=== PATIENT | female | born 1970 | race American Indian/Alaskan Native ===

== ENCOUNTER 2020-01-09 11:32 | Outpatient (REF) | payer MEDICAID, SELFPAY | END 2020-01-09 11:33 | disposition home or self-care (01) | LOC: HO.LAB 11:32 | PROVIDERS: PCP Registered Nurse; Visit Provider Internal Medicine | DX: Z20.828 Contact with and (suspected) exposure to other viral communicable diseases (principal) | CPT/HCPCS: C9803; U0003 ==

== ENCOUNTER 2020-01-10 07:48 | Outpatient (REF) | payer MEDICAID, SELFPAY ==
--- NOTE | 2020-01-10 07:57 | XR_ITS ---
EXAMINATION: XR SHOULDER, RIGHT CLINICAL INFORMATION: Pain. COMPARISON: None TECHNIQUE: AP external rotation, Grashey, scapular Y, and axillary views of the right shoulder. FINDINGS: The glenohumeral joint space is normal. There is mild periapical spurring in the right AC joint. No visible acute fracture, dislocation or subluxation seen. The soft tissues are normal. XR/XR shoulder RT min 2V IMPRESSION: Mild degenerative changes in the right AC joint. Rest of the right shoulder is unremarkable.
== END 2020-01-10 07:49 | disposition home or self-care (01) ==
LOC: HO.XRAY 07:48
PROVIDERS: PCP Registered Nurse; Visit Provider Registered Nurse
DX: M25.511 Pain in right shoulder (principal); G89.29 Other chronic pain
CPT/HCPCS: 73030

== ENCOUNTER 2020-02-06 09:00 | Outpatient (RCR) | payer MEDICAID, SELFPAY ==
[2020-01-09 08:12] VITALS: BP 118/56; PULSE 77
== END 2020-03-11 13:36 | disposition other institution (70) ==
LOC: HO.PT 09:00
PROVIDERS: PCP Registered Nurse; Visit Provider Registered Nurse
DX: M25.511 Pain in right shoulder (principal)
CPT/HCPCS: 97110; 97112; 97140; 97162; 97530

== ENCOUNTER → 2020-02-12 08:57 | Outpatient (BNVA) | payer MEDICAID, SELFPAY | PROVIDERS: PCP Registered Nurse; Visit Provider Nurse Practitioner | DX: Z13.89 Encounter for screening for other disorder (principal) | CPT/HCPCS: 99212 ==

== ENCOUNTER 2020-03-07 | Outpatient (REF) | payer MEDICAID, SELFPAY ==
[2020-03-11 14:51] LABS: FIT1 NEGATIVE (NEGATIVE); FIT2 NEGATIVE (NEGATIVE)
[2020-03-11 14:52] LABS: FIT Int Ctl YES
== END 2020-03-07 00:01 | disposition home or self-care (01) ==
LOC: HO.LNP
PROVIDERS: Visit Provider Nurse Practitioner
DX: Z12.11 Encounter for screening for malignant neoplasm of colon (principal); K21.9 Gastro-esophageal reflux disease without esophagitis
CPT/HCPCS: 82274

== ENCOUNTER 2020-03-16 10:13 | Outpatient (REF) | payer MEDICAID, SELFPAY ==
--- NOTE | 2020-03-16 10:17 | MM_ITS ---
EXAMINATION: MM SCREENING DIGITAL BREAST TOMOSYNTHESIS, BILATERAL CLINICAL INFORMATION: Screening. Asymptomatic. The lifetime risk of breast cancer based on the Tyrer-Cuzick Model is 9.2%. COMPARISON: Mammography: March 11, 2019 and studies dating back to November 20, 2010 TECHNIQUE: Digital breast tomosynthesis is performed in both the craniocaudal and mediolateral oblique views along with computer-aided detection (CAD). Synthesized 2D images are generated from the tomosynthesis. FINDINGS: The breasts are heterogeneously dense, which may obscure small masses (ACR BI-RADS breast composition Category c). There are no significant masses, abnormal calcifications, or other abnormalities. MM/MM tomosynthesis screening BI IMPRESSION: There are no significant changes from prior study. ASSESSMENT: BI-RADS 1: Negative RECOMMENDATION: Routine annual mammography screening. This patient's information was entered into a reminder system with a target due date for their next mammogram.
== END 2020-03-16 10:14 | disposition home or self-care (01) ==
LOC: HO.MAMMO 10:13
PROVIDERS: PCP Registered Nurse; Visit Provider Registered Nurse
DX: Z12.31 Encounter for screening mammogram for malignant neoplasm of breast (principal)
CPT/HCPCS: 77063; 77067

== ENCOUNTER → 2020-04-08 08:39 | Outpatient (BNVA) | payer MEDICAID, SELFPAY | PROVIDERS: PCP Registered Nurse; Visit Provider Nurse Practitioner ==

== ENCOUNTER 2020-05-15 11:41 | Outpatient (REF) | payer MEDICAID, SELFPAY ==
[2020-05-15 14:34] LABS: SARS COV2 PCR INHOUSE NEGATIVE (Negative)
== END 2020-05-15 11:42 | disposition home or self-care (01) ==
LOC: HO.LAB 11:41
PROVIDERS: Visit Provider Internal Medicine
DX: Z20.822 Contact with and (suspected) exposure to COVID-19 (principal)
CPT/HCPCS: C9803; U0003

== ENCOUNTER 2020-08-06 09:30 | Outpatient (REF) | payer MEDICAID, SELFPAY ==
[2020-08-06 11:49] LABS: MANUAL DIFF FLAG NO
[2020-08-06 12:03] LABS: Basophils Absolute Auto 0.1 X10*3/uL (0.0-0.2); Basophils Percent Auto 0.8 % (0-2); Eosinophils Absolute Auto 0.3 X10*3/uL (0.0-0.4); Eosinophils Percent Auto 2.9 % (0-4); Hemoglobin 14.1 g/dl (12.0-16.0); Imm Gran Abs Auto 0.05 X10*3/uL (0.00-0.03); Imm Gran Pct Auto 0.6 % (0.0-0.4); Lymphocytes Absolute Auto 3.4 X10*3/uL (1.2-4.9); Lymphocytes Percent Auto 38.8 % (20-40); Mean Corpuscular HGB Conc 32.8 g/dl (31.0-35.0); Mean Corpuscular Hemoglobin 30.7 pg (27.0-33.0); Mean Corpuscular Volume 93.5 fL (80-98); Mean Platelet Volume 8.9 fL (9.4-12.3); Monocytes Absolute Auto 0.7 X10*3/uL (0.1-1.2); Monocytes Percent Auto 7.8 % (2-11); Neutrophils Absolute Auto 4.3 X10*3/uL (2.0-8.3); Neutrophils Percent Auto 49.1 % (45-73); Platelet Count 310 X10*3/uL (160-400); Red Cell Distribution Width 13.2 % (11.0-16.0); White Blood Count 8.7 X10*3/uL (4.8-10.8)
[2020-08-06 12:33] LABS: Alanine Aminotransferase 15 U/L (0-31); Albumin Level 4.4 g/dL (3.5-5.0); Alkaline Phosphatase 53 U/L (39-117); Anion Gap 9 (12-20); Aspartate Amino Transferase 16 U/L (5-31); Blood Urea Nitrogen 18 mg/dL (9-16); Calcium 9.6 mg/dL (8.4-10.2); Carbon Dioxide 28 mmol/L (22-29); Chloride 108 mmol/L (96-108); Estimated Glomerular Filt Rate > 60; Glucose Random 85 mg/dL (60-115); Potassium 4.1 mmol/L (3.3-5.1); Sodium 141 mmol/L (135-145); Total Protein 6.7 g/dL (6.5-8.0)
== END 2020-08-06 09:31 | disposition home or self-care (01) ==
LOC: HO.LAB 09:30
PROVIDERS: PCP Registered Nurse; Referring Provider Registered Nurse; Visit Provider Nurse Practitioner
DX: K21.9 Gastro-esophageal reflux disease without esophagitis (principal); K59.00 Constipation, unspecified; R14.0 Abdominal distension (gaseous); F17.210 Nicotine dependence, cigarettes, uncomplicated; Z79.899 Other long term (current) drug therapy; Z85.038 Personal history of other malignant neoplasm of large intestine; Z12.11 Encounter for screening for malignant neoplasm of colon
CPT/HCPCS: 36415; 80053; 85025; 99212

== ENCOUNTER 2020-09-11 11:52 | Day surgery (SDC) | payer MEDICAID, SELFPAY ==
[2020-09-04 11:47] VITALS: BMI 25.4
--- NOTE | 2020-09-10 11:46 | HO.ANESPROP2 ---
Documented by User: Jennifer Seaman 09/10/20 11:47 HPI - Anesthesia Eval Consult details Narrative: 50yo F for Colonoscopy PMFSH Active Problems Active Problems: All Active Problems (Updated 09/04/20 @ 11:29 by Daniella Rocha) Abdominal bloating (Acute) GERD (gastroesophageal reflux disease) (Acute) Constipation (Acute) Colon cancer screening (Acute) Colon cancer (Acute) Past Medical History Medical History Anemia Chronic right shoulder pain Colon cancer Depression GERD (gastroesophageal reflux disease) Smoker Family History Family History Father FH: prostate cancer Paternal Aunt Breast cancer Surgical History Surgical History (Updated 09/04/20 @ 11:29 by Daniella Rocha) History of colon resection History of dilation and curettage History of excision of lesion History of exploratory laparotomy Hx of section Hx of cholecystectomy Hx of colonoscopy Hx of foot surgery Hx of hysterectomy Social History Social History (Updated 08/06/20 @ 09:51 by Lala Velasquez) Household Members: Spouse Are you a primary spiritual care coordinator to a significant other at home: No Do you presently have visiting nurse or other home services: No Alcohol intake: current Alcohol intake frequency: does not drink Patient Tobacco Use Status: Current everyday Tobacco user Tobacco use type: Cigarette Cigarette Packs Per Day: 0.5 Cigarettes Per Day: 10.0 Years Smoked: ~30 Smoked in Last 30 Days: Yes Patient Interested in Nicotine Replacement: Yes Patient Given Instructions on How to Stop Smoking: Yes Date Education Initiated: 09/04/20 Use of substances other than those prescribed or required for medical reasons: Yes Substance Use Type: Marijuana Substance Use Frequency: Occasionally Have you been hit, kicked, punched, or otherwise hurt by someone within the past year? If so, by whom?: No Are you DNR?: No Advance Directives: No Advance Directives Information Provided: No Advance Directives on File: No Recently lost weight without trying: No Eating poorly because of decreased appetite: No Nutrition Risks: No Nutritional Risk Meds Allergies Allergy/AdvReac Type Severity Reaction Status Date / Time aspirin [ASA] Allergy Mild BRUISES Verified 09/04/20 11:31 Home Medications Medication Instructions Recorded Confirmed Last Taken Type atorvastatin 20 mg tablet 1 tab PO DAILY 09/04/20 09/04/20 Unknown History cholecalciferol (vitamin D3) 50 1 tab PO DAILY 09/04/20 09/04/20 Unknown History mcg (2,000 unit) tablet (Vitamin D3) lidocaine 5 % topical patch patch TOPICAL 09/04/20 Unknown History nabumetone 500 mg tablet 1 tab PO BID 09/04/20 09/04/20 Unknown History oxcarbazepine 600 mg tablet 1 tab PO BID 09/04/20 09/04/20 Unknown History quetiapine 100 mg tablet 1 tab PO BEDTIME 09/04/20 09/04/20 Unknown History quetiapine 25 mg tablet 1 tab PO QAM 09/04/20 09/04/20 Unknown History sertraline 25 mg tablet 1 tab PO QAM 09/04/20 09/04/20 Unknown History Exam Exam Date and Time: September 10, 2020 1146 Height,Weight and Vital Signs: Height 5 ft 4 in Weight 67.132 kg Pertinent Lab Results Pertinent Lab Results: Laboratory Tests 08/06/20 08/06/20 11:00 11:00 WBC 8.7 Hgb 14.1 Hct 43.0 Plt Count 310 Sodium 141 Potassium 4.1 Chloride 108 Carbon Dioxide 28 BUN 18 H Creatinine 0.66 Assessment and Plan Assessment Anesthesia Assessment: Chart Reviewed Documented by User: Danielle Garvin 09/11/20 13:04 [facility] Past Medical History Medical History Anemia Chronic right shoulder pain Colon cancer Depression GERD (gastroesophageal reflux disease) Smoker Family History Family History Father FH: prostate cancer Paternal Aunt Breast cancer Surgical History Surgical History (Updated 09/04/20 @ 11:29 by Daniella Rocha) History of colon resection History of dilation and curettage History of excision of lesion History of exploratory laparotomy Hx of section Hx of cholecystectomy Hx of colonoscopy Hx of foot surgery Hx of hysterectomy Social History Social History (Updated 08/06/20 @ 09:51 by Lala Velasquez) Household Members: Spouse Are you a primary spiritual care coordinator to a significant other at home: No Do you presently have visiting nurse or other home services: No Alcohol intake: current Alcohol intake frequency: does not drink Patient Tobacco Use Status: Current everyday Tobacco user Tobacco use type: Cigarette Cigarette Packs Per Day: 0.5 Cigarettes Per Day: 10.0 Years Smoked: ~30 Smoked in Last 30 Days: Yes Patient Interested in Nicotine Replacement: Yes Patient Given Instructions on How to Stop Smoking: Yes Date Education Initiated: 09/04/20 Use of substances other than those prescribed or required for medical reasons: Yes Substance Use Type: Marijuana Substance Use Frequency: Occasionally Have you been hit, kicked, punched, or otherwise hurt by someone within the past year? If so, by whom?: No Are you DNR?: No Advance Directives: No Advance Directives Information Provided: No Advance Directives on File: No Recently lost weight without trying: No Eating poorly because of decreased appetite: No Nutrition Risks: No Nutritional Risk Meds Allergies Allergy/AdvReac Type Severity Reaction Status Date / Time aspirin [ASA] Allergy Mild BRUISES Verified 09/04/20 11:31 Home Medications Medication Instructions Recorded Confirmed Last Taken Type atorvastatin 20 mg tablet 1 tab PO DAILY 09/04/20 09/04/20 Unknown History cholecalciferol (vitamin D3) 50 1 tab PO DAILY 09/04/20 09/04/20 Unknown History mcg (2,000 unit) tablet (Vitamin D3) lidocaine 5 % topical patch patch TOPICAL 09/04/20 Unknown History nabumetone 500 mg tablet 1 tab PO BID 09/04/20 09/04/20 Unknown History oxcarbazepine 600 mg tablet 1 tab PO BID 09/04/20 09/04/20 Unknown History quetiapine 100 mg tablet 1 tab PO BEDTIME 09/04/20 09/04/20 Unknown History quetiapine 25 mg tablet 1 tab PO QAM 09/04/20 09/04/20 Unknown History sertraline 25 mg tablet 1 tab PO QAM 09/04/20 09/04/20 Unknown History Exam Airway Mallampati Class: II TM Dist: >3cm Neck ROM: Full Heart: rrr Lungs: cta Assessment and Plan Assessment Anesthesia Assessment: Anesthesia Plan Discussed and Chart Reviewed Final Anesthetic Review NPO: Yes ASA Class: II Final Preanesthetic Review: No Changes in Pt Med Stat, Meds/Allgs Chart Reviewed and Consent Obtained/Reviewed Patient Risk: Intermediate Procedure Risk: Intermediate Anesthetic Plan Anesthetic Plan: MAC: Disposition: Standard PACU
--- NOTE | 2020-09-11 12:01 | P.HPSUR_ITS ---
Pre-Procedural Eval Section A Date of Service: 09/11/20 Section B Chief Complaint: colon screen Relevant Family History (Specify if Yes): No Relevant Social History: Tobacco Use Present Medications: see Short Stay Collaborative assessment Medical History: Significant History (Anemia Chronic right shoulder pain Colon cancer Depression GERD (gastroesophageal reflux disease) Smoker) History of Previous Operations: Relevant previous surgery/procedure and date(s) (History of colon resection History of dilation and curettage History of excision of lesion History of exploratory laparotomy Hx of section Hx of cholecystectomy Hx of colonoscopy Hx of foot surgery Hx of hysterectomy) Allergies: Allergies Allergy/AdvReac Type Severity Reaction Status Date / Time aspirin [ASA] Allergy Mild BRUISES Verified 09/04/20 11:31 Review of Systems Sugical H&P ROS: Negative: Constitution, Cardiovascular, Respiratory, Neurological, Psychiatric, Hem-Onc, Allergic/Immunologic, Gastrointestinal, Genitourinary, Musculoskeletal, Integumentary, Endocrine and Eyes/Ear s/Nose/Throat Exam Surgical H&P Exam: Normal: HEENT, Normal: Heart, Normal: Lungs, Normal: Extremities, Normal: Abdomen, Normal: Skin and Normal: Neurological Plan Diagnosis/Plan: Unchanged I have reviewed the history and physical and performed a pertinent physical examination on my patient. No changes have occurred unless specified.
[2020-09-11 12:21] VITALS: BP 126/76; PULSE 64; RESP 16; TEMP 36.5; O2SAT 97
[2020-09-11] MEDS: Lactated Ringers 1,000 ML 100 ML IVCONT (12:27)
--- NOTE | 2020-09-11 13:33 | P.BOP_ITS ---
Brief Operative Note Date of Service: 09/11/20 Pre-op diagnosis: colon screening, personal hx of colon cancer aged 33 Post-op diagnosis: same Procedure: see op note Surgeon: Vasquez Pena MD Anesthesia: MAC Was an Per Diem Interpreter used for this Procedure?: No Estimated blood loss (mL): 0 Condition: stable Disposition: PACU
--- NOTE | 2020-09-11 13:34 | W.PM.OPN ---
Operative Note Operative Note Date of Service: 09/11/20 Narrative: Operative Information Procedure Description: Colonoscopy COLONOSCOPY Instrument: Olympus variable stiffness pediatric scope 190L Colonoscopy Monitoring: Vital signs and clinical assessment, continuous EKG monitoring, Pulse oximetry, Carbon Dioxide monitoring and blood pressure monitoring were done throughout the procedure. Colon withdrawal time was 11 minutes. Procedure: The patient was placed in the left lateral decubitis position and pre-procedure medications were administered. After a digital rectal examination of the ano-rectum, the video colonoscope was inserted into the rectum and advanced through the colon to the cecum/TI. The colonoscope was slowly withdrawn in a retrograde panoramic fashion and the colon mucosa was carefully examined including a retroflexed view of the rectum. Findings and interventions are described below. Procedure Difficulty: easy Findings: Terminal Ileum-normal Cecum:normal Ascending Colon: normal Transverse Colon -normal Descending Colon:normal Sigmoid Colon: normal Rectum: Retroflexion with small internal hemorrhoids, grade I Anorectum - normal Colon preparation: [place] Bowel Preparation Scale Right colon; 2 Transverse colon: 3 Left colon; 3 (0 = Unprepared colon segment with mucosa not seen due to solid stool that cannot be cleared. 1 = Portion of mucosa of the colon segment seen, but other areas of the colon segment not well seen due to staining, residual stool and/or opaque liquid. 2 = Minor amount of residual staining, small fragments of stool and/or opaque liquid, but mucosa of colon segment seen well. 3 = Entire mucosa of colon segment seen well with no residual staining, small fragments of stool or opaque liquid) Impression and Post Procedure Diagnosis: internal hemorrhoids Plan: High fiber diet leaflet Avoid straining at stool, epsom salts and sitz bath, anusol supps or cream Repeat Colonoscopy in 5 years due to personal Hx of colon cancer or earlier if clinically indicated Above findings were reviewed with the patient and relevant handouts were provided if indicated.
[2020-09-11 13:37] VITALS: BP 117/67; PULSE 64; RESP 18; TEMP 37.3; O2SAT 98
[2020-09-11 13:52] VITALS: BP 135/72; PULSE 67; RESP 17; TEMP 36.7; O2SAT 99
== END 2020-09-11 14:46 | disposition home or self-care (01) ==
PROVIDERS: PCP Registered Nurse; Visit Provider Internal Medicine Gastroenterology
PROC: 0DJD8ZZ Inspection of Lower Intestinal Tract, Via Natural or Artificial Opening Endoscopic (ICD-10-PCS; CPT 45378; principal; 2020-09-11 13:00)
DX: Z12.11 Encounter for screening for malignant neoplasm of colon (principal); Z85.038 Personal history of other malignant neoplasm of large intestine; K64.0 First degree hemorrhoids; K21.9 Gastro-esophageal reflux disease without esophagitis; D64.9 Anemia, unspecified; F32.9 Major depressive disorder, single episode, unspecified; Z90.49 Acquired absence of other specified parts of digestive tract; F17.210 Nicotine dependence, cigarettes, uncomplicated; F12.90 Cannabis use, unspecified, uncomplicated; Z79.899 Other long term (current) drug therapy; Z88.8 Allergy status to other drugs, medicaments and biological substances
CPT/HCPCS: 45378

== ENCOUNTER → 2020-10-01 08:23 | Outpatient (BNVA) | payer MEDICAID, SELFPAY | PROVIDERS: PCP Registered Nurse; Referring Provider Registered Nurse; Visit Provider Nurse Practitioner | DX: Z12.11 Encounter for screening for malignant neoplasm of colon (principal); K21.9 Gastro-esophageal reflux disease without esophagitis; K59.00 Constipation, unspecified; C18.9 Malignant neoplasm of colon, unspecified; R14.0 Abdominal distension (gaseous) | CPT/HCPCS: 99212 ==

== ENCOUNTER 2020-12-06 16:38 | Emergency (ER) | payer MEDICAID, SELFPAY ==
--- NOTE | ~2020-12-06 | CT_ITS ---
EXAMINATION: CT ABDOMEN AND PELVIS WITH CONTRAST CLINICAL INFORMATION: Left lower quadrant pain. Diarrhea. COMPARISON: Most recent CT abdomen/pelvis dated 03/20/2014. TECHNIQUE: Multidetector volumetric images were obtained from the superior aspect of the liver through the pubic symphysis following administration 85 mL of Omnipaque 350 intravenous contrast. Sagittal and coronal reformatted images were obtained on the technologist's workstation. Oral contrast: No. This CT examination was performed using dose optimization techniques as appropriate, variously including the following: *Automated exposure control *Adjustment of mA and/or kV according to patient size (this includes techniques or standardized protocols for targeted exams where dose is matched to indication/reason for exam; i.e. extremities or head) *Use of iterative reconstruction technique DLP: 502 mGy-cm FINDINGS: LUNG BASES: The visualized lung bases are unremarkable. LIVER, GALLBLADDER, AND BILIARY TREE: The liver is normal in size, shape, and attenuation. Redemonstration of a left hepatic lobe probable simple cyst, unchanged. No new focal hepatic lesion or biliary ductal dilatation is present. Status post cholecystectomy. PANCREAS: Unremarkable. SPLEEN: Unremarkable. ADRENAL GLANDS: Unremarkable. KIDNEYS AND URETERS: The kidneys are normal in size, shape, and attenuation. No hydronephrosis, hydroureter, or calculi seen. No perinephric stranding. BLADDER: Unremarkable. GASTROINTESTINAL TRACT: Unremarkable rectosigmoid anastomosis. The distal transverse and descending colon are nondistended, limiting evaluation. No significant bowel wall thickening or associated inflammatory change. No small or large bowel obstruction. Unremarkable appendix. PERITONEAL CAVITY: No intra-abdominal free air or free fluid. No intra-abdominal mass or organized fluid collection/abscess formation. ABDOMINAL WALL: No significant hernia is appreciated. LYMPH NODES: Normal. VASCULAR: Unremarkable. PELVIC VISCERA: Status post hysterectomy. OSSEOUS STRUCTURES: Unremarkable. CT/CT abdomen pelvis w con IMPRESSION: 1. No significant bowel wall thickening or associated inflammatory change. Nondistention of the distal transverse and descending colon, somewhat limiting evaluation. Unremarkable rectosigmoid anastomosis. No small or large bowel obstruction. Unremarkable appendix. 2. No intra-abdominal mass, lymphadenopathy, or ascites.
--- NOTE | 2020-12-06 17:00 | ED.ABDPAIN ---
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 Mode of arrival: EMS Limitations: no limitations History of Present Illness MD elicited complaint: abdominal pain (n/v/d) Pertinent past history: other (?describes twisting of bowels in past requiring surgery - multiple abdominal surgeries) Onset (ago): hour(s) (started at 4pm today ) Pain Consistency: colicky Location: periumbilical and LLQ Severity: severe Quality: stabbing Radiation: none Migration to: no migration Exacerbating factors: movement Relieving factors: nothing Context: history of similar episodes (remote) Associated symptoms: nausea, vomiting, diarrhea and chills Related Data Home Medications Medication Instructions Recorded Confirmed atorvastatin 20 mg tablet 1 tab PO DAILY 09/04/20 09/04/20 cholecalciferol (vitamin D3) 50 1 tab PO DAILY 09/04/20 09/04/20 mcg (2,000 unit) tablet (Vitamin D3) lidocaine 5 % topical patch patch TOPICAL 09/04/20 nabumetone 500 mg tablet 1 tab PO BID 09/04/20 09/04/20 oxcarbazepine 600 mg tablet 1 tab PO BID 09/04/20 09/04/20 quetiapine 100 mg tablet 1 tab PO BEDTIME 09/04/20 09/04/20 quetiapine 25 mg tablet 1 tab PO QAM 09/04/20 09/04/20 sertraline 25 mg tablet 1 tab PO QAM 09/04/20 09/04/20 Previous Rx's Medication Instructions Recorded docusate sodium 100 mg capsule 100 mg PO DAILY #30 cap 04/08/20 (Colace) sennosides 8.6 mg capsule (senna) 17.2 mg PO BEDTIME #60 cap 04/08/20 simethicone 180 mg capsule (Gas 180 mg PO .Q.i.d. #120 cap 04/08/20 Relief (simethicone)) omeprazole 20 mg capsule,delayed 20 mg PO DAILY #30 cap 08/06/20 release ondansetron 4 mg disintegrating 4 mg PO Q8H PRN #20 tab 12/06/20 tablet Allergies Allergy/AdvReac Type Severity Reaction Status Date / Time aspirin [ASA] Allergy Mild BRUISES Verified 12/06/20 17:05 Review of Systems Review of Systems Constitutional : No Weight loss, No Fever, pos Chills ENT/Mouth : No sore throat, No Rhinorrhea Eyes: No Swelling, No Redness Cardiovascular : No Chest Pain, No SOB, NoEdema Respiratory : No Cough, No Sputum, No Wheezing Gastrointestinal : Positive Nausea, Positive Vomiting, positive Diarrhea, positive abdominal Pain, No Hematochezia, No Melena Genitourinary : No Dysuria, No Urinary Frequency, No Hematuria, No Urgency Musculoskeletal : No joint pain, No Myalgias, No Joint Swelling Skin : No Skin Lesions, No rash Neuro : No Weakness, No Numbness, No Dizziness, No Headache Psych : No Anxiety/Panic, No Depression Heme/Lymph: No Bruising, No Lymphadenopathy Endocrine : No Polyuria, No Polydipsia All other systems reviewed and are negative. Physical Exam Vital Signs: Vital Signs: Last Vital Signs Temp 97.9 F 12/06/20 18:17 Pulse 66 12/06/20 20:20 Resp 18 12/06/20 20:20 BP 128/67 12/06/20 20:20 Pulse Ox 100 12/06/20 20:20 Body Mass Index 27.4 Appearance: Alert. Oriented X3. in pain mild acute distress. Eyes: Pupils equal, round and reactive to light. ENT: Pharynx moderately dry MM Neck: Normal inspection. Neck supple. CVS: Normal heart rate and rhythm. Pulses normal. Respiratory: No respiratory distress. Breath sounds normal. Abdomen: Soft and moderate ttp in LLQ , had reportedly diffuse diarrhea on arrival Skin: Skin warm and dry. pale skin color. Normal skin turgor. Extremities: No lower extremity edema. No calf ttp Neuro: Oriented X 3. No motor deficit. No sensory deficit. Course Course Course Narrative: negative CT scan of abdomen at this time WBC likely due to vomiting and diarrhea tolerating PO, feels much better, no diarrhea to test at this time MDM - Abdominal Pain MDM Narrative Medical decision making narrative: 50 yo female with hx of GERD, prior multiple abdominal surgeries comes in with abrupt onset LLQ pain and n/v/d - at this time labs, IVF, IV morphine for pain. She denies sick contacts, food exposures, abx use. CT scan for colitis/ SBO - dispo per results and findings. Lab Data Result diagrams: 12/06/20 17:50 12/06/20 17:50 Labs: Lab Results 12/06/20 12/06/20 12/06/20 Range/Units 17:34 17:50 17:50 WBC 15.3 H (4.8-10.8) X10*3/uL RBC 4.47 (4.20-5.50) X10*6/uL Hgb 14.2 (12.0-16.0) g/dl Hct 41.8 (37-47) % MCV 93.5 (80-98) fL MCH 31.8 (27.0-33.0) pg MCHC 34.0 (31.0-35.0) g/dl RDW 13.1 (11.0-16.0) % Plt Count 265 (160-400) X10*3/uL MPV 9.2 L (9.4-12.3) fL Immature Gran % (Auto) 1.0 H (0.0-0.4) % Neut % (Auto) 76.0 H (45-73) % Lymph % (Auto) 17.2 L (20-40) % [place] % (Auto) 4.4 (2-11) % Eos % (Auto) 1.0 (0-4) % Baso % (Auto) 0.4 (0-2) % Lymph # (Auto) 2.6 (1.2-4.9) X10*3/uL [place] # (Auto) 0.7 (0.1-1.2) X10*3/uL Eos # (Auto) 0.2 (0.0-0.4) X10*3/uL Baso # (Auto) 0.1 (0.0-0.2) X10*3/uL Abs Immat Gran (auto) 0.16 H (0.00-0.03) X10*3/uL Absolute Neuts (auto) 11.7 H (2.0-8.3) X10*3/uL Absolute Nucleated RBC 0.000 (0.0-0.012) X10*3/uL Nucleated RBC % (auto) 0.0 (0.0-0.2) /100WBC Sodium 140 (135-145) mmol/L Potassium 3.9 (3.3-5.1) mmol/L Chloride 106 (96-108) mmol/L Carbon Dioxide 26 (22-29) mmol/L Anion Gap 12 (12-20) BUN 17 H (9-16) mg/dL Creatinine 0.71 (0.5-1.4) mg/dL Estim Creat Clear Calc 90.4 Estimated GFR > 60 Random Glucose 104 (60-115) mg/dL Calcium 10.1 (8.4-10.2) mg/dL Magnesium 2.1 (1.6-2.6) mg/dL Total Bilirubin 1.2 H (0.0-1.0) mg/dL Direct Bilirubin 0.4 (0.0-0.5) mg/dL AST 17 (5-31) U/L ALT 17 (0-31) U/L Alkaline Phosphatase 56 (39-117) U/L Total Protein 6.9 (6.5-8.0) g/dL Albumin 4.5 (3.5-5.0) g/dL Lipase 7 L (8-78) U/L COVID-19 ([facility]) Negative (Negative) COVID-19 Clin Com See Note Discharge Plan Discharge Clinical Impression: Diarrhea Qualifiers: Diarrhea type: unspecified type Qualified Code(s): R19.7 - Diarrhea, unspecified Abdominal pain Qualifiers: Abdominal location: left lower quadrant Qualified Code(s): R10.32 - Left lower quadrant pain Patient Disposition: Home, Self-Care Instructions: Acute Diarrhea (ED), Abdominal Pain (ED) Additional Instructions: return to ED for any worsening symptoms or concerns avoid dairy for the next few days, yogurt is okay Prescriptions: New ondansetron 4 mg tablet,disintegrating 4 mg PO Q8H PRN (Reason: nausea and vomiting) Qty: 20 RF: 0 No Action quetiapine 25 mg tablet 1 tab PO QAM RF: 0 atorvastatin 20 mg tablet 1 tab PO DAILY RF: 0 quetiapine 100 mg tablet 1 tab PO BEDTIME RF: 0 lidocaine 5 % adhesive patch,medicated topical RF: 0 sertraline 25 mg tablet 1 tab PO QAM RF: 0 oxcarbazepine 600 mg tablet 1 tab PO BID RF: 0 nabumetone 500 mg tablet 1 tab PO BID RF: 0 cholecalciferol (vitamin D3) [Vitamin D3] 50 mcg (2,000 unit) tablet 1 tab PO DAILY RF: 0 docusate sodium [Colace] 100 mg capsule 100 mg PO DAILY Qty: 30 RF: 6 senna 8.6 mg capsule 17.2 mg PO BEDTIME Qty: 60 RF: 4 simethicone [Gas Relief (simethicone)] 180 mg capsule 180 mg PO .Q.i.d. Qty: 120 RF: 4 omeprazole 20 mg capsule,delayed release(DR/EC) 20 mg PO DAILY Qty: 30 RF: 6 Stand Alone Forms: Work/School Release Print Language: Romanian [facility] Past Medical History Attestation statement: The following information was validated with the patient. Medical History Anemia Chronic right shoulder pain Colon cancer Depression GERD (gastroesophageal reflux disease) Smoker Surgical History History of colon resection History of dilation and curettage History of excision of lesion History of exploratory laparotomy Hx of section Hx of cholecystectomy Hx of colonoscopy Hx of foot surgery Hx of hysterectomy Family History Family History Father FH: prostate cancer Paternal Aunt Breast cancer Social History Social History Household Members: Spouse Are you a primary acute care occupational therapist to a significant other at home: No Do you presently have visiting nurse or other home services: No Alcohol intake: never Patient Tobacco Use Status: Current everyday Tobacco user Tobacco use type: Cigarette Cigarette Packs Per Day: 0.5 Cigarettes Per Day: 10.0 Years Smoked: ~30 Use of substances other than those prescribed or required for medical reasons: No Substance Use Type: Marijuana Advance Directives: No Advance Directives Information Provided: No Patient : No
[2020-12-06 17:06] VITALS: BP 111/78; BP 131/62; PULSE 51; PULSE 58; RESP 18; TEMP 36.6; O2SAT 100; O2SAT 98; BMI 27.4
[2020-12-06 17:57] LABS: MANUAL DIFF FLAG NO
[2020-12-06] MEDS: ondansetron HCL 4 MG/2 ML VIAL IVPUSH (17:59)
[2020-12-06] MEDS: Morphine Sulfate 4 MG/ML CARTRIDGE IVPUSH (17:59)
[2020-12-06] MEDS: 0.9 % Sodium Chloride 1,000 ML 999 ML IVCONT (17:59)
[2020-12-06 18:11] LABS: COVID-19 Test Negative (Negative)
[2020-12-06 18:17] VITALS: BP 115/55; PULSE 58; RESP 18; TEMP 36.6; O2SAT 97
[2020-12-06 18:17] LABS: Alanine Aminotransferase 17 U/L (0-31); Albumin Level 4.5 g/dL (3.5-5.0); Alkaline Phosphatase 56 U/L (39-117); Anion Gap 12 (12-20); Aspartate Amino Transferase 17 U/L (5-31); Bilirubin Direct 0.4 mg/dL (0.0-0.5); Bilirubin Total 1.2 mg/dL (0.0-1.0); Blood Urea Nitrogen 17 mg/dL (9-16); Calcium 10.1 mg/dL (8.4-10.2); Carbon Dioxide 26 mmol/L (22-29); Chloride 106 mmol/L (96-108); Creatinine Clr Calc Pharmacy 90.4; Estimated Glomerular Filt Rate > 60; Glucose Random 104 mg/dL (60-115); Lipase 7 U/L (8-78); Magnesium 2.1 mg/dL (1.6-2.6); Potassium 3.9 mmol/L (3.3-5.1); Sodium 140 mmol/L (135-145); Total Protein 6.9 g/dL (6.5-8.0)
[2020-12-06 18:30] LABS: Basophils Absolute Auto 0.1 X10*3/uL (0.0-0.2); Basophils Percent Auto 0.4 % (0-2); Eosinophils Absolute Auto 0.2 X10*3/uL (0.0-0.4); Hematocrit 41.8 % (37-47); Hemoglobin 14.2 g/dl (12.0-16.0); Imm Gran Abs Auto 0.16 X10*3/uL (0.00-0.03); Lymphocytes Absolute Auto 2.6 X10*3/uL (1.2-4.9); Lymphocytes Percent Auto 17.2 % (20-40); Mean Corpuscular Hemoglobin 31.8 pg (27.0-33.0); Mean Corpuscular Volume 93.5 fL (80-98); Mean Platelet Volume 9.2 fL (9.4-12.3); Monocytes Absolute Auto 0.7 X10*3/uL (0.1-1.2); Monocytes Percent Auto 4.4 % (2-11); Neutrophils Absolute Auto 11.7 X10*3/uL (2.0-8.3); Platelet Count 265 X10*3/uL (160-400); Red Blood Count 4.47 X10*6/uL (4.20-5.50); Red Cell Distribution Width 13.1 % (11.0-16.0); White Blood Count 15.3 X10*3/uL (4.8-10.8)
[2020-12-06] MEDS: iohexoL 350 MG/ML 100 ML INFUS..BTL IV (18:32)
[2020-12-06 20:20] VITALS: BP 128/67; PULSE 66; RESP 18; O2SAT 100
[2020-12-06 20:27] LABS: Appearance Urine CLEAR; Color Urine YELLOW; Glucose Urine UA NEG (NEG); Leukocyte Esterase Urine NEG (NEG); Nitrite Urine NEG (NEG); Specific Gravity - Urine <= 1.005 (1.005-1.025); UACC Culture Trigger NO; Urine Blood TRACE (NEG); Urine Ketones 15 MG/DL (NEG); Urine Protein NEG (NEG-TRACE)
--- NOTE | 2020-12-06 20:33 | PC.NURSE ---
IV fluids continue to infuse, reconnected s/p dc for toileting needs. Pt with approx 500mls remaining in the bag. MD de león to bedside to make patient aware that her CT was negative and that she is okay to drink if she feels well enough. Pt given gingerale per request and urine sent down for testing. Call tian in reach, RN will continue to monitor.
[2020-12-06 20:54] LABS: Bacteria Urine TRACE /LPF; RBC Urine 0-2 /HPF (0); Squamous Epithelial Cell Urine 2+ /LPF; WBC Urine 0 /HPF (0-4)
== END 2020-12-06 21:41 | disposition home or self-care (01) ==
PROVIDERS: Emergency Provider Emergency Medicine
DX: R11.2 Nausea with vomiting, unspecified (principal); R10.32 Left lower quadrant pain; R19.7 Diarrhea, unspecified; Z20.822 Contact with and (suspected) exposure to COVID-19; Z79.899 Other long term (current) drug therapy
CPT/HCPCS: 36415; 74177; 80048; 80076; 81001; 83690; 83735; 85025; 87635; 96361; 96374; 96375; 99284; J2270; J2405; Q9967

== ENCOUNTER 2020-12-07 09:31 | Emergency (ER) | payer MEDICAID, SELFPAY ==
[2020-12-07 09:32] VITALS: BP 129/81; PULSE 94; RESP 18; TEMP 36.8; O2SAT 98; BMI 24.0
--- NOTE | 2020-12-07 10:04 | ED_ITS ---
HPI - General Adult General Chief complaint: General Medical Stated complaint: rectal bleeding Time Seen by Provider: 12/07/20 10:01 Source: patient Limitations: no limitations History of Present Illness HPI narrative: This is a 50 years old of female presented to the emergency department with a chief complaint of Rectal bleeding, the patient was seen 9 days emergency room last night she had CT scan of the abdomen and pelvis which was normal she was discharged home . Hematoma and she had large amount of bleeding per patient. No vomiting no hematochezia Onset (ago): hour(s) (3) Radiation: non-radiation Severity: moderate Quality: burning Relieving factors: none Exacerbating factors: none Related Data Home Medications Medication Instructions Recorded Confirmed atorvastatin 20 mg tablet 1 tab PO BEDTIME 09/04/20 12/06/20 cholecalciferol (vitamin D3) 50 1 tab PO DAILY 09/04/20 12/06/20 mcg (2,000 unit) tablet (Vitamin D3) lidocaine 5 % topical patch 1 patch TOPICAL DAILY 09/04/20 12/06/20 nabumetone 500 mg tablet 1 tab PO BID 09/04/20 12/06/20 oxcarbazepine 600 mg tablet 1 tab PO BID 09/04/20 12/06/20 quetiapine 100 mg tablet 1 tab PO BEDTIME 09/04/20 12/06/20 quetiapine 25 mg tablet 1 tab PO QAM 09/04/20 12/06/20 sertraline 25 mg tablet 1 tab PO QAM 09/04/20 12/06/20 Previous Rx's Medication Instructions Recorded docusate sodium 100 mg capsule 100 mg PO DAILY #30 cap 04/08/20 (Colace) sennosides 8.6 mg capsule (senna) 17.2 mg PO BEDTIME #60 cap 04/08/20 simethicone 180 mg capsule (Gas 180 mg PO .Q.i.d. #120 cap 04/08/20 Relief (simethicone)) omeprazole 20 mg capsule,delayed 20 mg PO DAILY #30 cap 08/06/20 release ondansetron 4 mg disintegrating 4 mg PO Q8H PRN #20 tab 12/06/20 tablet Allergies Allergy/AdvReac Type Severity Reaction Status Date / Time aspirin [ASA] Allergy Mild BRUISES Verified 12/06/20 17:05 Review of Systems Review of Systems: Yes all other systems are reviewed and are negative Cardiovascular: Cardiovascular: Denies chest pain Gastrointestinal: Gastrointestinal: Reports hematochezia and Denies coffee ground emesis Neurologic: Reports system reviewed and no additional complaints, except as documented Hematologic/Lymphatic: Hematologic/Lymphatic: Reports no additional hematologic/lymphatic complaints [facility] Past Medical History Medical History Anemia Chronic right shoulder pain Colon cancer Depression GERD (gastroesophageal reflux disease) Smoker Surgical History History of colon resection History of dilation and curettage History of excision of lesion History of exploratory laparotomy Hx of section Hx of cholecystectomy Hx of colonoscopy Hx of foot surgery Hx of hysterectomy Family History Family History Father FH: prostate cancer Paternal Aunt Breast cancer Social History Social History Household Members: Spouse Are you a primary children's zoo caretaker to a significant other at home: No Do you presently have visiting nurse or other home services: No Alcohol intake: never Patient Tobacco Use Status: Current everyday Tobacco user Tobacco use type: Cigarette Cigarette Packs Per Day: 0.5 Cigarettes Per Day: 10.0 Years Smoked: ~30 Substance Use Type: Marijuana Advance Directives: No Advance Directives Information Provided: No Patient : No Physical Exam Vital Signs: Vital Signs: Last Vital Signs Temp 98.3 F 12/07/20 09:32 Pulse 94 12/07/20 09:32 Resp 18 12/07/20 09:32 BP 129/81 12/07/20 09:32 Pulse Ox 98 12/07/20 09:32 Body Mass Index 24.0 Const: General: cooperative and anxious HENMT: Head: Yes normal to inspection Ears: hearing grossly normal bilaterally Face and sinus: Yes normal facial exam Mouth: Normal oral and palatal mucosa present Throat: Yes posterior oropharynx normal Chest: Chest palpation & inspection: normal inspection of the chest Resp: Effort & Inspection: normal respiratory effort Auscultation: clear to auscultation bilaterally Cardio: Jugular venous distension: no JVD Rate: regular rate Rhythm: regular rhythm GI: Inspection: Yes normal to inspection Palpation (GI): Soft to palpation, nontender, no guarding and not rigid Rectal Exam - Female: visual inspection normal, normal sphincter tone, No Abnormal stool present and heme positive stool Skin: General skin exam: no rashes or lesions noted Course Reevaluation(s) Reevaluation #1: Patient remained hemodynamically stable. She had a CT scan of the abdomen yesterday which was normal. hemoglobin remained stable from 13.7- 13.1(after Iv fluids). Patient had a colonoscopy on 09/11/2020 which was perfectly normal ,normal colon only internal hemorrhoid. I think this patient can be discharged home with a follow-up with the environmental auditor as outpatient. She already has an established environmental auditor Dr Pena. I placed a phone call to the on-call GI service. Reevaluation #2: I discussed the case with GI regional sales associate Dr Montes it is reasonable to disharge pt home with GI follow up as outpatient Medical Decision Making Lab Data Result diagrams: 12/07/20 12:22 12/07/20 10:16 Labs: Lab Results 12/07/20 12/07/20 12/07/20 Range/Units 10:16 10:16 11:05 WBC 10.1 (4.8-10.8) X10*3/uL RBC 4.43 (4.20-5.50) X10*6/uL Hgb 13.7 (12.0-16.0) g/dl Hct 41.0 (37-47) % MCV 92.6 (80-98) fL MCH 30.9 (27.0-33.0) pg MCHC 33.4 (31.0-35.0) g/dl RDW 13.1 (11.0-16.0) % Plt Count 245 (160-400) X10*3/uL MPV 9.1 L (9.4-12.3) fL Immature Gran % (Auto) 0.3 (0.0-0.4) % Neut % (Auto) 72.0 (45-73) % Lymph % (Auto) 20.1 (20-40) % Ventura % (Auto) 5.9 (2-11) % Eos % (Auto) 1.3 (0-4) % Baso % (Auto) 0.4 (0-2) % Lymph # (Auto) 2.0 (1.2-4.9) X10*3/uL Ventura # (Auto) 0.6 (0.1-1.2) X10*3/uL Eos # (Auto) 0.1 (0.0-0.4) X10*3/uL Baso # (Auto) 0.0 (0.0-0.2) X10*3/uL Abs Immat Gran (auto) 0.03 (0.00-0.03) X10*3/uL Absolute Neuts (auto) 7.3 (2.0-8.3) X10*3/uL Absolute Nucleated RBC 0.000 (0.0-0.012) X10*3/uL Nucleated RBC % (auto) 0.0 (0.0-0.2) /100WBC PT 13.0 (9.9-13.0) SEC INR 1.1 (0.9-1.1) APTT 36.7 (24.1-38.0) SEC Sodium 137 (135-145) mmol/L Potassium 3.9 (3.3-5.1) mmol/L Chloride 105 (96-108) mmol/L Carbon Dioxide 23 (22-29) mmol/L Anion Gap 13 (12-20) BUN 11 (9-16) mg/dL Creatinine 0.64 (0.5-1.4) mg/dL Estim Creat Clear Calc 88.7 Estimated GFR > 60 Random Glucose 94 (60-115) mg/dL Calcium 9.5 (8.4-10.2) mg/dL Total Bilirubin 1.7 H (0.0-1.0) mg/dL AST 56 H (5-31) U/L ALT 93 H (0-31) U/L Alkaline Phosphatase 71 D (39-117) U/L Total Protein 6.7 (6.5-8.0) g/dL Albumin 4.3 (3.5-5.0) g/dL 12/07/ Range/Units 12:22 WBC 10.1 (4.8-10.8) X10*3/uL RBC 4.17 L (4.20-5.50) X10*6/uL Hgb 13.1 (12.0-16.0) g/dl Hct 39.0 (37-47) % MCV 93.5 (80-98) fL MCH 31.4 (27.0-33.0) pg MCHC 33.6 (31.0-35.0) g/dl RDW 13.0 (11.0-16.0) % Plt Count 242 (160-400) X10*3/uL MPV 9.0 L (9.4-12.3) fL Immature Gran % (Auto) 0.3 (0.0-0.4) % Neut % (Auto) 67.4 (45-73) % Lymph % (Auto) 24.8 (20-40) % Ventura % (Auto) 6.0 (2-11) % Eos % (Auto) 1.0 (0-4) % Baso % (Auto) 0.5 (0-2) % Lymph # (Auto) 2.5 (1.2-4.9) X10*3/uL Ventura # (Auto) 0.6 (0.1-1.2) X10*3/uL Eos # (Auto) 0.1 (0.0-0.4) X10*3/uL Baso # (Auto) 0.1 (0.0-0.2) X10*3/uL Abs Immat Gran (auto) 0.03 (0.00-0.03) X10*3/uL Absolute Neuts (auto) 6.8 (2.0-8.3) X10*3/uL Absolute Nucleated RBC 0.000 (0.0-0.012) X10*3/uL Nucleated RBC % (auto) 0.0 (0.0-0.2) /100WBC PT (9.9-13.0) SEC INR (0.9-1.1) APTT (24.1-38.0) SEC Sodium (135-145) mmol/L Potassium (3.3-5.1) mmol/L Chloride (96-108) mmol/L Carbon Dioxide (22-29) mmol/L Anion Gap (12-20) BUN (9-16) mg/dL Creatinine (0.5-1.4) mg/dL Estim Creat Clear Calc Estimated GFR Random Glucose (60-115) mg/dL Calcium (8.4-10.2) mg/dL Total Bilirubin (0.0-1.0) mg/dL AST (5-31) U/L ALT (0-31) U/L Alkaline Phosphatase (39-117) U/L Total Protein (6.5-8.0) g/dL Albumin (3.5-5.0) g/dL Discharge Plan Discharge Clinical Impression: Bright red rectal bleeding Patient Disposition: Home, Self-Care Instructions: Rectal Bleeding (ED) Additional Instructions: Please call Dr. Pena for follow-up on Wednesday morning, return to the emergency room if you worse, if you feel lightheaded, if you of a more episodes or active bleeding Prescriptions: No Action quetiapine 25 mg tablet 1 tab PO QAM RF: 0 atorvastatin 20 mg tablet 1 tab PO BEDTIME RF: 0 quetiapine 100 mg tablet 1 tab PO BEDTIME RF: 0 lidocaine 5 % adhesive patch,medicated 1 patch topical DAILY RF: 0 sertraline 25 mg tablet 1 tab PO QAM RF: 0 oxcarbazepine 600 mg tablet 1 tab PO BID RF: 0 nabumetone 500 mg tablet 1 tab PO BID RF: 0 cholecalciferol (vitamin D3) [Vitamin D3] 50 mcg (2,000 unit) tablet 1 tab PO DAILY RF: 0 ondansetron 4 mg tablet,disintegrating 4 mg PO Q8H PRN (Reason: nausea and vomiting) Qty: 20 RF: 0 docusate sodium [Colace] 100 mg capsule 100 mg PO DAILY Qty: 30 RF: 6 senna 8.6 mg capsule 17.2 mg PO BEDTIME Qty: 60 RF: 4 simethicone [Gas Relief (simethicone)] 180 mg capsule 180 mg PO .Q.i.d. Qty: 120 RF: 4 omeprazole 20 mg capsule,delayed release(DR/EC) 20 mg PO DAILY Qty: 30 RF: 6 Referrals: Vasquez Pena MD [Physician] - 2 days
[2020-12-07] MEDS: 0.9 % Sodium Chloride 1,000 ML 999 ML IVCONT (10:18)
[2020-12-07 10:22] LABS: MANUAL DIFF FLAG NO
[2020-12-07 10:28] LABS: Basophils Percent Auto 0.4 % (0-2); Eosinophils Absolute Auto 0.1 X10*3/uL (0.0-0.4); Eosinophils Percent Auto 1.3 % (0-4); Hemoglobin 13.7 g/dl (12.0-16.0); Imm Gran Abs Auto 0.03 X10*3/uL (0.00-0.03); Imm Gran Pct Auto 0.3 % (0.0-0.4); Lymphocytes Percent Auto 20.1 % (20-40); Mean Corpuscular HGB Conc 33.4 g/dl (31.0-35.0); Mean Corpuscular Hemoglobin 30.9 pg (27.0-33.0); Mean Corpuscular Volume 92.6 fL (80-98); Mean Platelet Volume 9.1 fL (9.4-12.3); Monocytes Absolute Auto 0.6 X10*3/uL (0.1-1.2); Monocytes Percent Auto 5.9 % (2-11); Neutrophils Absolute Auto 7.3 X10*3/uL (2.0-8.3); Platelet Count 245 X10*3/uL (160-400); Red Blood Count 4.43 X10*6/uL (4.20-5.50); Red Cell Distribution Width 13.1 % (11.0-16.0); White Blood Count 10.1 X10*3/uL (4.8-10.8)
--- NOTE | 2020-12-07 11:01 | PC.NURSE ---
pt to bathroom w steady gait, small amt of blood in toilet, informed
[2020-12-07 11:02] LABS: Alanine Aminotransferase 93 U/L (0-31); Albumin Level 4.3 g/dL (3.5-5.0); Alkaline Phosphatase 71 U/L (39-117); Anion Gap 13 (12-20); Aspartate Amino Transferase 56 U/L (5-31); Bilirubin Total 1.7 mg/dL (0.0-1.0); Blood Urea Nitrogen 11 mg/dL (9-16); Calcium 9.5 mg/dL (8.4-10.2); Carbon Dioxide 23 mmol/L (22-29); Chloride 105 mmol/L (96-108); Creatinine Clr Calc Pharmacy 88.7; Estimated Glomerular Filt Rate > 60; Glucose Random 94 mg/dL (60-115); Potassium 3.9 mmol/L (3.3-5.1); Sodium 137 mmol/L (135-145); Total Protein 6.7 g/dL (6.5-8.0)
[2020-12-07 11:33] LABS: INTERNATIONAL NORM RATIO 1.1 (0.9-1.1)
[2020-12-07 11:36] LABS: Partial Thromboplastin Time 36.7 SEC (24.1-38.0)
[2020-12-07 12:31] LABS: MANUAL DIFF FLAG NO
[2020-12-07 12:36] LABS: Basophils Absolute Auto 0.1 X10*3/uL (0.0-0.2); Basophils Percent Auto 0.5 % (0-2); Eosinophils Absolute Auto 0.1 X10*3/uL (0.0-0.4); Hemoglobin 13.1 g/dl (12.0-16.0); Imm Gran Abs Auto 0.03 X10*3/uL (0.00-0.03); Imm Gran Pct Auto 0.3 % (0.0-0.4); Lymphocytes Absolute Auto 2.5 X10*3/uL (1.2-4.9); Lymphocytes Percent Auto 24.8 % (20-40); Mean Corpuscular HGB Conc 33.6 g/dl (31.0-35.0); Mean Corpuscular Hemoglobin 31.4 pg (27.0-33.0); Mean Corpuscular Volume 93.5 fL (80-98); Monocytes Absolute Auto 0.6 X10*3/uL (0.1-1.2); Neutrophils Absolute Auto 6.8 X10*3/uL (2.0-8.3); Neutrophils Percent Auto 67.4 % (45-73); Platelet Count 242 X10*3/uL (160-400); Red Blood Count 4.17 X10*6/uL (4.20-5.50); White Blood Count 10.1 X10*3/uL (4.8-10.8)
[2020-12-07 13:51] VITALS: BP 124/81; PULSE 86; RESP 18; O2SAT 98
== END 2020-12-07 13:52 | disposition home or self-care (01) ==
PROVIDERS: Emergency Provider Emergency Medicine; PCP Nurse Practitioner Primary Care
DX: K62.5 Hemorrhage of anus and rectum (principal); F17.200 Nicotine dependence, unspecified, uncomplicated; F17.210 Nicotine dependence, cigarettes, uncomplicated; Z71.6 Tobacco abuse counseling; F12.90 Cannabis use, unspecified, uncomplicated; Z79.899 Other long term (current) drug therapy
CPT/HCPCS: 36415; 80053; 85025; 85610; 85730; 96360; 99282; 99284

== ENCOUNTER → 2020-12-13 10:50 | Outpatient (BNVA) | payer MEDICAID, SELFPAY | PROVIDERS: Visit Provider Physician Assistant | DX: M75.41 Impingement syndrome of right shoulder (principal) | CPT/HCPCS: 20610; 99202; J1040 ==

== ENCOUNTER → 2020-12-26 08:20 | Outpatient (BNVA) | payer MEDICAID, SELFPAY | PROVIDERS: Visit Provider Nurse Practitioner ==

== ENCOUNTER → 2021-01-07 08:20 | Outpatient (BNVA) | payer MEDICAID, SELFPAY | PROVIDERS: PCP Nurse Practitioner Primary Care; Visit Provider Nurse Practitioner ==

== ENCOUNTER 2021-01-15 09:57 | Outpatient (REF) | payer MEDICAID, SELFPAY ==
--- NOTE | 2021-01-15 10:00 | EMG_ITS ---
This is a 50-year-old woman with a history of right upper extremity pain, numbness, and tingling. PHYSICAL EXAMINATION: On examination, she is alert and oriented with normal intellectual functions. Cranial nerves II through XII are normal. Muscle tone and strength are normal in all 4 extremities. No Tinel or Phalen sign. IMPRESSION: Rule out cervical radiculopathy, rule out carpal tunnel syndrome. Nerve conduction EMG study: Normal electrodiagnostic study of the right upper extremity. No evidence of carpal tunnel syndrome or nerve entrapment. Normal EMG of the right C5-T1 innervated muscles. MD MOISÉS Hobson/LEANA / [id number]
== END 2021-01-15 09:58 | disposition home or self-care (01) ==
LOC: HO.NEURO 09:57
PROVIDERS: Visit Provider Nurse Practitioner Primary Care
DX: R20.0 Anesthesia of skin (principal); R25.3 Fasciculation
CPT/HCPCS: 95885; 95910

== ENCOUNTER → 2021-01-21 08:53 | Outpatient (BNVA) | payer MEDICAID, SELFPAY | PROVIDERS: PCP Nurse Practitioner Primary Care; Referring Provider Nurse Practitioner Primary Care; Visit Provider Nurse Practitioner | DX: K21.9 Gastro-esophageal reflux disease without esophagitis (principal); K59.00 Constipation, unspecified; K64.9 Unspecified hemorrhoids; R14.0 Abdominal distension (gaseous) | CPT/HCPCS: 99212 ==

== ENCOUNTER 2021-03-10 08:08 | Emergency (ER) | payer MEDICAID, SELFPAY ==
--- NOTE | ~2021-03-10 | XR_ITS ---
EXAMINATION: XR SHOULDER, RIGHT CLINICAL INFORMATION: Right shoulder COMPARISON: 01/10/2020 TECHNIQUE: AP external rotation, Grashey, scapular Y, and axillary views of the right shoulder. FINDINGS: No fracture, dislocation or destructive lesion. Slight widening of the right AC joint with marginal osteophyte formation is stable. Ill-defined areas of sclerosis at the base of the bony glenoid are stable. No acute or new findings. XR/XR shoulder RT min 2V IMPRESSION: Degenerative change noted. No acute findings. No change 01/10/2020
--- NOTE | ~2021-03-10 | XR_ITS ---
EXAMINATION: XR CERVICAL SPINE CLINICAL INFORMATION: Radicular pain COMPARISON: None TECHNIQUE: 3 views of the cervical spine were obtained. FINDINGS: There is maintained lumbar lordosis. There is loss of cc 5-66, C6-C7 disc heights with moderate ventral spondylosis. Rest the disc heights, vertebral heights and alignment is normal. No visible acute fracture, dislocation or subluxation seen. There is minimal deviation of the neck to the left likely spasm. XR/XR cervical spine 3V IMPRESSION: Mild deviation of the neck to the left likely spasm or positional. The joint is changes C5-C6 and C6-C7 disc levels with moderate ventral spondylosis. No visible acute fracture or dislocation seen.
[2021-03-10 08:21] VITALS: BP 136/75; BP 140/79; PULSE 72; PULSE 76; RESP 17; TEMP 35.6; O2SAT 100; O2SAT 98; BMI 24.5
--- NOTE | 2021-03-10 09:10 | ED.EXTPRO ---
HPI - Extremity Problem General Chief complaint: Extremity Problem Stated complaint: right shoulder/arm pain Time Seen by Provider: 03/10/21 09:10 Source: patient Mode of arrival: ambulatory Limitations: language barrier History of Present Illness HPI Narrative: patient complaining of neck pain and right shoulder pain. She had an injection in the shoulder a few months ago. Since she had the injection the arm has increased pain. For 3 days now getting worse. MD Complaint: extremity pain Onset (ago): month(s) Pain Consistency: constant Location: right Quality: burning Relieving factors: nothing Exacerbating factors: nothing Associated symptoms: denies other symptoms Related Data Home Medications Medication Instructions Recorded Confirmed atorvastatin 20 mg tablet 1 tab PO BEDTIME 09/04/20 12/06/20 cholecalciferol (vitamin D3) 50 1 tab PO DAILY 09/04/20 12/06/20 mcg (2,000 unit) tablet (Vitamin D3) lidocaine 5 % topical patch 1 patch TOPICAL DAILY 09/04/20 12/06/20 nabumetone 500 mg tablet 1 tab PO BID 09/04/20 12/06/20 oxcarbazepine 600 mg tablet 1 tab PO BID 09/04/20 12/06/20 quetiapine 100 mg tablet 1 tab PO BEDTIME 09/04/20 12/06/20 quetiapine 25 mg tablet 1 tab PO QAM 09/04/20 12/06/20 sertraline 25 mg tablet 1 tab PO QAM 09/04/20 12/06/20 Previous Rx's Medication Instructions Recorded simethicone 180 mg capsule (Gas 180 mg PO .Q.i.d. #120 cap 04/08/20 Relief (simethicone)) omeprazole 20 mg capsule,delayed 20 mg PO DAILY #30 cap 08/06/20 release ondansetron 4 mg disintegrating 4 mg PO Q8H PRN #20 tab 12/06/20 tablet amoxicillin 875 mg-potassium 1 tab PO BID 30 Days #60 tab 12/26/20 clavulanate 125 mg tablet (Augmentin) hydrocortisone 2.5 % topical cream 1 appl [place] BID #30 g 12/26/20 with perineal applicator (Proctosol HC) linaclotide 72 mcg capsule 72 mcg PO QAM 30 Days #30 cap 01/21/21 (Linzess) cyclobenzaprine 10 mg tablet 10 mg PO TID #10 tab 01/24/22 naproxen 500 mg tablet (Naprosyn) 500 mg PO BID #20 tab 03/10/21 Allergies Allergy/AdvReac Type Severity Reaction Status Date / Time aspirin [ASA] Allergy Mild BRUISES Verified 01/21/21 09:03 Review of Systems Constitutional: Constitutional: Reports no additional constitutional complaints Eyes: Eyes: Reports no additional eye complaints ENT: Denies dizziness Cardiovascular: Cardiovascular: Reports no additional cardiovascular complaints Respiratory: Respiratory: Reports as per HPI Gastrointestinal: Gastrointestinal: Reports no additional gastrointestinal complaints Genitourinary: Genitourinary: Reports no additional female genitourinary complaints Musculoskeletal: Musculoskeletal: Reports no additional musculoskeletal complaints Integumentary/Breasts: Skin/Breast: Denies rash Neurologic: Reports system reviewed and no additional complaints, except as documented, Denies dizziness and Denies Sensory deficit (Neuro) Psychiatric: Psychiatric: Denies anxiety [facility] Past Medical History Medical History Anemia Chronic right shoulder pain Colon cancer Depression GERD (gastroesophageal reflux disease) Smoker Surgical History History of colon resection History of dilation and curettage History of excision of lesion History of exploratory laparotomy Hx of section Hx of cholecystectomy Hx of colonoscopy Hx of foot surgery Hx of hysterectomy Family History Family History Father FH: prostate cancer Paternal Aunt Breast cancer Social History Social History Household Members: Spouse Are you a primary director of home care hospice to a significant other at home: No Do you presently have visiting nurse or other home services: No Alcohol intake: never Patient Tobacco Use Status: Current everyday Tobacco user Tobacco use type: Cigarette Cigarette Packs Per Day: 0.5 Cigarettes Per Day: 10.0 Years Smoked: ~30 Substance Use Type: Marijuana Advance Directives: No Advance Directives Information Provided: No Patient : No Physical Exam Vital Signs: Vital Signs: Last Vital Signs Temp 96.0 F L 03/10/21 08:21 Pulse 72 03/10/21 08:21 Resp 17 03/10/21 08:21 BP 140/79 H 03/10/21 08:21 Pulse Ox 98 03/10/21 08:21 BMI result Body Mass Index 24.5 Const: Other: anxious and tearful with pain out of proportion to physical findings General: healthy appearing Nutritional Appearance: average body habitus Orientation/consciousness: oriented to person and patient oriented x3 Limitations: no limitations HENMT: Head: Yes normal to inspection Ears: external ears normal General nose exam: Normal external nose present Mouth: Normal oral and palatal mucosa present and oropharynx normal Throat: Yes posterior oropharynx normal Eyes: General: appearance normal, both eyes and all related structures Neck: Other: right trapezius tenderness with spasm Chest: Chest palpation & inspection: normal inspection of the chest Resp: Auscultation: clear to auscultation bilaterally Cardio: Jugular venous distension: no JVD Rate: regular rate Rhythm: regular rhythm Heart sounds: S1 normal heart sound present and S2 normal heart sound present GI: Inspection: Yes normal to inspection Palpation (GI): Soft to palpation, nontender and No hepatosplenomegaly present Auscultation: normal bowel sounds : General: Yes no CVA tenderness Back/Spine/Pelvis: Back: no CVA tenderness Skin: General skin exam: no rashes or lesions noted Neuro: General: oriented to person and patient oriented x3 Cranial nerves: Yes CN's II-XII intact bilaterally Motor exam (neuro): 5/5 motor strength present throughout Sensory Exam: No Sensory deficit (Neuro) Extrem: General: Yes normal to inspection Psych: Other: anxious and tearful Course Reevaluation(s) Reevaluation #1: patient with full range of motion of wrist, elbow and shoulder without acute pain, Patient with right trapezium spasm, I feel based on my history and physical this is a cervical radiculopathy and will treat with NSAIDS and flexeril with follow up Time: 11:44 MDM - Extremity (Nontraumatic) Imaging Data right shoulder: Radiologist's impression: FINDINGS: No fracture, dislocation or destructive lesion. Slight widening of the right AC joint with marginal osteophyte formation is stable. Ill-defined areas of sclerosis at the base of the bony glenoid are stable. No acute or new findings.? XR/XR shoulder RT min 2V IMPRESSION: Degenerative change noted. No acute findings. No change 01/10/2020 cervical spine: Radiologist's impression: FINDINGS: There is maintained lumbar lordosis. There is loss of cc 5-66, C6-C7 disc heights with moderate ventral spondylosis. Rest the disc heights, vertebral heights and alignment is normal. No visible acute fracture, dislocation or subluxation seen. There is minimal deviation of the neck to the left likely spasm. XR/XR cervical spine 3V IMPRESSION: Mild deviation of the neck to the left likely spasm or positional. ? The joint is changes C5-C6 and C6-C7 disc levels with moderate ventral spondylosis. No visible acute fracture or dislocation seen. ? Discharge Plan Discharge Clinical Impression: Cervical radiculopathy Patient Disposition: Home, Self-Care Instructions: Cervical Radiculopathy (ED), Chronic Neck Pain (DC) Prescriptions: New cyclobenzaprine 10 mg tablet 10 mg PO TID Qty: 10 RF: 0 naproxen [Naprosyn] 500 mg tablet 500 mg PO BID Qty: 20 RF: 0 No Action quetiapine 25 mg tablet 1 tab PO QAM RF: 0 atorvastatin 20 mg tablet 1 tab PO BEDTIME RF: 0 quetiapine 100 mg tablet 1 tab PO BEDTIME RF: 0 lidocaine 5 % adhesive patch,medicated 1 patch topical DAILY RF: 0 sertraline 25 mg tablet 1 tab PO QAM RF: 0 oxcarbazepine 600 mg tablet 1 tab PO BID RF: 0 nabumetone 500 mg tablet 1 tab PO BID RF: 0 cholecalciferol (vitamin D3) [Vitamin D3] 50 mcg (2,000 unit) tablet 1 tab PO DAILY RF: 0 ondansetron 4 mg tablet,disintegrating 4 mg PO Q8H PRN (Reason: nausea and vomiting) Qty: 20 RF: 0 simethicone [Gas Relief (simethicone)] 180 mg capsule 180 mg PO .Q.i.d. Qty: 120 RF: 4 omeprazole 20 mg capsule,delayed release(DR/EC) 20 mg PO DAILY Qty: 30 RF: 6 amoxicillin-pot clavulanate [Augmentin] 875-125 mg tablet 1 tab PO BID 30 Days Qty: 60 RF: 3 hydrocortisone [Proctosol HC] 2.5 % cream with perineal applicator 1 appl [place] BID Qty: 30 RF: 3 Linzess 72 mcg capsule 72 mcg PO QAM 30 Days Qty: 30 RF: 6 Referrals: Mirian Altamirano, CUSTOMER SUPPORT SPECIALIST [Primary Care Provider] - 1 week
[2021-03-10] MEDS: Cyclobenzaprine HCl 10 MG TABLET PO (09:41)
[2021-03-10] MEDS: Ketorolac Tromethamine 60 MG/2 ML VIAL IM (09:42)
== END 2021-03-10 12:47 | disposition home or self-care (01) ==
PROVIDERS: Emergency Provider Emergency Medicine; PCP Nurse Practitioner Primary Care
DX: M54.12 Radiculopathy, cervical region (principal); M54.2 Cervicalgia; F17.200 Nicotine dependence, unspecified, uncomplicated
CPT/HCPCS: 72040; 73030; 96372; 99283; 99284; J1885

== ENCOUNTER → 2021-04-04 08:39 | Outpatient (BNVA) | payer MEDICAID, SELFPAY | PROVIDERS: PCP Nurse Practitioner Primary Care; Referring Provider Nurse Practitioner Primary Care; Visit Provider Nurse Practitioner | DX: M75.41 Impingement syndrome of right shoulder (principal); K59.00 Constipation, unspecified; K21.9 Gastro-esophageal reflux disease without esophagitis; R14.0 Abdominal distension (gaseous) | CPT/HCPCS: 99212 ==

== ENCOUNTER 2021-04-10 08:24 | Outpatient (REF) | payer MEDICAID, SELFPAY ==
--- NOTE | ~2021-04-10 | MM_ITS ---
EXAMINATION: MM SCREENING DIGITAL BREAST TOMOSYNTHESIS, BILATERAL CLINICAL INFORMATION: Screening. Asymptomatic. The lifetime risk of breast cancer based on the Tyrer-Cuzick Model is 8.8%. COMPARISON: Mammography: March 16, 2020 and studies dating back to July 07, 2013 TECHNIQUE: Digital breast tomosynthesis is performed in both the craniocaudal and mediolateral oblique views along with computer-aided detection (CAD). Synthesized 2D images are generated from the tomosynthesis. FINDINGS: The breasts are heterogeneously dense, which may obscure small masses (ACR BI-RADS breast composition Category c). There are no significant masses, abnormal calcifications, or other abnormalities. MM/MM tomosynthesis screening BI IMPRESSION: There are no significant changes from prior study. ASSESSMENT: BI-RADS 1: Negative RECOMMENDATION: Routine annual mammography screening. This patient's information was entered into a reminder system with a target due date for their next mammogram.
== END 2021-04-10 08:25 | disposition home or self-care (01) ==
LOC: HO.MAMMO 08:24
PROVIDERS: PCP Nurse Practitioner Primary Care; Visit Provider Nurse Practitioner Primary Care
DX: Z12.31 Encounter for screening mammogram for malignant neoplasm of breast (principal)
CPT/HCPCS: 77063; 77067

== ENCOUNTER → 2021-05-16 12:13 | Outpatient (BNVA) | payer MEDICAID, SELFPAY | PROVIDERS: PCP Nurse Practitioner Primary Care; Visit Provider Physician Assistant | DX: M75.41 Impingement syndrome of right shoulder (principal) | CPT/HCPCS: 20610; 99212; J1040 ==

== ENCOUNTER → 2021-06-09 09:22 | Outpatient (BNVA) | payer MEDICAID, SELFPAY | PROVIDERS: Visit Provider Obstetrics & Gynecology | DX: Z01.419 Encounter for gynecological examination (general) (routine) without abnormal findings (principal) ==

== ENCOUNTER → 2021-07-04 08:45 | Outpatient (BNVA) | payer MEDICAID, SELFPAY | PROVIDERS: Referring Provider Nurse Practitioner Primary Care; Visit Provider Nurse Practitioner | DX: K59.00 Constipation, unspecified (principal); K21.9 Gastro-esophageal reflux disease without esophagitis; C18.9 Malignant neoplasm of colon, unspecified | CPT/HCPCS: 99212 ==

== ENCOUNTER 2021-07-07 10:47 | Outpatient (REF) | payer MEDICAID, SELFPAY ==
--- NOTE | ~2021-07-07 | US_ITS ---
EXAMINATION: US PELVIS CLINICAL INFORMATION: Adnexal fullness. Undocumented last menstrual period. COMPARISON: CT abdomen/pelvis dated from 12/06/2020. TECHNIQUE: Ultrasound of the pelvis is performed using both transabdominal and transvaginal transducers along with Doppler. Transvaginal imaging is performed due to inadequate visualization transabdominally. FINDINGS: Hysterectomy. The left ovary measures 3.2 x 2.0 x 2.1 cm for a volume of 7 mL demonstrating preserved flow at the moment of this examination. There is a 1.3 x 1.3 x 1.5 cm simple anechoic cyst in the left ovary which is almost certainly benign and for which no imaging follow-up is recommended. The right ovary measures 2.4 x 1.6 x 1.9 cm for a volume of 4 mL demonstrating preserved flow at the moment of this examination. There are 2 intraovarian observations in the right ovary as follow: A 1.1 x 0.8 x 0.9 cm lesion with thickened collapsed george and peripheral ring of fire, likely representing a collapsed corpus luteal cyst for which no imaging follow-up is recommended. A smaller 0.8 x 0.6 x 0.6 cm indeterminate cystic appearing lesion with low level internal echoes. There is a 1.7 x 1.1 x 1.8 cm anechoic avascular cyst with imperceptible george in the area of the right adnexa. No free fluid. US/US pelvic and transvaginal IMPRESSION: 1. Hysterectomy. 2. Nonspecific 0.8 cm cystic appearing right ovarian lesion with internal low-level echoes, could represent an endometrioma or hemorrhagic cyst. A follow-up ultrasound in 6-12 weeks is recommended. 3. A 1.8 cm anechoic simple appearing cyst in the right adnexa could represent a paraovarian cyst. These do not demonstrate worrisome features.
== END 2021-07-07 10:48 | disposition home or self-care (01) ==
LOC: HO.US 10:47
PROVIDERS: Visit Provider Obstetrics & Gynecology
DX: N94.9 Unspecified condition associated with female genital organs and menstrual cycle (principal)
CPT/HCPCS: 76830; 76856

== ENCOUNTER 2021-07-21 10:33 | Outpatient (REF) | payer MEDICAID, SELFPAY ==
[2021-07-22 08:46] LABS: CA 125 New Method 7 U/mL (<35); CA-125 7 U/mL (<35)
== END 2021-07-21 10:34 | disposition home or self-care (01) ==
LOC: HO.LAB 10:33
PROVIDERS: PCP Nurse Practitioner Primary Care; Visit Provider Obstetrics & Gynecology
DX: N83.299 Other ovarian cyst, unspecified side (principal)
CPT/HCPCS: 36415; 86304; 99212

== ENCOUNTER 2021-08-07 09:00 | Outpatient (RCR) | payer MEDICAID, SELFPAY ==
--- NOTE | 2021-06-27 12:02 | MHC.PT.EP ---
[facility] [place] Office [place] Office [place] Office [address] [phone] F: [phone] F: [phone] F: [phone] F: [phone] Physical Therapy Plan of Care Date of Evaluation: Date of Surgery: Diagnosis: Rt SH IMPINGEMENT Assessment: 51 YO FEMALE REF TO PT FOR Rt SH IMPINGEMENT W INTERM SXS INTO Rt ELB AND WRIST. Pt IS Rt HAND DOMINANT-> OBJECTIVE FINDINGS: DECR POSTURAL AWARENESS, WEAKNESS IN Rt POST RC/ SCAP MM, LIMITED ROM Rt SH, (-) INSTABILITY AT CURRENT, MARGINAL SPUR Rt AC Jt, AND PAIN IN Rt ANT GH/ POST RC. FUNCTIONAL DEFICITS INCLUDE DECR ADLs REQ IR POSTWERIORLY- HOOKING BRA, LIFTING/ CARRYING, REACHING. Pt WOULD BENEFIT FROM PT TO ADDRESS THE ABOVE FINDINGS, PAIN MGMT, AND DEV A HEP/ SELF-SX MGMT PROGRAM. Frequency and Duration: The patient will be seen 2 x WK x 5 WKS Short Term Goals: *Pt INDEP W SELF CORRECT POSTURE AND ADL BODY MECH IN 2 WKS *Pt'S Rt SH PAIN DECR TO 2-3/10 IN 2 WKS *Pt DEMON WFL / FULL AROM Rt SH IN 2 WKS Chcf Goals: *Pt INDEP W PROGR HEP AND SELF-SX MGMT TECHN IN 5 WKS *Pt resume reg adlSAS EVIDENT W IMPROVED SPADI SCORE BY 8-10 POINTS (102/130 AT EVAL IN 5 WKS *(-) Rt SH NEER'SIMPINGEMENT SIGN IN 5 WKS *WFL STRENGTH IN Rt SH GIRDLE IN 5 WKS Treatment Plan: Modalities to reduce pain, spasms and effusion. Manual therapy to restore motion and function. Therapeutic exercise to improve strength and flexibility. Neuromuscular re-education for posture and balance. Therapeutic activities to return to functional activities of daily living. Electronically signed by: Mariah Lanier,PT Please sign and return to therapist. Thank you for your referral.
--- NOTE | 2021-09-03 08:39 | MHC.PT.DC ---
[facility] [place] [facility] [place] [facility] [place] [facility] [address] Mary Oswald [address] [phone] F: [phone] F: [phone] F: [phone] F: [phone] Physical Therapy Discharge Report Diagnosis: Rt SH IMPINGEMENT Date of Surgery: Date of Evaluation: 06/27/21 Date of Discharge: 09/03/21 Treatments to Date: 8 Cancellations to Date: 3 No Shows to Date: 3 Discharge Status: Improved Function Visit Non-compliance Discharge Summary: Pt WAS PROGRESSING WELL IN PT, SHE HAS A THOROUGH HEP TO ADDRESS SH MECHANICS- Pt DID NOT ATTEND LAST FEW APPTS, DESPITE TEXT REMINDERS- SHE DID NOT MEET HER PT GOALS AT THIS TIME. Electronically signed by: Mariah Lanier,PT Please sign and return to therapist. Thank you for your referral.
== END 2021-09-03 08:38 | disposition home or self-care (01) ==
LOC: HO.PT 09:00
PROVIDERS: PCP Nurse Practitioner Primary Care; Visit Provider Physician Assistant
DX: M75.41 Impingement syndrome of right shoulder (principal)
CPT/HCPCS: 97110; 97140; 97162

== ENCOUNTER 2021-09-24 10:10 | Emergency (ER) | payer MEDICAID, SELFPAY ==
--- NOTE | ~2021-09-24 | CT_ITS ---
EXAMINATION: CT ABDOMEN AND PELVIS WITH CONTRAST CLINICAL INFORMATION: Right upper quadrant tenderness, nausea and vomiting. COMPARISON: CT abdomen pelvis 12/06/2020 TECHNIQUE: Multidetector volumetric images were obtained from the superior aspect of the liver through the pubic symphysis following administration 85 mL of Omnipaque 350 intravenous contrast. Sagittal and coronal reformatted images were obtained on the technologist's workstation. Oral contrast: No This CT examination was performed using dose optimization techniques as appropriate, variously including the following: *Automated exposure control *Adjustment of mA and/or kV according to patient size (this includes techniques or standardized protocols for targeted exams where dose is matched to indication/reason for exam; i.e. extremities or head) *Use of iterative reconstruction technique DLP: 485 mGy-cm FINDINGS: LUNG BASES: Heart size is normal. The lung bases are clear. There is a small hiatal hernia. LIVER, GALLBLADDER, AND BILIARY TREE: The liver is normal in size, shape, and attenuation. A small 9 mm hypodense lesion is seen left hepatic lobe, probable cyst There is mild prominence of intrahepatic ducts.. The gallbladder has been surgically removed. PANCREAS: Unremarkable. SPLEEN: Unremarkable. ADRENAL GLANDS: Unremarkable. KIDNEYS AND URETERS: The kidneys are normal in size, shape, and attenuation. No hydronephrosis, hydroureter, or calculi seen. No perinephric stranding. There is a 1 cm cyst upper pole left kidney. BLADDER: Unremarkable. GASTROINTESTINAL TRACT: There is scattered moderate stool and gas seen throughout the colon without significant distention. The small bowel loops are normal caliber. Appendix is nonvisualized ABDOMINAL WALL: No significant hernia is appreciated. LYMPH NODES: Normal. VASCULAR: Atherosclerotic changes of abdominal aorta without aneurysmal dilatation. PELVIC VISCERA: There is a trial lobe cystic structure in the right adnexa likely a ovarian cyst this cyst measuring approximately 4 cm in maximum dimension. The left adnexa is unremarkable. No free fluid. The uterus is retroverted. Removed OSSEOUS STRUCTURES: Mild degenerative disc changes with vacuum disc phenomena L3 4-4 and L4-L5 disc levels is noted. CT/CT abdomen pelvis w con IMPRESSION: Pneumobilia most likely status post cholecystectomy. Likely small cyst left hepatic lobe. Moderate constipation without obstruction. Appendix is not visualized with certainty. Bilateral renal cysts Small hiatal hernia. Fleischner guidelines were followed.
[2021-09-24 10:20] VITALS: BP 138/71; PULSE 56; RESP 18; TEMP 36.8; O2SAT 99; BMI 26.4
--- NOTE | 2021-09-24 10:27 | ED_ITS ---
HPI - Abdominal Pain General Chief Complaint: Abdominal Pain Stated Complaint: epigastric pain Time Seen by Provider: 09/24/21 10:20 Source: patient and EMS Mode of arrival: EMS History of Present Illness HPI narrative: 51-year-old female with past medical history of GERD, colon CA, constipation, SBO, anemia, depression, s/p cholecystectomy and colon resection, BIBA c/o acute epigastric pain starting around 08:30 with associated nausea and vomiting. Admits to similar symptoms in the past. Denies fever, chills, diarrhea/constipation, dysuria/hematuria, chest pain, shortness of breath MD elicited complaint: abdominal pain Onset (ago): hour(s) Related Data Home Medications Medication Instructions Recorded Confirmed atorvastatin 20 mg tablet 1 tab PO BEDTIME 09/04/20 12/06/20 cholecalciferol (vitamin D3) 50 1 tab PO DAILY 09/04/20 12/06/20 mcg (2,000 unit) tablet (Vitamin D3) lidocaine 5 % topical patch 1 patch topical DAILY 09/04/20 12/06/20 nabumetone 500 mg tablet 1 tab PO BID 09/04/20 12/06/20 oxcarbazepine 600 mg tablet 1 tab PO BID 09/04/20 12/06/20 quetiapine 100 mg tablet 1 tab PO BEDTIME 09/04/20 12/06/20 quetiapine 25 mg tablet 1 tab PO QAM 09/04/20 12/06/20 sertraline 25 mg tablet 1 tab PO QAM 09/04/20 12/06/20 Previous Rx's Medication Instructions Recorded simethicone 180 mg capsule (Gas 180 mg PO .Q.i.d. #120 caps 04/08/20 Relief (simethicone)) ondansetron 4 mg disintegrating 4 mg PO Q8H PRN nausea and 12/06/20 tablet vomiting #20 tabs cyclobenzaprine 10 mg tablet 10 mg PO TID #10 tabs 03/10/21 naproxen 500 mg tablet (Naprosyn) 500 mg PO BID #20 tabs 03/10/21 hydrocortisone 2.5 % topical cream 1 appl MS BID hemorrhoids #30 grams 07/04/21 with perineal applicator (Proctosol HC) linaclotide 72 mcg capsule 72 mcg PO QAM 30 days #30 caps 07/04/21 (Linzess) omeprazole 20 mg capsule,delayed 20 mg PO DAILY #30 caps 07/04/21 release Allergies Allergy/AdvReac Type Severity Reaction Status Date / Time aspirin [ASA] Allergy Mild BRUISES Verified 07/04/21 09:02 Review of Systems Review of Systems Constitutional: No Fever, No Chills, No Night Sweats, No Fatigue, No Malaise ENT/Mouth: No Hearing loss, No Ear Pain, No Nasal Congestion, No Hoarseness, No sore throat, No Rhinorrhea, No Swallowing Difficulty Eyes: No Eye Pain, No Swelling, No Redness, No Vision Changes Cardiovascular: No Chest Pain, No SOB, No Dyspnea on Exertion, No Orthopnea, No Edema, No Palpitations Respiratory: No Cough, No Sputum, No Dyspnea Gastrointestinal: + Nausea, +Vomiting, No Diarrhea, No Constipation, + Abdominal pain Genitourinary: No Dysuria, No Urinary Frequency, No Hematuria, No Urinary Incontinence/retention, No Flank Pain Musculoskeletal: No joint pain, No Myalgias, No Joint Swelling Skin: No Skin Lesions, No rash Neuro: No Weakness, No Numbness, No Dizziness, No Headache Yes all other systems are reviewed and are negative Constitutional: Reports as per [facility] Past Medical History Attestation statement: The following information was validated with the patient. Medical History Anemia Chronic right shoulder pain Colon cancer Colon cancer screening Depression GERD (gastroesophageal reflux disease) Smoker Surgical History History of colon resection History of dilation and curettage History of excision of lesion History of exploratory laparotomy Hx of section Hx of cholecystectomy Hx of colonoscopy Hx of foot surgery Hx of hysterectomy Family History Family History Father FH: prostate cancer Paternal Aunt Breast cancer Social History Social History Household Members: Spouse Are you a primary health care consultant to a significant other at home: No Do you presently have visiting nurse or other home services: No Alcohol intake: never Patient Tobacco Use Status: Current everyday Tobacco user Tobacco use type: Cigarette Cigarette Packs Per Day: 0.5 Cigarettes Per Day: 10.0 Years Smoked: ~30 Substance Use Type: Marijuana Advance Directives: No Advance Directives Information Provided: No Physical Exam ED Vital Signs: Vital Signs - 24 hr 09/24/21 10:20 09/24/21 10:46 09/24/21 10:54 Temperature 98.3 F 97.5 F Pulse Rate 56 100 Respiratory Rate 18 15 Blood Pressure 138/71 135/79 Pulse Oximetry 99 100 Oxygen Delivery Method Room Air Room Air 09/24/21 13:10 09/24/21 14:30 Temperature 97.9 F Pulse Rate 61 60 Respiratory Rate 13 12 Blood Pressure 113/61 104/52 L Pulse Oximetry 100 98 Oxygen Delivery Method Room Air Room Air BMI result Body Mass Index 26.4 Const General: cooperative, healthy appearing and no acute distress Orientation/consciousness: patient oriented x3 Limitations: no limitations HENMT Head: Yes normal to inspection and Yes atraumatic Ears: hearing grossly normal bilaterally General nose exam: Normal external nose present Face and sinus: Yes normal facial exam Eyes General: appearance normal, both eyes and all related structures EOM: EOMs intact bilaterally Neck Neck: Yes normal visual inspection and Yes no meningeal signs Resp Effort & Inspection: normal respiratory effort and no respiratory distress Auscultation: clear to auscultation bilaterally Cardio Rate: regular rate Heart sounds: S1 normal heart sound present and S2 normal heart sound present GI Inspection: Yes normal to inspection Palpation (GI): Soft to palpation, Tenderness to palpation present (GI) in the epigastrum, in the LLQ and in the RLQ; not suprapubicly, Colin's sign negative and with no rebound tenderness, no guarding and not rigid General: Yes CVA tenderness bilateral Back/Spine/Pelvis Back: CVA tenderness Skin Rashes: no rashes Wounds: no wounds Neuro General: patient oriented x3, tone normal and no meningeal signs Gait exam (Neuro): Normal gait present Extrem General: Yes normal to inspection Course Course Course Narrative: -mild leukocytosis of 10.9. T bili chronically elevated. AST/ALT chronically elevated -lipase mildly elevated. UA negative CT abdomen pelvis w con IMPRESSION: Pneumobilia most likely status post cholecystectomy. Likely small cyst left hepatic lobe. ? Moderate constipation without obstruction. Appendix is not visualized with certainty. ? Bilateral renal cysts ? Small hiatal hernia. ? Fleischner guidelines were followed. >> on re-evaluation patient reports symptomatic improvement, abdomen is soft and nontender, is tolerating p.o. Results discussed with natural gas treating unit operator including worrisome signs and symptoms and strict return precautions MDM - Abdominal Pain MDM Narrative Medical decision making narrative: 51-year-old female with past medical history of GERD, colon CA, constipation, SBO, anemia, depression, s/p cholecystectomy and colon resection, BIBA c/o acute epigastric pain starting around 08:30 with associated nausea and vomiting. On exam vital signs stable, NAD, appears in pain, nontoxic appearing, abdomen is soft with epigastric/RLQ & LLQ for tenderness to palpation, bilateral CVA tenderness noted. No rebound or guarding. Concern for pancreatitis vs GERD/PUD vs appendicitis/diverticulitis vs SBO. Lower suspicion for ovarian pathology or renal stone/pyelo Plan: Labs, UA, CT abdomen/pelvis, IVF, pain management/antiemetics, re- evaluate Differential Diagnosis Differential diagnosis: Likely abdominal pain, acute appendicitis, constipation, diverticulitis, gastritis, pancreatitis, peptic ulcer disease and small bowel obstruction Medical Records Attestation: I reviewed the patient's medical records. Lab Data Attestation: I reviewed the patient's lab results. Result diagrams: 09/24/21 10:44 09/24/21 10:44 Labs: Lab Results 09/24/21 09/24/21 09/24/21 Range/Units 10:39 10:44 10:44 WBC 10.9 H (4.8-10.8) X10*3/uL RBC 4.70 (4.20-5.50) X10*6/uL Hgb 14.8 (12.0-16.0) g/dl Hct 42.8 (37.0-47.0) % MCV 91.1 (80.0-98.0) fL MCH 31.5 (27.0-33.0) pg MCHC 34.6 (31.0-35.0) g/dl RDW 13.1 (11.0-16.0) % Plt Count 338 (160-400) X10*3/uL MPV 9.0 L (9.4-12.3) fL Immature Gran % (Auto) 0.8 H (0.0-0.4) % Neut % (Auto) 64.5 (45-73) % Lymph % (Auto) 27.0 (20-40) % [place] % (Auto) 5.8 (2-11) % Eos % (Auto) 1.4 (0-4) % Baso % (Auto) 0.5 (0-2) % Lymph # (Auto) 3.0 (1.2-4.9) X10*3/uL [place] # (Auto) 0.6 (0.1-1.2) X10*3/uL Eos # (Auto) 0.2 (0.0-0.4) X10*3/uL Baso # (Auto) 0.1 (0.0-0.2) X10*3/uL Abs Immat Gran (auto) 0.09 H (0.00-0.03) X10*3/uL Absolute Neuts (auto) 7.1 (2.0-8.3) x10*3/uL Absolute Nucleated RBC 0.000 (0.0-0.012) X10*3/uL Nucleated RBC % (auto) 0.0 (0.0-0.2) /100WBC Sodium 138 (135-145) mmol/L Potassium 3.8 (3.3-5.1) mmol/L Chloride 106 (96-108) mmol/L Carbon Dioxide 21 L (22-29) mmol/L Anion Gap 15 (12-20) BUN 16 (9-16) mg/dL Creatinine 0.62 (0.5-1.4) mg/dL Estim Creat Clear Calc 100.7 Estimated GFR > 60 Random Glucose 123 H (60-115) mg/dL Calcium 9.3 (8.4-10.2) mg/dL Magnesium 1.9 (1.6-2.6) mg/dL Total Bilirubin 1.1 H (0.0-1.0) mg/dL Direct Bilirubin 0.4 (0.0-0.5) mg/dL AST 82 H (5-31) U/L ALT 45 H (0-31) U/L Alkaline Phosphatase 63 (39-117) U/L Troponin I High Sens (<3.5-17.0) ng/L Total Protein 7.0 (6.5-8.0) g/dL Albumin 4.3 (3.5-5.0) g/dL Lipase 130 H (8-78) U/L Urine Color Urine Appearance Urine pH (5.0-8.0) Ur Specific [place] (1.005-1.025) Urine Protein (NEG-TRACE) MG/DL Urine Glucose (UA) (NEG) MG/DL Urine Ketones (NEG) MG/DL Urine Blood (NEG) Urine Nitrite (NEG) Ur Leukocyte Esterase (NEG) COVID-19 ([facility]) Negative (Negative) COVID-19 Clin Com See Note 09/24/21 09/24/21 Range/Units 10:44 12:47 WBC (4.8-10.8) X10*3/uL RBC (4.20-5.50) X10*6/uL Hgb (12.0-16.0) g/dl Hct (37.0-47.0) % MCV (80.0-98.0) fL MCH (27.0-33.0) pg MCHC (31.0-35.0) g/dl RDW (11.0-16.0) % Plt Count (160-400) X10*3/uL MPV (9.4-12.3) fL Immature Gran % (Auto) (0.0-0.4) % Neut % (Auto) (45-73) % Lymph % (Auto) (20-40) % [place] % (Auto) (2-11) % Eos % (Auto) (0-4) % Baso % (Auto) (0-2) % Lymph # (Auto) (1.2-4.9) X10*3/uL [place] # (Auto) (0.1-1.2) X10*3/uL Eos # (Auto) (0.0-0.4) X10*3/uL Baso # (Auto) (0.0-0.2) X10*3/uL Abs Immat Gran (auto) (0.00-0.03) X10*3/uL Absolute Neuts (auto) (2.0-8.3) x10*3/uL Absolute Nucleated RBC (0.0-0.012) X10*3/uL Nucleated RBC % (auto) (0.0-0.2) /100WBC Sodium (135-145) mmol/L Potassium (3.3-5.1) mmol/L Chloride (96-108) mmol/L Carbon Dioxide (22-29) mmol/L Anion Gap (12-20) BUN (9-16) mg/dL Creatinine (0.5-1.4) mg/dL Estim Creat Clear Calc Estimated GFR Random Glucose (60-115) mg/dL Calcium (8.4-10.2) mg/dL Magnesium (1.6-2.6) mg/dL Total Bilirubin (0.0-1.0) mg/dL Direct Bilirubin (0.0-0.5) mg/dL AST (5-31) U/L ALT (0-31) U/L Alkaline Phosphatase (39-117) U/L Troponin I High Sens < 3.5 (<3.5-17.0) ng/L Total Protein (6.5-8.0) g/dL Albumin (3.5-5.0) g/dL Lipase (8-78) U/L Urine Color YELLOW Urine Appearance CLEAR Urine pH 6.5 (5.0-8.0) Ur Specific Lodge <= 1.005 (1.005-1.025) Urine Protein NEG (NEG-TRACE) MG/DL Urine Glucose (UA) NEG (NEG) MG/DL Urine Ketones NEG (NEG) MG/DL Urine Blood NEG (NEG) Urine Nitrite NEG (NEG) Ur Leukocyte Esterase NEG (NEG) COVID-19 ([facility]) (Negative) COVID-19 Clin Com Discharge Plan Discharge Clinical Impression: Abdominal pain, Nausea & vomiting Patient Disposition: Home, Self-Care Instructions: Acute Nausea and Vomiting (ED), Abdominal Pain (ED) Additional Instructions: Your blood work and CT scan were reassuring today in the emergency department. Stay hydrated at home. Practice a bland diet, avoid spicy foods, sweets, caffeine, chocolate. Follow up with her doctor. If symptoms persist or worsen, you are unable to eat or drink, fever, or unbearable pain return to the ED An an?lisis de steve y tomograf?a computarizada fueron tranquilizadores hoy en el departamento de emergencias. Mantente hidratado en casa. Practique yohana dieta blanda, evite comidas picantes, dulces, cafe?na, chocolate. Seguimiento con an m?dico. Si los s?ntomas persisten o empeoran, no puede comer ni beber, tiene fiebre o dolor insoportable, regrese al servicio de urgencias. Prescriptions: No Action quetiapine 25 mg tablet 1 tab PO QAM atorvastatin 20 mg tablet 1 tab PO BEDTIME quetiapine 100 mg tablet 1 tab PO BEDTIME lidocaine 5 % adhesive patch,medicated 1 patch topical DAILY sertraline 25 mg tablet 1 tab PO QAM oxcarbazepine 600 mg tablet 1 tab PO BID nabumetone 500 mg tablet 1 tab PO BID cholecalciferol (vitamin D3) [Vitamin D3] 50 mcg (2,000 unit) tablet 1 tab PO DAILY ondansetron 4 mg tablet,disintegrating 4 mg PO Q8H PRN (Reason: nausea and vomiting) Qty: 20 0RF cyclobenzaprine 10 mg tablet 10 mg PO TID Qty: 10 0RF naproxen [Naprosyn] 500 mg tablet 500 mg PO BID Qty: 20 0RF simethicone [Gas Relief (simethicone)] 180 mg capsule 180 mg PO .Q.i.d. Qty: 120 4RF hydrocortisone [Proctosol HC] 2.5 % cream with perineal applicator 1 appl MS BID Qty: 30 3RF Linzess 72 mcg capsule 72 mcg PO QAM 30 Days Qty: 30 6RF Rx Instructions: Stop Amitiza pt had bad s/e omeprazole 20 mg capsule,delayed release(DR/EC) 20 mg PO DAILY Qty: 30 6RF Referrals: Mirian Altamirano [facility] [Primary Care Provider] - 3 days Print Language: Japanese
--- NOTE | 2021-09-24 10:28 | ECG_ITS ---
Test Reason : chest pain Blood Pressure : / mmHG Vent. Rate : 047 BPM Atrial Rate : 047 BPM P-R Int : 142 ms QRS Dur : 082 ms QT Int : 452 ms P-R-T Axes : 061 025 -01 degrees QTc Int : 400 ms Sinus bradycardia Otherwise normal ECG When compared with ECG of 12-AUG-2015 13:18, Vent. rate has decreased BY 36 BPM Referred By: Anupama Vallecillo Electronically Signed By:CARMEN CANDELARIO
[2021-09-24 10:46] VITALS: PULSE 100; RESP 15; TEMP 36.4; O2SAT 100
[2021-09-24 10:50] LABS: MANUAL DIFF FLAG NO
[2021-09-24 10:54] VITALS: BP 135/79
[2021-09-24] MEDS: 0.9 % Sodium Chloride 1,000 ML 999 ML IV (10:56)
[2021-09-24] MEDS: Famotidine/PF 20 MG/2 ML VIAL IVPUSH (10:56)
[2021-09-24] MEDS: Morphine Sulfate 2 MG/ML CARTRIDGE IVPUSH (10:56)
[2021-09-24] MEDS: ondansetron HCL 4 MG/2 ML VIAL IVPUSH (10:56)
[2021-09-24 10:59] LABS: Basophils Absolute Auto 0.1 X10*3/uL (0.0-0.2); Basophils Percent Auto 0.5 % (0-2); Eosinophils Absolute Auto 0.2 X10*3/uL (0.0-0.4); Eosinophils Percent Auto 1.4 % (0-4); Hematocrit 42.8 % (37.0-47.0); Hemoglobin 14.8 g/dl (12.0-16.0); Imm Gran Abs Auto 0.09 X10*3/uL (0.00-0.03); Imm Gran Pct Auto 0.8 % (0.0-0.4); Mean Corpuscular HGB Conc 34.6 g/dl (31.0-35.0); Mean Corpuscular Hemoglobin 31.5 pg (27.0-33.0); Mean Corpuscular Volume 91.1 fL (80.0-98.0); Monocytes Absolute Auto 0.6 X10*3/uL (0.1-1.2); Monocytes Percent Auto 5.8 % (2-11); Neutrophils Absolute Auto 7.1 x10*3/uL (2.0-8.3); Neutrophils Percent Auto 64.5 % (45-73); Platelet Count 338 X10*3/uL (160-400); Red Cell Distribution Width 13.1 % (11.0-16.0); White Blood Count 10.9 X10*3/uL (4.8-10.8)
[2021-09-24 11:10] LABS: Alanine Aminotransferase 45 U/L (0-31); Albumin Level 4.3 g/dL (3.5-5.0); Alkaline Phosphatase 63 U/L (39-117); Anion Gap 15 (12-20); Aspartate Amino Transferase 82 U/L (5-31); Bilirubin Direct 0.4 mg/dL (0.0-0.5); Bilirubin Total 1.1 mg/dL (0.0-1.0); Blood Urea Nitrogen 16 mg/dL (9-16); Calcium 9.3 mg/dL (8.4-10.2); Carbon Dioxide 21 mmol/L (22-29); Chloride 106 mmol/L (96-108); Creatinine Clr Calc Pharmacy 100.7; Estimated Glomerular Filt Rate > 60; Glucose Random 123 mg/dL (60-115); Lipase 130 U/L (8-78); Magnesium 1.9 mg/dL (1.6-2.6); Potassium 3.8 mmol/L (3.3-5.1); Sodium 138 mmol/L (135-145)
[2021-09-24 11:13] LABS: Troponin-I High Sensitivity < 3.5 ng/L (<3.5-17.0)
[2021-09-24 11:22] LABS: COVID-19 Test Negative (Negative); IDNOW Serial# 16C4AD1C
[2021-09-24] MEDS: iohexoL 350 MG/ML 75 ML INFUS..BTL 85 ML IV (12:24)
[2021-09-24] MEDS: Metoclopramide HCl 10 MG/2 ML VIAL IVPUSH (12:41)
[2021-09-24 13:03] LABS: Appearance Urine CLEAR; Color Urine YELLOW; Glucose Urine UA NEG (NEG); Leukocyte Esterase Urine NEG (NEG); Nitrite Urine NEG (NEG); PH 6.5 (5.0-8.0); Specific Gravity - Urine <= 1.005 (1.005-1.025); Urine Blood NEG (NEG); Urine Ketones NEG (NEG); Urine Protein NEG (NEG-TRACE)
[2021-09-24 13:10] VITALS: BP 113/61; PULSE 61; RESP 13; O2SAT 100
[2021-09-24 14:30] VITALS: BP 104/52; PULSE 60; RESP 12; TEMP 36.6; O2SAT 98
== END 2021-09-24 15:31 | disposition home or self-care (01) ==
PROVIDERS: Physician Assistant; Emergency Provider Emergency Medicine Emergency Medical Services; PCP Nurse Practitioner Primary Care
DX: R10.13 Epigastric pain (principal); R11.2 Nausea with vomiting, unspecified; Z20.822 Contact with and (suspected) exposure to COVID-19; F17.210 Nicotine dependence, cigarettes, uncomplicated; F12.90 Cannabis use, unspecified, uncomplicated
CPT/HCPCS: 36415; 74177; 80048; 80076; 81003; 83690; 83735; 84484; 85025; 87635; 93005; 96361; 96374; 96375; 99284; J2270; J2405; J2765; Q9967

== ENCOUNTER → 2021-10-03 07:58 | Outpatient (BNVA) | payer MEDICAID, SELFPAY | PROVIDERS: PCP Nurse Practitioner Primary Care; Visit Provider Nurse Practitioner | DX: K59.00 Constipation, unspecified (principal); K21.9 Gastro-esophageal reflux disease without esophagitis | CPT/HCPCS: 99212 ==

== ENCOUNTER 2021-10-10 09:17 | Outpatient (REF) | payer MEDICAID, SELFPAY ==
--- NOTE | ~2021-10-10 | US_ITS ---
EXAMINATION: US PELVIS CLINICAL INFORMATION: Follow-up ovarian cyst COMPARISON: Previous CT of the abdomen and pelvis September 2021 and pelvic ultrasound June 2021 TECHNIQUE: Ultrasound of the pelvis is performed using both transabdominal and transvaginal transducers along with Doppler. Transvaginal imaging is performed due to inadequate visualization transabdominally. FINDINGS: The uterus has been removed. The left ovary is normal-appearing and measures 2.5 x 1.2 x 2.1 cm. The right ovary measures 3.6 x 2.2 x 3.2 cm. There are 2 complex right ovarian cyst measuring 2.1 x 1.8 x 1.9 cm and 1.7 x 1.4 x 1.4 cm. There is a 1.7 x 1.4 x 1.8 cm complex right paraovarian or adnexal cyst. There is no fluid in the pelvis. US/US pelvic and transvaginal IMPRESSION: Complex right ovarian and adnexal cysts largest measuring 2.1 x 1.8 x 1.9 cm. Normal-appearing left ovary.
== END 2021-10-10 09:18 | disposition home or self-care (01) ==
LOC: HO.US 09:17
PROVIDERS: Visit Provider Obstetrics & Gynecology
DX: N83.299 Other ovarian cyst, unspecified side (principal)
CPT/HCPCS: 76830; 76856

== ENCOUNTER 2021-11-04 10:24 | Outpatient (REF) | payer MEDICAID, SELFPAY ==
[2021-11-05 09:07] LABS: CA-125 5 U/mL (<35)
== END 2021-11-04 10:25 | disposition home or self-care (01) ==
LOC: HO.LAB 10:24
PROVIDERS: PCP Nurse Practitioner Primary Care; Visit Provider Obstetrics & Gynecology
DX: N83.291 Other ovarian cyst, right side (principal)
CPT/HCPCS: 36415; 86304; 99212

== ENCOUNTER 2021-11-17 12:01 | Emergency (ER) | payer MEDICAID, SELFPAY ==
--- NOTE | 2021-11-17 12:10 | ECG_ITS ---
Test Reason : chest pain Blood Pressure : / mmHG Vent. Rate : 058 BPM Atrial Rate : 058 BPM P-R Int : 142 ms QRS Dur : 078 ms QT Int : 416 ms P-R-T Axes : 065 023 006 degrees QTc Int : 408 ms Sinus bradycardia Low voltage QRS Nonspecific T wave abnormality Abnormal ECG When compared with ECG of 24-SEP-2021 10:28, Nonspecific T wave abnormality now evident in Anterior leads Referred By: Generic ED Physician Electronically Signed By:ISSAC AGUIRRE
[2021-11-17 12:14] VITALS: BP 138/68; PULSE 78; RESP 18; TEMP 36.8; O2SAT 98; BMI 25.7
== END 2021-11-17 14:15 | disposition left against medical advice (07) ==
PROVIDERS: Emergency Provider Emergency Medicine
DX: R07.9 Chest pain, unspecified (principal); R06.02 Shortness of breath
CPT/HCPCS: 93005; 99281; 99283

== ENCOUNTER 2021-11-27 07:53 | Outpatient (REF) | payer MEDICAID, SELFPAY ==
--- NOTE | ~2021-11-27 | MR_ITS ---
EXAMINATION: MRI PELVIS WITH AND WITHOUT CONTRAST CLINICAL INFORMATION: Other ovarian cyst. COMPARISON: Ultrasound 10/10/2021. CT 09/24/2021 TECHNIQUE: Multiple routine MRI sequences through the pelvis were obtained on a high-field 1.5 Nathalie MRI before and after the uneventful administration of 10 mL of Gadavist gadolinium-based IV contrast. FINDINGS: UTERUS: Uterus absent status post hysterectomy. CERVIX: Surgically absent. VAGINA: Normal; no mass seen. RIGHT OVARY: The normal-appearing right ovary measures 2.6 x 1.6 x 1.7 cm. Small likely physiologic cysts are present. The largest measures 1.4 cm in diameter. Each of these has some bright T1 signal precontrast suggesting internal blood products or proteinaceous material. No suspicious or concerning features seen. LEFT OVARY: There is a 2.4 x 2.4 x 2.6 cm complex cyst in the otherwise normal left ovary. This has T2 shading, with dark T2 signal dependently. There is bright T1 signal anteriorly/nondependently, consistent with internal blood products or proteinaceous material. No suspicious or concerning features seen. KIDNEYS: Two normally positioned kidneys are seen. No hydronephrosis. BLADDER: Urinary bladder normal. PELVIC FREE FLUID: No free fluid or ascites. LYMPH NODES: No pathologically enlarged lymph nodes. OSSEOUS STRUCTURES: No acute or suspicious osseous abnormalities. There is susceptibility artifact consistent with prior Pfannenstiel incision across the anterior pelvic wall. MR/MR pelvis wo/w con IMPRESSION: There are proteinaceous or hemorrhagic cysts in the ovaries bilaterally. The largest on the right measures 1.4 cm in greatest dimension. Previously there were 1.7 and 1.8 cm complex cysts in the right ovary that have either decreased in size or resolved. There is a new 2.6 cm proteinaceous or hemorrhagic cyst in the left ovary. No suspicious or concerning features seen in any of the findings in the bilateral ovaries suggest that further imaging follow-up is necessary.
== END 2021-11-27 07:54 | disposition home or self-care (01) ==
LOC: HO.MRI 07:53
PROVIDERS: Visit Provider Obstetrics & Gynecology
DX: N83.299 Other ovarian cyst, unspecified side (principal)
CPT/HCPCS: 72197; A9585

== ENCOUNTER 2021-12-07 11:01 | Emergency (ER) | payer MEDICAID, SELFPAY ==
--- NOTE | ~2021-12-07 | XR_ITS ---
EXAMINATION: XR CHEST CLINICAL INFORMATION: Shortness of breath with chills COMPARISON: February 22, 2012 TECHNIQUE: 2 views of the chest were obtained. FINDINGS: No significant abnormality is noted involving the heart, lungs, mediastinum, bony thorax or soft tissues. XR/XR chest 2V IMPRESSION: No acute disease.
[2021-12-07 11:02] VITALS: BP 154/90; PULSE 676; RESP 19; TEMP 36.6; O2SAT 100; BMI 23.1
--- NOTE | 2021-12-07 11:06 | ECG_ITS ---
Test Reason : SOB Blood Pressure : / mmHG Vent. Rate : 059 BPM Atrial Rate : 059 BPM P-R Int : 138 ms QRS Dur : 084 ms QT Int : 398 ms P-R-T Axes : 071 031 -03 degrees QTc Int : 394 ms Sinus bradycardia Nonspecific T wave abnormality Abnormal ECG When compared with ECG of 17-NOV-2021 12:27, No significant change was found Referred By: Generic ED Physician Electronically Signed By:ALEJANDRO RENTERIA MD
[2021-12-07 11:22] LABS: MANUAL DIFF FLAG NO
[2021-12-07 11:23] LABS: Basophils Absolute Auto 0.1 X10*3/uL (0.0-0.2); Basophils Percent Auto 0.7 % (0-2); Eosinophils Absolute Auto 0.4 X10*3/uL (0.0-0.4); Eosinophils Percent Auto 3.4 % (0-4); Hematocrit 44.1 % (37.0-47.0); Imm Gran Abs Auto 0.05 X10*3/uL (0.00-0.03); Imm Gran Pct Auto 0.5 % (0.0-0.4); Lymphocytes Percent Auto 38.8 % (20-40); Mean Corpuscular Hemoglobin 30.7 pg (27.0-33.0); Mean Corpuscular Volume 90.4 fL (80.0-98.0); Mean Platelet Volume 8.6 fL (9.4-12.3); Monocytes Absolute Auto 0.7 X10*3/uL (0.1-1.2); Neutrophils Absolute Auto 5.1 x10*3/uL (2.0-8.3); Neutrophils Percent Auto 49.6 % (45-73); Platelet Count 302 X10*3/uL (160-400); Red Blood Count 4.88 X10*6/uL (4.20-5.50); Red Cell Distribution Width 12.9 % (11.0-16.0); White Blood Count 10.4 X10*3/uL (4.8-10.8)
[2021-12-07 11:39] LABS: Anion Gap 18 (12-20); Blood Urea Nitrogen 21 mg/dL (9-16); Carbon Dioxide 21 mmol/L (22-29); Chloride 106 mmol/L (96-108); Creatinine Clr Calc Pharmacy 87.7; Estimated Glomerular Filt Rate > 60; Glucose Random 109 mg/dL (60-115); Potassium 3.7 mmol/L (3.3-5.1); Sodium 141 mmol/L (135-145)
[2021-12-07 11:48] LABS: B Type Natriuretic Peptide < 10 pg/mL (<100); Troponin-I High Sensitivity < 3.5 ng/L (<3.5-17.0)
[2021-12-07 11:55] LABS: COVID-19 Test Negative (Negative); IDNOW Serial# 16C4AD1C
== END 2021-12-07 16:35 | disposition left against medical advice (07) ==
PROVIDERS: Emergency Provider Emergency Medicine
DX: R06.02 Shortness of breath (principal); R05.9 Cough, unspecified; R07.89 Other chest pain; Z20.822 Contact with and (suspected) exposure to COVID-19; Z79.899 Other long term (current) drug therapy
CPT/HCPCS: 71046; 80048; 83880; 84484; 85025; 87635; 93005; 99283

== ENCOUNTER → 2021-12-16 07:52 | Outpatient (BNVA) | payer MEDICAID, SELFPAY | PROVIDERS: Visit Provider Obstetrics & Gynecology | DX: N83.299 Other ovarian cyst, unspecified side (principal) | CPT/HCPCS: 99212 ==

== ENCOUNTER 2021-12-27 09:27 | Emergency (ER) | payer MEDICAID, SELFPAY ==
--- NOTE | ~2021-12-27 | XR_ITS ---
EXAMINATION: XR CHEST CLINICAL INFORMATION: 51-year-old female with chest pain COMPARISON: 12/07/2021 TECHNIQUE: Frontal view of the chest was obtained. FINDINGS: No significant abnormality is noted involving the heart, lungs, mediastinum, bony thorax or soft tissues. XR/XR chest 1V IMPRESSION: Unremarkable examination without interval change.
[2021-12-27 09:33] VITALS: BP 144/75; PULSE 78; RESP 16; TEMP 35.8; O2SAT 96; BMI 27.3
--- NOTE | 2021-12-27 09:37 | ECG_ITS ---
Test Reason : CHEST PAIN Blood Pressure : / mmHG Vent. Rate : 076 BPM Atrial Rate : 076 BPM P-R Int : 152 ms QRS Dur : 080 ms QT Int : 392 ms P-R-T Axes : 064 012 008 degrees QTc Int : 441 ms Normal sinus rhythm Low voltage QRS Nonspecific ST abnormality Inferior leads Abnormal ECG When compared with ECG of 07-DEC-2021 11:06, Heart rate has increased Referred By: Yesy Corbett Electronically Signed By:ALEJANDRO RENTERIA MD
[2021-12-27 10:01] LABS: MANUAL DIFF FLAG NO
[2021-12-27 10:03] LABS: Basophils Absolute Auto 0.1 X10*3/uL (0.0-0.2); Basophils Percent Auto 0.7 % (0-2); Eosinophils Absolute Auto 0.2 X10*3/uL (0.0-0.4); Eosinophils Percent Auto 2.1 % (0-4); Hematocrit 41.3 % (37.0-47.0); Hemoglobin 14.3 g/dl (12.0-16.0); Imm Gran Abs Auto 0.06 X10*3/uL (0.00-0.03); Imm Gran Pct Auto 0.6 % (0.0-0.4); Lymphocytes Absolute Auto 2.6 X10*3/uL (1.2-4.9); Lymphocytes Percent Auto 27.4 % (20-40); Mean Corpuscular HGB Conc 34.6 g/dl (31.0-35.0); Mean Corpuscular Hemoglobin 31.4 pg (27.0-33.0); Mean Corpuscular Volume 90.6 fL (80.0-98.0); Mean Platelet Volume 8.6 fL (9.4-12.3); Monocytes Absolute Auto 0.6 X10*3/uL (0.1-1.2); Monocytes Percent Auto 6.5 % (2-11); Neutrophils Absolute Auto 5.9 x10*3/uL (2.0-8.3); Neutrophils Percent Auto 62.7 % (45-73); Platelet Count 310 X10*3/uL (160-400); Red Blood Count 4.56 X10*6/uL (4.20-5.50); Red Cell Distribution Width 13.1 % (11.0-16.0); White Blood Count 9.5 X10*3/uL (4.8-10.8)
[2021-12-27 10:16] LABS: COVID-19 Test Negative (Negative); IDNOW Serial# 16C4AD1C
[2021-12-27 10:17] LABS: Anion Gap 15 (12-20); Blood Urea Nitrogen 15 mg/dL (9-16); Calcium 9.3 mg/dL (8.4-10.2); Carbon Dioxide 19 mmol/L (22-29); Chloride 109 mmol/L (96-108); Creatinine Clr Calc Pharmacy 107.3; Estimated Glomerular Filt Rate > 60; Glucose Random 99 mg/dL (60-115); Potassium 3.8 mmol/L (3.3-5.1); Sodium 139 mmol/L (135-145)
[2021-12-27 10:24] LABS: Troponin-I High Sensitivity < 3.5 ng/L (<3.5-17.0)
--- NOTE | 2021-12-27 10:43 | ED_ITS ---
HPI - Chest Pain General Chief Complaint: Chest Pain Stated Complaint: high BP Time Seen by Provider: 12/27/21 10:43 Source: patient Mode of arrival: ambulatory Limitations: no limitations History of Present Illness HPI narrative: 51-year-old female with history of GERD, constipation, hemorrhoids, diverticulitis, ovarian cyst, colon cancer who presents to the ER for evaluation of sharp, nonradiating upper substernal chest pain that started at 5am today when she was laying down. She states the pain is sharp and constant but has improved significantly over the last few hours. She denies Any associated shortness of breath, diaphoresis, nausea. The pain does not radiate. It is worse with movement and palpation. When she touches her upper sternum there is tenderness. There are no overlying skin changes. She denies any fever or chills. No cardiac history. MD complaint: chest pain Onset (ago): hour(s) Timing of current episode: constant Prior episodes: No Onset: during rest Pain location: substernal Pain radiation: none Severity: moderate Quality: sharp Relieving factors: rest Exacerbating factors: palpation Treatment prior to arrival: none Risk Factors Coronary artery disease risk factors: none Thoracic aortic dissection risk factors: none Pulmonary embolism risk factors: malignancy Related Data On Oral Contraceptives: No Home Medications Medication Instructions Recorded Confirmed atorvastatin 20 mg tablet 1 tab PO BEDTIME 09/04/20 12/06/20 cholecalciferol (vitamin D3) 50 1 tab PO DAILY 09/04/20 12/06/20 mcg (2,000 unit) tablet (Vitamin D3) lidocaine 5 % topical patch 1 patch topical DAILY 09/04/20 12/06/20 nabumetone 500 mg tablet 1 tab PO BID 09/04/20 12/06/20 oxcarbazepine 600 mg tablet 1 tab PO BID 09/04/20 12/06/20 quetiapine 100 mg tablet 1 tab PO BEDTIME 09/04/20 12/06/20 quetiapine 25 mg tablet 1 tab PO QAM 09/04/20 12/06/20 sertraline 25 mg tablet 1 tab PO QAM 09/04/20 12/06/20 Previous Rx's Medication Instructions Recorded simethicone 180 mg capsule (Gas 180 mg PO .Q.i.d. #120 caps 04/08/20 Relief (simethicone)) ondansetron 4 mg disintegrating 4 mg PO Q8H PRN nausea and 12/06/20 tablet vomiting #20 tabs cyclobenzaprine 10 mg tablet 10 mg PO TID #10 tabs 03/10/21 naproxen 500 mg tablet (Naprosyn) 500 mg PO BID #20 tabs 03/10/21 hydrocortisone 2.5 % topical cream 1 appl [place] BID hemorrhoids #30 grams 07/04/21 with perineal applicator (Proctosol HC) linaclotide 72 mcg capsule 72 mcg PO QAM 30 days #30 caps 07/04/21 (Linzess) omeprazole 20 mg capsule,delayed 20 mg PO BID #60 caps 10/03/21 release Allergies Allergy/AdvReac Type Severity Reaction Status Date / Time aspirin [ASA] Allergy Mild BRUISES Verified 12/16/21 08:07 Review of Systems Review of Systems: Constitutional: No Fever, No Chills ENT/Mouth: No sore throat, No Rhinorrhea, No Swallowing Difficulty Cardiovascular: + Chest Pain, No SOB, No Orthopnea, No Edema Respiratory: No Cough, No Sputum, No Wheezing, No dyspnea Gastrointestinal: No Nausea, No Vomiting, No Diarrhea, No abdominal Pain Genitourinary: No Dysuria, No Urinary Frequency, No Hematuria Musculoskeletal: No joint pain, No Myalgias Skin: No Skin Lesions, No rash Neuro: No Weakness, No Numbness, No Dizziness, No Headache Psych: + Anxiety/Panic, No Depression Heme/Lymph: No Bruising, No Lymphadenopathy Endocrine: No Polyuria, No Polydipsia PMFSH Past Medical History Medical History Anemia Chronic right shoulder pain Colon cancer Colon cancer screening Depression GERD (gastroesophageal reflux disease) Smoker Surgical History History of colon resection History of dilation and curettage History of excision of lesion History of exploratory laparotomy Hx of section Hx of cholecystectomy Hx of colonoscopy Hx of foot surgery Hx of hysterectomy Family History Family History Father FH: prostate cancer Paternal Aunt Breast cancer Social History Social History Household Members: Spouse Are you a primary pediatric acute care unit nurse to a significant other at home: No Do you presently have visiting nurse or other home services: No Alcohol intake: never Patient Tobacco Use Status: Current everyday Tobacco user Tobacco use type: Cigarette Cigarette Packs Per Day: 0.5 Cigarettes Per Day: 10.0 Years Smoked: ~30 Smoked in Last 30 Days: Yes Use of substances other than those prescribed or required for medical reasons: No Substance Use Type: Marijuana Advance Directives: No Advance Directives Information Provided: No Physical Exam Vital Signs: Vital Signs: Last Vital Signs Temp 98.3 F 12/27/21 11:26 Pulse 67 12/27/21 11:26 Resp 13 12/27/21 11:26 BP 132/60 12/27/21 11:26 Pulse Ox 98 12/27/21 11:26 O2 Del Method 12/27/21 11:26 BMI result Body Mass Index 27.3 Appearance: Alert. Oriented X3. No acute distress. Eyes: Pupils equal, round and reactive to light. ENT: Pharynx normal. Neck: Normal inspection. Neck supple. CVS: Normal heart rate and rhythm. Pulses normal. Respiratory: No respiratory distress. Breath sounds normal. Mild anterior chest wall tenderness to the superior aspect of the manubrium. Abdomen: Soft and nontender. +BS x4 Skin: Skin warm and dry. Normal skin color. Normal skin turgor. No rashes. Extremities: No lower extremity edema. No calf swelling or tenderness. No erythema or changes in her skin. Neuro: Oriented X 3. No motor deficit. No sensory deficit. Course Course Course Narrative: 51-year-old female presents to the ER for evaluation of sharp substernal chest pain that started at 05:00 this morning when she was lying in bed. Pain is improved over time without any treatment. She has some tenderness of her upper sternal area examination, she appears well. Her EKG does not have any ischemic changes, no STEMI. Her initial troponin was less than 3.5. Given the acute onset of her pain will get a 3 hour repeat to ensure ACS although this is less likely. She is not tachycardic or hypoxic, doubt PE. Her chest x-ray is clear. Will treat with a dose of Motrin and reassess. Reevaluation(s) Reevaluation #1: Pain is improved, nearly gone at this time. Repeat troponin is negative. Medications Administered Discontinued Medications Generic Name Dose Route Start Last Admin Trade Name Freq PRN Reason Stop Dose Admin Ibuprofen 600 mg 12/27/21 11:36 12/27/21 11:50 Ibuprofen 600 Mg Tablet PO 12/27/21 11:37 600 mg ONCE ONE Administration MDM - Chest Pain Medical Records Data Attestation: I reviewed the patient's medical records. Lab Data Attestation: I reviewed the patient's lab results. Result diagrams: 12/27/21 09:57 12/27/21 09:57 Labs: Lab Results 12/27/21 12/27/21 12/27/21 Range/Units 09:57 09:57 09:57 WBC 9.5 (4.8-10.8) X10*3/uL RBC 4.56 (4.20-5.50) X10*6/uL Hgb 14.3 (12.0-16.0) g/dl Hct 41.3 (37.0-47.0) % MCV 90.6 (80.0-98.0) fL MCH 31.4 (27.0-33.0) pg MCHC 34.6 (31.0-35.0) g/dl RDW 13.1 (11.0-16.0) % Plt Count 310 (160-400) X10*3/uL MPV 8.6 L (9.4-12.3) fL Immature Gran % (Auto) 0.6 H (0.0-0.4) % Neut % (Auto) 62.7 (45-73) % Lymph % (Auto) 27.4 (20-40) % [place] % (Auto) 6.5 (2-11) % Eos % (Auto) 2.1 (0-4) % Baso % (Auto) 0.7 (0-2) % Lymph # (Auto) 2.6 (1.2-4.9) X10*3/uL [place] # (Auto) 0.6 (0.1-1.2) X10*3/uL Eos # (Auto) 0.2 (0.0-0.4) X10*3/uL Baso # (Auto) 0.1 (0.0-0.2) X10*3/uL Abs Immat Gran (auto) 0.06 H (0.00-0.03) X10*3/uL Absolute Neuts (auto) 5.9 (2.0-8.3) x10*3/uL Absolute Nucleated RBC 0.000 (0.0-0.012) X10*3/uL Nucleated RBC % (auto) 0.0 (0.0-0.2) /100WBC Sodium 139 (135-145) mmol/L Potassium 3.8 (3.3-5.1) mmol/L Chloride 109 H (96-108) mmol/L Carbon Dioxide 19 L (22-29) mmol/L Anion Gap 15 (12-20) BUN 15 (9-16) mg/dL Creatinine 0.59 (0.5-1.4) mg/dL Estim Creat Clear Calc 107.3 Estimated GFR > 60 Random Glucose 99 (60-115) mg/dL Calcium 9.3 D (8.4-10.2) mg/dL Troponin I High Sens (<3.5-17.0) ng/L COVID-19 ([facility]) Negative (Negative) COVID-19 Clin Com See Note 12/27/21 12/27/21 Range/Units 09:57 13:00 WBC (4.8-10.8) X10*3/uL RBC (4.20-5.50) X10*6/uL Hgb (12.0-16.0) g/dl Hct (37.0-47.0) % MCV (80.0-98.0) fL MCH (27.0-33.0) pg MCHC (31.0-35.0) g/dl RDW (11.0-16.0) % Plt Count (160-400) X10*3/uL MPV (9.4-12.3) fL Immature Gran % (Auto) (0.0-0.4) % Neut % (Auto) (45-73) % Lymph % (Auto) (20-40) % [place] % (Auto) (2-11) % Eos % (Auto) (0-4) % Baso % (Auto) (0-2) % Lymph # (Auto) (1.2-4.9) X10*3/uL [place] # (Auto) (0.1-1.2) X10*3/uL Eos # (Auto) (0.0-0.4) X10*3/uL Baso # (Auto) (0.0-0.2) X10*3/uL Abs Immat Gran (auto) (0.00-0.03) X10*3/uL Absolute Neuts (auto) (2.0-8.3) x10*3/uL Absolute Nucleated RBC (0.0-0.012) X10*3/uL Nucleated RBC % (auto) (0.0-0.2) /100WBC Sodium (135-145) mmol/L Potassium (3.3-5.1) mmol/L Chloride (96-108) mmol/L Carbon Dioxide (22-29) mmol/L Anion Gap (12-20) BUN (9-16) mg/dL Creatinine (0.5-1.4) mg/dL Estim Creat Clear Calc Estimated GFR Random Glucose (60-115) mg/dL Calcium (8.4-10.2) mg/dL Troponin I High Sens < 3.5 < 3.5 (<3.5-17.0) ng/L COVID-19 ([facility]) (Negative) COVID-19 Clin Com ECG Data ECG #1: Attestation: I personally reviewed and interpreted this ECG as follows: ECG interpretation date: 12/27/21 ECG interpretation time: 10:45 Prior ECG tracings: available for review Interpretation: normal sinus rhythm, normal [place] interval, normal QTC, no significant change from prior. No ST segment elevations or depressions. Scores Heart Score History: -0- slightly suspicious ECG: -0- normal Age: -1- >45 - <65 Risk factory: -0- no risk factors known Troponin: -0- < or = normal limit Score: 1 Risk: 1.7% [place] PE Malignancy: 1 Score: 1 2-tier Risk: unlikely risk (5%) 3-tier Risk: low risk (3.4%) Discharge Plan Discharge Clinical Impression: Atypical chest pain Patient Disposition: Home, Self-Care Instructions: Noncardiac Chest Pain (ED) Additional Instructions: Your workup today was unremarkable. Your heart enzyme was negative x2. Your EKG did not show any evidence of strain on your heart. Your pain is not thought to be cardiac in nature. Recommend taking Tylenol and or Motrin for the pain. Recommend following up with your primary care doctor next week. If you have new or worsening symptoms call 911 or come back to the ER for further evaluation. Tu trabajo de hoy no fue nada especial. Rai enzima card?janett fue negativa x2. Rai electrocardiograma no mostr? ninguna evidencia de tensi?n en rai coraz?n. No se nitish que rai dolor sea de naturaleza card?janett. Recomiende suad Tylenol o Motrin para el dolor. Recomendar seguimiento con rai m?dico de atenci?n primaria la pr?xima semana. Si tiene s?ntomas nuevos o que empeoran, llame al 911 o regrese a la mariella de emergencias para yohana evaluaci?n adicional. Prescriptions: No Action quetiapine 25 mg tablet 1 tab PO QAM atorvastatin 20 mg tablet 1 tab PO BEDTIME quetiapine 100 mg tablet 1 tab PO BEDTIME lidocaine 5 % adhesive patch,medicated 1 patch topical DAILY sertraline 25 mg tablet 1 tab PO QAM oxcarbazepine 600 mg tablet 1 tab PO BID nabumetone 500 mg tablet 1 tab PO BID cholecalciferol (vitamin D3) [Vitamin D3] 50 mcg (2,000 unit) tablet 1 tab PO DAILY ondansetron 4 mg tablet,disintegrating 4 mg PO Q8H PRN (Reason: nausea and vomiting) Qty: 20 0RF cyclobenzaprine 10 mg tablet 10 mg PO TID Qty: 10 0RF naproxen [Naprosyn] 500 mg tablet 500 mg PO BID Qty: 20 0RF simethicone [Gas Relief (simethicone)] 180 mg capsule 180 mg PO .Q.i.d. Qty: 120 4RF hydrocortisone [Proctosol HC] 2.5 % cream with perineal applicator 1 appl [place] BID Qty: 30 3RF Linzess 72 mcg capsule 72 mcg PO QAM 30 Days Qty: 30 6RF Rx Instructions: Stop Amitiza pt had bad s/e omeprazole 20 mg capsule,delayed release(DR/EC) 20 mg PO BID Qty: 60 6RF Referrals: Mirian Altamirano, DOG HANDLER OR TRAINER [Primary Care Provider] -
[2021-12-27 11:26] VITALS: BP 132/60; PULSE 67; RESP 13; TEMP 36.8; O2SAT 98
[2021-12-27] MEDS: Ibuprofen 600 MG TABLET PO (11:50)
[2021-12-27 13:25] LABS: Troponin-I High Sensitivity < 3.5 ng/L (<3.5-17.0)
[2021-12-27 13:47] VITALS: BP 125/64; PULSE 72; RESP 19; TEMP 37.5; O2SAT 99
== END 2021-12-27 13:52 | disposition home or self-care (01) ==
PROVIDERS: Physician Assistant; Emergency Provider Emergency Medicine; PCP Nurse Practitioner Primary Care
DX: R07.89 Other chest pain (principal); Z20.822 Contact with and (suspected) exposure to COVID-19; F17.210 Nicotine dependence, cigarettes, uncomplicated; F12.90 Cannabis use, unspecified, uncomplicated; Z85.038 Personal history of other malignant neoplasm of large intestine; Z79.02 Long term (current) use of antithrombotics/antiplatelets; Z79.899 Other long term (current) drug therapy
CPT/HCPCS: 36415; 71045; 80048; 84484; 85025; 87635; 93005; 99283; 99284

== ENCOUNTER 2022-01-12 08:01 | Emergency (ER) | payer MEDICAID, SELFPAY ==
[2022-01-12 08:10] VITALS: BP 129/71; PULSE 76; RESP 16; TEMP 36.9; O2SAT 97; BMI 23.1
--- NOTE | 2022-01-12 08:13 | ECG_ITS ---
Test Reason : cp Blood Pressure : / mmHG Vent. Rate : 074 BPM Atrial Rate : 074 BPM P-R Int : 146 ms QRS Dur : 080 ms QT Int : 366 ms P-R-T Axes : 067 017 -10 degrees QTc Int : 406 ms Normal sinus rhythm Low voltage QRS Nonspecific T wave abnormality Abnormal ECG When compared with ECG of 27-DEC-2021 09:38, Nonspecific T wave abnormality now evident in Lateral leads Referred By: Generic ED Physician Electronically Signed By:ALEJANDRO RENTERIA MD
--- NOTE | 2022-01-12 08:25 | ED_ITS ---
HPI - General Adult General Chief complaint: General Medical Stated complaint: Chest pain/Headache Time Seen by Provider: 01/12/22 08:24 Source: patient Mode of arrival: ambulatory Limitations: no limitations History of Present Illness HPI narrative: 2 months of chest pain on and off with multiple visits. Patient with chest pain this morning with pressure and palpitations. patient was sleeping with when she woke with the discomfort. patient suffers from anxiety and takes trileptal and seroquel. There has been some adjustments to her psych medications. Onset (ago): hour(s) Radiation: non-radiation Severity: moderate Quality: other (pressure) Pain Consistency: constant Associated symptoms: chest pain Related Data Home Medications Medication Instructions Recorded Confirmed atorvastatin 20 mg tablet 1 tab PO BEDTIME 09/04/20 12/06/20 cholecalciferol (vitamin D3) 50 1 tab PO DAILY 09/04/20 12/06/20 mcg (2,000 unit) tablet (Vitamin D3) lidocaine 5 % topical patch 1 patch topical DAILY 09/04/20 12/06/20 nabumetone 500 mg tablet 1 tab PO BID 09/04/20 12/06/20 oxcarbazepine 600 mg tablet 1 tab PO BID 09/04/20 12/06/20 quetiapine 100 mg tablet 1 tab PO BEDTIME 09/04/20 12/06/20 quetiapine 25 mg tablet 1 tab PO QAM 09/04/20 12/06/20 sertraline 25 mg tablet 1 tab PO QAM 09/04/20 12/06/20 Previous Rx's Medication Instructions Recorded simethicone 180 mg capsule (Gas 180 mg PO .Q.i.d. #120 caps 04/08/20 Relief (simethicone)) ondansetron 4 mg disintegrating 4 mg PO Q8H PRN nausea and 12/06/20 tablet vomiting #20 tabs cyclobenzaprine 10 mg tablet 10 mg PO TID #10 tabs 03/10/21 naproxen 500 mg tablet (Naprosyn) 500 mg PO BID #20 tabs 03/10/21 hydrocortisone 2.5 % topical cream 1 appl [place] BID hemorrhoids #30 grams 07/04/21 with perineal applicator (Proctosol HC) linaclotide 72 mcg capsule 72 mcg PO QAM 30 days #30 caps 07/04/21 (Linzess) omeprazole 20 mg capsule,delayed 20 mg PO BID #60 caps 10/03/21 release Allergies Allergy/AdvReac Type Severity Reaction Status Date / Time aspirin [ASA] Allergy Mild BRUISES Verified 12/16/21 08:07 Review of Systems Review of Systems: Yes all other systems are reviewed and are negative [facility] Past Medical History Medical History Anemia Chronic right shoulder pain Colon cancer Colon cancer screening Depression GERD (gastroesophageal reflux disease) Smoker Surgical History History of colon resection History of dilation and curettage History of excision of lesion History of exploratory laparotomy Hx of section Hx of cholecystectomy Hx of colonoscopy Hx of foot surgery Hx of hysterectomy Family History Family History Father FH: prostate cancer Paternal Aunt Breast cancer Social History Social History Household Members: Spouse Are you a primary personal care worker to a significant other at home: No Do you presently have visiting nurse or other home services: No Alcohol intake: never Patient Tobacco Use Status: Current everyday Tobacco user Tobacco use type: Cigarette Cigarette Packs Per Day: 0.5 Cigarettes Per Day: 10.0 Years Smoked: ~30 Substance Use Type: Marijuana Advance Directives: No Advance Directives Information Provided: Yes Physical Exam ED Vital Signs: Vital Signs - 24 hr 01/12/22 08:10 01/12/22 08:44 Temperature 98.5 F Pulse Rate 76 72 Respiratory Rate 16 16 Blood Pressure 129/71 107/74 Pulse Oximetry 97 95 Oxygen Delivery Method Room Air Room Air BMI result Body Mass Index 23.1 Const General: healthy appearing Nutritional Appearance: average body habitus Orientation/consciousness: oriented to person and patient oriented x3 Limitations: no limitations HENMT Head: Yes normal to inspection Ears: external ears normal General nose exam: Normal external nose present Mouth: Normal oral and palatal mucosa present and oropharynx normal Throat: Yes posterior oropharynx normal Eyes General: appearance normal, both eyes and all related structures Neck Neck: Yes normal visual inspection Chest Chest palpation & inspection: normal inspection of the chest Resp Auscultation: clear to auscultation bilaterally Cardio Jugular venous distension: no JVD Rate: regular rate Rhythm: regular rhythm Heart sounds: S1 normal heart sound present and S2 normal heart sound present GI Inspection: Yes normal to inspection Palpation (GI): Soft to palpation, nontender and No hepatosplenomegaly present Auscultation: normal bowel sounds General: Yes no CVA tenderness Back/Spine/Pelvis Back: no CVA tenderness Skin General skin exam: no rashes or lesions noted Neuro General: oriented to person and patient oriented x3 Cranial nerves: Yes CN's II-XII intact bilaterally Motor exam (neuro): 5/5 motor strength present throughout Extrem General: Yes normal to inspection Psych Appearance: grossly normal Course Reevaluation(s) Reevaluation #1: repeat troponins negative, patient most likely having increased stress and anxiety Time: 13:12 Medical Decision Making Lab Data Result diagrams: 01/12/22 08:51 01/12/22 08:51 Labs: Lab Results 01/12/22 01/12/22 01/12/22 Range/Units 08:51 08:51 08:51 WBC 8.8 (4.8-10.8) X10*3/uL RBC 4.66 (4.20-5.50) X10*6/uL Hgb 14.2 (12.0-16.0) g/dl Hct 42.6 (37.0-47.0) % MCV 91.4 (80.0-98.0) fL MCH 30.5 (27.0-33.0) pg MCHC 33.3 (31.0-35.0) g/dl RDW 13.2 (11.0-16.0) % Plt Count 309 (160-400) X10*3/uL MPV 8.8 L (9.4-12.3) fL Immature Gran % (Auto) 0.6 H (0.0-0.4) % Neut % (Auto) 67.6 (45-73) % Lymph % (Auto) 21.5 (20-40) % [place] % (Auto) 7.5 (2-11) % Eos % (Auto) 2.2 (0-4) % Baso % (Auto) 0.6 (0-2) % Lymph # (Auto) 1.9 (1.2-4.9) X10*3/uL [place] # (Auto) 0.7 (0.1-1.2) X10*3/uL Eos # (Auto) 0.2 (0.0-0.4) X10*3/uL Baso # (Auto) 0.1 (0.0-0.2) X10*3/uL Abs Immat Gran (auto) 0.05 H (0.00-0.03) X10*3/uL Absolute Neuts (auto) 6.0 (2.0-8.3) x10*3/uL Absolute Nucleated RBC 0.000 (0.0-0.012) X10*3/uL Nucleated RBC % (auto) 0.0 (0.0-0.2) /100WBC Sodium 137 (135-145) mmol/L Potassium 3.7 (3.3-5.1) mmol/L Chloride 106 (96-108) mmol/L Carbon Dioxide 23 (22-29) mmol/L Anion Gap 12 (12-20) BUN 12 (9-16) mg/dL Creatinine 0.59 (0.5-1.4) mg/dL Estim Creat Clear Calc 95.2 Estimated GFR > 60 Random Glucose 99 (60-115) mg/dL Calcium 9.2 (8.4-10.2) mg/dL Troponin I High Sens < 3.5 (<3.5-17.0) ng/L 01/12/22 Range/Units 11:42 WBC (4.8-10.8) X10*3/uL RBC (4.20-5.50) X10*6/uL Hgb (12.0-16.0) g/dl Hct (37.0-47.0) % MCV (80.0-98.0) fL MCH (27.0-33.0) pg MCHC (31.0-35.0) g/dl RDW (11.0-16.0) % Plt Count (160-400) X10*3/uL MPV (9.4-12.3) fL Immature Gran % (Auto) (0.0-0.4) % Neut % (Auto) (45-73) % Lymph % (Auto) (20-40) % [place] % (Auto) (2-11) % Eos % (Auto) (0-4) % Baso % (Auto) (0-2) % Lymph # (Auto) (1.2-4.9) X10*3/uL [place] # (Auto) (0.1-1.2) X10*3/uL Eos # (Auto) (0.0-0.4) X10*3/uL Baso # (Auto) (0.0-0.2) X10*3/uL Abs Immat Gran (auto) (0.00-0.03) X10*3/uL Absolute Neuts (auto) (2.0-8.3) x10*3/uL Absolute Nucleated RBC (0.0-0.012) X10*3/uL Nucleated RBC % (auto) (0.0-0.2) /100WBC Sodium (135-145) mmol/L Potassium (3.3-5.1) mmol/L Chloride (96-108) mmol/L Carbon Dioxide (22-29) mmol/L Anion Gap (12-20) BUN (9-16) mg/dL Creatinine (0.5-1.4) mg/dL Estim Creat Clear Calc Estimated GFR Random Glucose (60-115) mg/dL Calcium (8.4-10.2) mg/dL Troponin I High Sens < 3.5 (<3.5-17.0) ng/L ECG Data Attestation: I personally reviewed and interpreted this ECG as follows: Interpretation: sinus 80, flipped ts V3-V5 which appear new compared to old Discharge Plan Discharge Clinical Impression: Anxiety Patient Disposition: Home, Self-Care Instructions: Anxiety (ED) Prescriptions: No Action quetiapine 25 mg tablet 1 tab PO QAM atorvastatin 20 mg tablet 1 tab PO BEDTIME quetiapine 100 mg tablet 1 tab PO BEDTIME lidocaine 5 % adhesive patch,medicated 1 patch topical DAILY sertraline 25 mg tablet 1 tab PO QAM oxcarbazepine 600 mg tablet 1 tab PO BID nabumetone 500 mg tablet 1 tab PO BID cholecalciferol (vitamin D3) [Vitamin D3] 50 mcg (2,000 unit) tablet 1 tab PO DAILY ondansetron 4 mg tablet,disintegrating 4 mg PO Q8H PRN (Reason: nausea and vomiting) Qty: 20 0RF cyclobenzaprine 10 mg tablet 10 mg PO TID Qty: 10 0RF naproxen [Naprosyn] 500 mg tablet 500 mg PO BID Qty: 20 0RF simethicone [Gas Relief (simethicone)] 180 mg capsule 180 mg PO .Q.i.d. Qty: 120 4RF hydrocortisone [Proctosol HC] 2.5 % cream with perineal applicator 1 appl [place] BID Qty: 30 3RF Linzess 72 mcg capsule 72 mcg PO QAM 30 Days Qty: 30 6RF Rx Instructions: Stop Amitiza pt had bad s/e omeprazole 20 mg capsule,delayed release(DR/EC) 20 mg PO BID Qty: 60 6RF Referrals: Mirian Altamirano, SOFTWARE DEVELOPER [Primary Care Provider] - 3 days
[2022-01-12 08:44] VITALS: BP 107/74; PULSE 72; RESP 16; O2SAT 95
[2022-01-12 09:01] LABS: MANUAL DIFF FLAG NO
[2022-01-12 09:09] LABS: Basophils Absolute Auto 0.1 X10*3/uL (0.0-0.2); Basophils Percent Auto 0.6 % (0-2); Eosinophils Absolute Auto 0.2 X10*3/uL (0.0-0.4); Eosinophils Percent Auto 2.2 % (0-4); Hematocrit 42.6 % (37.0-47.0); Hemoglobin 14.2 g/dl (12.0-16.0); Imm Gran Abs Auto 0.05 X10*3/uL (0.00-0.03); Imm Gran Pct Auto 0.6 % (0.0-0.4); Lymphocytes Absolute Auto 1.9 X10*3/uL (1.2-4.9); Lymphocytes Percent Auto 21.5 % (20-40); Mean Corpuscular HGB Conc 33.3 g/dl (31.0-35.0); Mean Corpuscular Hemoglobin 30.5 pg (27.0-33.0); Mean Corpuscular Volume 91.4 fL (80.0-98.0); Mean Platelet Volume 8.8 fL (9.4-12.3); Monocytes Absolute Auto 0.7 X10*3/uL (0.1-1.2); Monocytes Percent Auto 7.5 % (2-11); Neutrophils Percent Auto 67.6 % (45-73); Platelet Count 309 X10*3/uL (160-400); Red Blood Count 4.66 X10*6/uL (4.20-5.50); Red Cell Distribution Width 13.2 % (11.0-16.0); White Blood Count 8.8 X10*3/uL (4.8-10.8)
[2022-01-12 09:28] LABS: Anion Gap 12 (12-20); Blood Urea Nitrogen 12 mg/dL (9-16); Calcium 9.2 mg/dL (8.4-10.2); Carbon Dioxide 23 mmol/L (22-29); Chloride 106 mmol/L (96-108); Creatinine Clr Calc Pharmacy 95.2; Estimated Glomerular Filt Rate > 60; Glucose Random 99 mg/dL (60-115); Potassium 3.7 mmol/L (3.3-5.1); Sodium 137 mmol/L (135-145)
[2022-01-12 09:43] LABS: Troponin-I High Sensitivity < 3.5 ng/L (<3.5-17.0)
[2022-01-12 12:12] LABS: Troponin-I High Sensitivity < 3.5 ng/L (<3.5-17.0)
== END 2022-01-12 13:22 | disposition home or self-care (01) ==
PROVIDERS: Emergency Provider Emergency Medicine; PCP Nurse Practitioner Primary Care
DX: F41.9 Anxiety disorder, unspecified (principal); F17.210 Nicotine dependence, cigarettes, uncomplicated; F12.90 Cannabis use, unspecified, uncomplicated; Z79.899 Other long term (current) drug therapy
CPT/HCPCS: 36415; 80048; 84484; 85025; 93005; 99283; 99284

== ENCOUNTER 2022-01-20 06:53 | Outpatient (REF) | payer MEDICAID, SELFPAY ==
[2022-01-20 07:46] LABS: Alanine Aminotransferase 16 U/L (0-31); Albumin Level 4.3 g/dL (3.5-5.0); Alkaline Phosphatase 56 U/L (39-117); Aspartate Amino Transferase 14 U/L (5-31); Bilirubin Direct < 0.2 mg/dL (0.0-0.5); Bilirubin Total 0.3 mg/dL (0.0-1.0); Sodium 141 mmol/L (135-145); Total Protein 6.5 g/dL (6.5-8.0)
== END 2022-01-20 06:54 | disposition home or self-care (01) ==
LOC: HO.LAB 06:53
PROVIDERS: PCP Nurse Practitioner Primary Care; Visit Provider Nurse Practitioner Psychiatric/Mental Health
DX: Z79.899 Other long term (current) drug therapy (principal)
CPT/HCPCS: 36415; 80076; 84295

== ENCOUNTER 2022-02-02 06:08 | Emergency (ER) | payer MEDICAID, SELFPAY ==
--- NOTE | 2022-02-02 | ECG_ITS ---
Test Reason : CHEST PAIN Blood Pressure : / mmHG Vent. Rate : 068 BPM Atrial Rate : 068 BPM P-R Int : 148 ms QRS Dur : 080 ms QT Int : 388 ms P-R-T Axes : 065 027 -05 degrees QTc Int : 412 ms Normal sinus rhythm Low voltage QRS Nonspecific T wave abnormality Abnormal ECG No previous ECGs available Referred By: Generic ED Physician Electronically Signed By:Jorge Hines
--- NOTE | ~2022-02-02 | XR_ITS ---
EXAMINATION: XR CHEST CLINICAL INFORMATION: Chest pain. COMPARISON: Chest radiograph 12/27/2021. TECHNIQUE: 2 views of the chest were obtained. FINDINGS: Normal cardiomediastinal silhouette. No focal airspace opacity, pleural effusion or pneumothorax. No acute osseous abnormalities. Right upper quadrant clips. XR/XR chest 2V IMPRESSION: No acute cardiopulmonary findings.
[2022-02-02 06:09] VITALS: BP 143/81; PULSE 73; RESP 18; TEMP 36.7; O2SAT 95; BMI 24.9
[2022-02-02 06:32] LABS: MANUAL DIFF FLAG NO
[2022-02-02 06:45] LABS: Basophils Absolute Auto 0.1 X10*3/uL (0.0-0.2); Basophils Percent Auto 0.6 % (0-2); Eosinophils Absolute Auto 0.2 X10*3/uL (0.0-0.4); Eosinophils Percent Auto 1.9 % (0-4); Hematocrit 40.7 % (37.0-47.0); Hemoglobin 13.7 g/dl (12.0-16.0); Imm Gran Abs Auto 0.06 X10*3/uL (0.00-0.03); Imm Gran Pct Auto 0.6 % (0.0-0.4); Lymphocytes Absolute Auto 2.8 X10*3/uL (1.2-4.9); Lymphocytes Percent Auto 25.9 % (20-40); Mean Corpuscular HGB Conc 33.7 g/dl (31.0-35.0); Mean Corpuscular Hemoglobin 30.8 pg (27.0-33.0); Mean Corpuscular Volume 91.5 fL (80.0-98.0); Mean Platelet Volume 8.6 fL (9.4-12.3); Monocytes Absolute Auto 0.8 X10*3/uL (0.1-1.2); Monocytes Percent Auto 7.4 % (2-11); Neutrophils Absolute Auto 6.9 x10*3/uL (2.0-8.3); Neutrophils Percent Auto 63.6 % (45-73); Platelet Count 306 X10*3/uL (160-400); Red Blood Count 4.45 X10*6/uL (4.20-5.50); Red Cell Distribution Width 13.6 % (11.0-16.0); White Blood Count 10.9 X10*3/uL (4.8-10.8)
[2022-02-02 06:54] LABS: Alanine Aminotransferase 24 U/L (0-31); Albumin Level 4.3 g/dL (3.5-5.0); Alkaline Phosphatase 70 U/L (39-117); Anion Gap 11 (12-20); Aspartate Amino Transferase 16 U/L (5-31); Bilirubin Total 0.2 mg/dL (0.0-1.0); Blood Urea Nitrogen 20 mg/dL (9-16); Calcium 9.2 mg/dL (8.4-10.2); Carbon Dioxide 28 mmol/L (22-29); Chloride 104 mmol/L (96-108); Creatinine Clr Calc Pharmacy 89.3; Estimated Glomerular Filt Rate > 60; Glucose Random 101 mg/dL (60-115); Magnesium 2.1 mg/dL (1.6-2.6); Potassium 3.4 mmol/L (3.3-5.1); Sodium 140 mmol/L (135-145); Total Protein 6.6 g/dL (6.5-8.0)
[2022-02-02 06:55] LABS: Troponin-I High Sensitivity < 3.5 ng/L (<3.5-17.0)
--- NOTE | 2022-02-02 07:07 | ED.CHESTPAIN ---
HPI - Chest Pain General Chief Complaint: Chest Pain Stated Complaint: CP, radiates to neck and shoulder Time Seen by Provider: 02/02/22 06:42 Source: patient and old records reviewed History of Present Illness HPI narrative: Patient presents complaining of palpitations and chest pain which awoke her from sleep this morning. Patient states at 03:00 she woke up with abrupt palpitations. She describes sensation as feeling like her heart was beating very hard and fast. She was also short of breath at the time. She states this has happened to her twice over the past several months. She has presented to the emergency department in cardiac workup at that time was negative. She states this episode is identical. She is feeling better than when she 1st woke up but is still having mild symptoms. No recent illness such as cough or fevers or chills. No presumed septated factors that she knows of. She has risk factors of daily tobacco use and hypertension for which she is on low-dose amlodipine. She is due to see a data processing operator next month. No precipitating factors of which she is aware. No alleviating factors other than sitting up. Related Data Home Medications Medication Instructions Recorded Confirmed atorvastatin 20 mg tablet 1 tab PO BEDTIME 09/04/20 12/06/20 cholecalciferol (vitamin D3) 50 1 tab PO DAILY 09/04/20 12/06/20 mcg (2,000 unit) tablet (Vitamin D3) lidocaine 5 % topical patch 1 patch topical DAILY 09/04/20 12/06/20 nabumetone 500 mg tablet 1 tab PO BID 09/04/20 12/06/20 oxcarbazepine 600 mg tablet 1 tab PO BID 09/04/20 12/06/20 quetiapine 100 mg tablet 1 tab PO BEDTIME 09/04/20 12/06/20 quetiapine 25 mg tablet 1 tab PO QAM 09/04/20 12/06/20 sertraline 25 mg tablet 1 tab PO QAM 09/04/20 12/06/20 Previous Rx's Medication Instructions Recorded simethicone 180 mg capsule (Gas 180 mg PO .Q.i.d. #120 caps 04/08/20 Relief (simethicone)) ondansetron 4 mg disintegrating 4 mg PO Q8H PRN nausea and 12/06/20 tablet vomiting #20 tabs cyclobenzaprine 10 mg tablet 10 mg PO TID #10 tabs 03/10/21 naproxen 500 mg tablet (Naprosyn) 500 mg PO BID #20 tabs 03/10/21 hydrocortisone 2.5 % topical cream 1 appl DC BID hemorrhoids #30 grams 07/04/21 with perineal applicator (Proctosol HC) linaclotide 72 mcg capsule 72 mcg PO QAM 30 days #30 caps 07/04/21 (Linzess) omeprazole 20 mg capsule,delayed 20 mg PO BID #60 caps 10/03/21 release Allergies Allergy/AdvReac Type Severity Reaction Status Date / Time aspirin [ASA] AdvReac Mild BRUISES Verified 02/02/22 06:09 Review of Systems Constitutional: Comments: No fevers or chills Cardiovascular: Comments: Palpitations as described Respiratory: Comments: Orthopnea. No cough. Gastrointestinal: Comments: No nausea vomiting diarrhea or abdominal pain Musculoskeletal: Comments: No calf pain or pedal edema Integumentary/Breasts: Comments: No rash Neurologic: Comments: No focal weakness Psychiatric: Comments: No recent stressors PMFSH Past Medical History Medical History Anemia Chronic right shoulder pain Colon cancer Colon cancer screening Depression GERD (gastroesophageal reflux disease) Smoker Surgical History History of colon resection History of dilation and curettage History of excision of lesion History of exploratory laparotomy Hx of section Hx of cholecystectomy Hx of colonoscopy Hx of foot surgery Hx of hysterectomy Family History Family History Father FH: prostate cancer Paternal Aunt Breast cancer Social History Social History Household Members: Spouse Are you a primary critical care paramedic to a significant other at home: No Do you presently have visiting nurse or other home services: No Alcohol intake: never Patient Tobacco Use Status: Current everyday Tobacco user Tobacco use type: Cigarette Cigarette Packs Per Day: 0.5 Cigarettes Per Day: 10.0 Years Smoked: ~30 Smoked in Last 30 Days: No Use of substances other than those prescribed or required for medical reasons: No Substance Use Type: Marijuana Advance Directives: No Advance Directives Information Provided: Yes Patient : No Physical Exam Vital Signs: Vital Signs: Last Vital Signs Temp 98.1 F 02/02/22 06:09 Pulse 73 02/02/22 06:09 Resp 18 02/02/22 06:09 BP 143/81 H 02/02/22 06:09 Pulse Ox 95 02/02/22 06:09 O2 Del Method 02/02/22 06:09 BMI result Body Mass Index 24.9 Const: Other: Alert and oriented. No acute distress. Chest: Other: Chest wall nontender Resp: Other: Clear and equal bilaterally. Good air entry. No wheezes rales or rhonchi Cardio: Other: Regular rate and rhythm without murmurs rubs or gallops. GI: Other: Soft nontender nondistended Skin: Other: Warm pink and dry without rash Neuro: Other: No obvious focal neuro deficits. Ambulatory Extrem: Other: No calf tenderness. No pedal edema Course Course Course Narrative: 07:13. EKG shows normal sinus rhythm without ST changes. QTC is somewhat prolonged at 457. Otherwise normal EKG. Chemistries including troponin are normal. CBC shows white count 10.9 which is similar to prior baselines. 09:04. Workup in the emergency department is reassuring. Troponin is normal. BNP is normal. No evidence of acute ischemic causes. She will likely need to keep her follow-up with cardiology as next step. Stable for discharge home Medical Decision Making Medical Decision Making MDM Narrative: Patient with several episodes of paroxysmal nocturnal dyspnea with palpitations. Differential diagnosis would include sleep apnea, congestive heart failure, cardiac dysrhythmia, anxiety, panic disorder It is unlikely to be acute myocardial ischemia given recent negative workups, but will repeat workup. Review of old records shows she has not had a BNP drawn. I will add that on to her labs today. Lab Data Result Diagrams: 02/02/22 06:26 02/02/22 06:26 Labs: Lab Results 02/02/22 02/02/22 02/02/22 Range/Units 06:26 06:26 06:26 WBC 10.9 H (4.8-10.8) X10*3/uL RBC 4.45 (4.20-5.50) X10*6/uL Hgb 13.7 (12.0-16.0) g/dl Hct 40.7 (37.0-47.0) % MCV 91.5 (80.0-98.0) fL MCH 30.8 (27.0-33.0) pg MCHC 33.7 (31.0-35.0) g/dl RDW 13.6 (11.0-16.0) % Plt Count 306 (160-400) X10*3/uL MPV 8.6 L (9.4-12.3) fL Immature Gran % (Auto) 0.6 H (0.0-0.4) % Neut % (Auto) 63.6 (45-73) % Lymph % (Auto) 25.9 (20-40) % [place] % (Auto) 7.4 (2-11) % Eos % (Auto) 1.9 (0-4) % Baso % (Auto) 0.6 (0-2) % Lymph # (Auto) 2.8 (1.2-4.9) X10*3/uL [place] # (Auto) 0.8 (0.1-1.2) X10*3/uL Eos # (Auto) 0.2 (0.0-0.4) X10*3/uL Baso # (Auto) 0.1 (0.0-0.2) X10*3/uL Abs Immat Gran (auto) 0.06 H (0.00-0.03) X10*3/uL Absolute Neuts (auto) 6.9 (2.0-8.3) x10*3/uL Absolute Nucleated RBC 0.000 (0.0-0.012) X10*3/uL Nucleated RBC % (auto) 0.0 (0.0-0.2) /100WBC Sodium 140 (135-145) mmol/L Potassium 3.4 (3.3-5.1) mmol/L Chloride 104 (96-108) mmol/L Carbon Dioxide 28 (22-29) mmol/L Anion Gap 11 L (12-20) BUN 20 H (9-16) mg/dL Creatinine 0.68 (0.5-1.4) mg/dL Estim Creat Clear Calc 89.3 Estimated GFR > 60 Random Glucose 101 (60-115) mg/dL Calcium 9.2 (8.4-10.2) mg/dL Magnesium 2.1 (1.6-2.6) mg/dL Total Bilirubin 0.2 (0.0-1.0) mg/dL AST 16 (5-31) U/L ALT 24 (0-31) U/L Alkaline Phosphatase 70 (39-117) U/L Troponin I High Sens < 3.5 (<3.5-17.0) ng/L B-Natriuretic Peptide (<100) pg/mL Total Protein 6.6 (6.5-8.0) g/dL Albumin 4.3 (3.5-5.0) g/dL 02/02/22 Range/Units 06:26 WBC (4.8-10.8) X10*3/uL RBC (4.20-5.50) X10*6/uL Hgb (12.0-16.0) g/dl Hct (37.0-47.0) % MCV (80.0-98.0) fL MCH (27.0-33.0) pg MCHC (31.0-35.0) g/dl RDW (11.0-16.0) % Plt Count (160-400) X10*3/uL MPV (9.4-12.3) fL Immature Gran % (Auto) (0.0-0.4) % Neut % (Auto) (45-73) % Lymph % (Auto) (20-40) % [place] % (Auto) (2-11) % Eos % (Auto) (0-4) % Baso % (Auto) (0-2) % Lymph # (Auto) (1.2-4.9) X10*3/uL [place] # (Auto) (0.1-1.2) X10*3/uL Eos # (Auto) (0.0-0.4) X10*3/uL Baso # (Auto) (0.0-0.2) X10*3/uL Abs Immat Gran (auto) (0.00-0.03) X10*3/uL Absolute Neuts (auto) (2.0-8.3) x10*3/uL Absolute Nucleated RBC (0.0-0.012) X10*3/uL Nucleated RBC % (auto) (0.0-0.2) /100WBC Sodium (135-145) mmol/L Potassium (3.3-5.1) mmol/L Chloride (96-108) mmol/L Carbon Dioxide (22-29) mmol/L Anion Gap (12-20) BUN (9-16) mg/dL Creatinine (0.5-1.4) mg/dL Estim Creat Clear Calc Estimated GFR Random Glucose (60-115) mg/dL Calcium (8.4-10.2) mg/dL Magnesium (1.6-2.6) mg/dL Total Bilirubin (0.0-1.0) mg/dL AST (5-31) U/L ALT (0-31) U/L Alkaline Phosphatase (39-117) U/L Troponin I High Sens (<3.5-17.0) ng/L B-Natriuretic Peptide < 10 (<100) pg/mL Total Protein (6.5-8.0) g/dL Albumin (3.5-5.0) g/dL Discharge Plan Discharge Clinical Impression: Heart palpitations Patient Disposition: Home, Self-Care Instructions: Heart Palpitations (DC) Additional Instructions: Be sure to follow-up with cardiology for further workup as scheduled. Return to the emergency department if symptoms recur and do not resolve spontaneously Prescriptions: No Action quetiapine 25 mg tablet 1 tab PO QAM atorvastatin 20 mg tablet 1 tab PO BEDTIME quetiapine 100 mg tablet 1 tab PO BEDTIME lidocaine 5 % adhesive patch,medicated 1 patch topical DAILY sertraline 25 mg tablet 1 tab PO QAM oxcarbazepine 600 mg tablet 1 tab PO BID nabumetone 500 mg tablet 1 tab PO BID cholecalciferol (vitamin D3) [Vitamin D3] 50 mcg (2,000 unit) tablet 1 tab PO DAILY ondansetron 4 mg tablet,disintegrating 4 mg PO Q8H PRN (Reason: nausea and vomiting) Qty: 20 0RF cyclobenzaprine 10 mg tablet 10 mg PO TID Qty: 10 0RF naproxen [Naprosyn] 500 mg tablet 500 mg PO BID Qty: 20 0RF simethicone [Gas Relief (simethicone)] 180 mg capsule 180 mg PO .Q.i.d. Qty: 120 4RF hydrocortisone [Proctosol HC] 2.5 % cream with perineal applicator 1 appl DC BID Qty: 30 3RF Linzess 72 mcg capsule 72 mcg PO QAM 30 Days Qty: 30 6RF Rx Instructions: Stop Amitiza pt had bad s/e omeprazole 20 mg capsule,delayed release(DR/EC) 20 mg PO BID Qty: 60 6RF
[2022-02-02 07:49] VITALS: PULSE 65
[2022-02-02 08:48] LABS: B Type Natriuretic Peptide < 10 pg/mL (<100)
[2022-02-02 09:18] VITALS: BP 127/52; PULSE 79; RESP 16; TEMP 36.6; O2SAT 96
== END 2022-02-02 09:20 | disposition home or self-care (01) ==
PROVIDERS: Emergency Provider Emergency Medicine
DX: R00.2 Palpitations (principal); R07.89 Other chest pain; M54.2 Cervicalgia; R06.02 Shortness of breath; F17.210 Nicotine dependence, cigarettes, uncomplicated; Z71.6 Tobacco abuse counseling; Z79.899 Other long term (current) drug therapy
CPT/HCPCS: 36415; 71046; 80053; 83735; 83880; 84484; 85025; 93005; 99283; 99285

== ENCOUNTER 2022-02-24 08:34 | Emergency (ER) | payer MEDICAID, SELFPAY ==
--- NOTE | ~2022-02-24 | XR_ITS ---
EXAMINATION: XR CHEST CLINICAL INFORMATION: Chest pain. COMPARISON: February 02, 2022. TECHNIQUE: 2 views of the chest were obtained. FINDINGS: No significant abnormality is noted involving the heart, lungs, mediastinum, bony thorax or soft tissues. Status post cholecystectomy. XR/XR chest 2V IMPRESSION: Unremarkable examination.
--- NOTE | 2022-02-24 08:44 | ED_ITS ---
HPI - General Adult General Chief complaint: General Medical Stated complaint: Pain in back/chest when breathing Time Seen by Provider: 02/24/22 08:43 Source: patient and electronic court recorder Mode of arrival: ambulatory Limitations: language barrier History of Present Illness HPI narrative: Patient is a 51 year old assigned female at with a history of GERD presenting to the emergency department today with chest wall pain and a cough. Patient states that she has been coughing for the last few days and she has been having chest pain with deep breaths during the same time. Patient states that the chest pain is worse with a deep breath. Patient denies any dizziness, lightheadedness, abdominal pain, nausea, vomiting, fever, chills, blurry vision, double vision, loss of vision, difficulty breathing, shortness of breath, back pain, night sweats, pain with urination, increased urinary frequency, increased urinary urgency, blood in her urine or stool, syncope or a near syncopal episode, recent trauma or falls, bowel incontinence, bladder incontinence, bowel retention, bladder retention, or any other complaints at this time. Onset (ago): day(s) (2) Location: chest Radiation: non-radiation Severity: mild Severity scale (1-10): 2 Quality: dull Pain Consistency: intermittent Relieving factors: none Exacerbating factors: other (deep breathing) Associated symptoms: chest pain and cough Treatments prior to arrival: none Related Data Home Medications Medication Instructions Recorded Confirmed atorvastatin 20 mg tablet 1 tab PO BEDTIME 09/04/20 12/06/20 cholecalciferol (vitamin D3) 50 1 tab PO DAILY 09/04/20 12/06/20 mcg (2,000 unit) tablet (Vitamin D3) lidocaine 5 % topical patch 1 patch topical DAILY 09/04/20 12/06/20 nabumetone 500 mg tablet 1 tab PO BID 09/04/20 12/06/20 oxcarbazepine 600 mg tablet 1 tab PO BID 09/04/20 12/06/20 quetiapine 100 mg tablet 1 tab PO BEDTIME 09/04/20 12/06/20 quetiapine 25 mg tablet 1 tab PO QAM 09/04/20 12/06/20 sertraline 25 mg tablet 1 tab PO QAM 09/04/20 12/06/20 Previous Rx's Medication Instructions Recorded simethicone 180 mg capsule (Gas 180 mg PO .Q.i.d. #120 caps 04/08/20 Relief (simethicone)) ondansetron 4 mg disintegrating 4 mg PO Q8H PRN nausea and 12/06/20 tablet vomiting #20 tabs cyclobenzaprine 10 mg tablet 10 mg PO TID #10 tabs 03/10/21 naproxen 500 mg tablet (Naprosyn) 500 mg PO BID #20 tabs 03/10/21 hydrocortisone 2.5 % topical cream 1 appl GA BID hemorrhoids #30 grams 07/04/21 with perineal applicator (Proctosol HC) linaclotide 72 mcg capsule 72 mcg PO QAM 30 days #30 caps 07/04/21 (Linzess) omeprazole 20 mg capsule,delayed 20 mg PO BID #60 caps 10/03/21 release benzonatate 100 mg capsule 100 mg PO BID PRN cough 7 days #14 02/24/22 caps doxycycline hyclate 100 mg tablet 100 mg PO BID 7 days #14 tabs 02/24/22 Allergies Allergy/AdvReac Type Severity Reaction Status Date / Time aspirin [ASA] AdvReac Mild BRUISES Verified 02/02/22 06:09 Review of Systems Constitutional: Constitutional: Reports no additional constitutional complaints, Denies chills, Denies fever(s) and Denies night sweats Eyes: Eyes: Reports no additional eye complaints, Denies blurry vision, Denies change in vision, Denies diplopia, Denies eye discharge, Denies loss of vision and Denies eye pain ENT: Denies dizziness Cardiovascular: Cardiovascular: Reports no additional cardiovascular complaints, Reports chest pain, Denies lightheadedness, Denies Loss of Consciousness and Denies dyspnea Respiratory: Respiratory: Reports no additional respiratory complaints, Reports cough and Denies dyspnea Gastrointestinal: Gastrointestinal: Reports no additional gastrointestinal complaints, Denies abdominal pain, Denies melena, Denies hematochezia, Denies change in bowel habits and Denies change in stool character Genitourinary: Genitourinary: Denies hematuria, Denies urinary frequency, Denies dysuria, Denies urinary incontinence, Denies urinary hesitancy and Denies urinary urgency Musculoskeletal: Musculoskeletal: Reports no additional musculoskeletal c omplaints, Denies numbness and Denies tingling Neurologic: Denies dizziness, Denies loss of vision, Denies numbness and Denies tingling Psychiatric: Psychiatric: Reports no additional psychiatric complaints Endocrine: Endocrine: Reports no additional endocrine complaints Hematologic/Lymphatic: Hematologic/Lymphatic: Reports no additional hematologic/lymphatic complaints Allergic/Immunologic: Allergic/Immunologic: Reports no additional allergic/immunologic complaints PMFSH Past Medical History Attestation statement: The following information was validated with the patient. Source: old records reviewed and nursing notes reviewed Medical History Anemia Chronic right shoulder pain Colon cancer Colon cancer screening Depression GERD (gastroesophageal reflux disease) Smoker Surgical History History of colon resection History of dilation and curettage History of excision of lesion History of exploratory laparotomy Hx of section Hx of cholecystectomy Hx of colonoscopy Hx of foot surgery Hx of hysterectomy Family History Family History Father FH: prostate cancer Paternal Aunt Breast cancer Social History Social History Household Members: Spouse Are you a primary resident care provider to a significant other at home: No Do you presently have visiting nurse or other home services: No Alcohol intake: never Patient Tobacco Use Status: Current everyday Tobacco user Tobacco use type: Cigarette Cigarette Packs Per Day: 0.5 Cigarettes Per Day: 10.0 Years Smoked: ~30 Substance Use Type: Marijuana Advance Directives: No Advance Directives Information Provided: Yes Physical Exam ED Vital Signs: Vital Signs - 24 hr 02/24/22 08:50 Temperature 98.2 F Pulse Rate 67 Respiratory Rate 18 Blood Pressure 138/70 Pulse Oximetry 98 Oxygen Delivery Method Room Air BMI result Body Mass Index 24.9 Const General: cooperative, no acute distress, alert and awake Nutritional Appearance: well nourished Orientation/consciousness: patient oriented x3 Limitations: no limitations HENMT Head: Yes normal to inspection and Yes atraumatic Ears: hearing grossly normal bilaterally and external ears normal General nose exam: Normal external nose present, no nasal discharge noted and no epistaxis Face and sinus: Yes normal facial exam, No abrasion and No laceration Mouth: Normal oral and palatal mucosa present, no drooling and no muffled voice Eyes General: appearance normal, both eyes and all related structures Periorbital: periorbital findings normal Eyelids: Yes eyelids normal Conjunctivae: conjunctivae normal Pupils: Equal, round and reactive pupils present EOM: EOMs intact bilaterally Neck Neck: Yes normal visual inspection, Yes full ROM and Yes no lymphadenopathy Chest Chest palpation & inspection: normal inspection of the chest Resp Effort & Inspection: normal respiratory effort and able to speak in complete sentences Auscultation: clear to auscultation bilaterally Cardio Rate: regular rate Rhythm: regular rhythm GI Inspection: Yes normal to inspection Palpation (GI): Soft to palpation, not firm, nontender, no guarding and not rigid Neuro General: patient oriented x3 and moves all extremities Cranial nerves: Yes Equal, round and reactive pupils present Cognition (Neuro): normal cognition Motor exam (neuro): 5/5 motor strength present throughout Sensory Exam: Normal double simultaneous stimulation for sensation Coordination: [id number] test normal Extrem General: Yes normal to inspection, Yes full ROM and Yes capillary refill normal Psych Appearance: grossly normal Mental Status: mental status grossly normal Affect: normal affect Attitude: cooperative Thought process: Normal thought process present Thought content: Normal thought content present Insight: Good insight present (Psych) Medications Administered Discontinued Medications Generic Name Dose Route Start Last Admin Trade Name Kandi PRN Reason Stop Dose Admin Benzonatate 100 mg 02/24/22 08:53 02/24/22 09:44 Benzonatate 100 Mg Capsule PO 02/24/22 08:54 100 mg ONCE ONE Administration Ketorolac Tromethamine 15 mg 02/24/22 08:53 02/24/22 09:44 Ketorolac Tromethamine 15 Mg/Ml Vial IM 02/24/22 08:54 15 mg ONCE ONE Administration Medical Decision Making Medical Decision Making [facility] Narrative: Patient is a 51 year old assigned female at with a history of GERD presenting to the emergency department today with a cough and chest wall pain. Patient's physical exam was unremarkable. Patient's blood work was unremarkable. Patient's chest x-ray showed no acute process. Patient's COVID-19 swab was positive. Patient's clinical presentation is consistent with COVID-19 however, given the patient having a productive cough, her age, and her overall presentation, will cover for super-imposed pneumonia with doxycycline. I explained my physical exam findings as well as all test results to the patient. I answered all questions asked by the patient. I stressed the importance of the patient taking her medication as prescribed. I stressed the importance of the patient following up with her primary care provider. I stressed the importance of the patient returning to the emergency department immediately if her symptoms were to worsen or if she were to develop any dizziness, shortness of breath, difficulty breathing, chest pain, blurry vision, loss of vision, nausea, vomiting, abdominal pain, fever, chills, back pain, or any other complaints. Patient verbalized agreement and understanding with this treatment plan and discharge. Differential Diagnosis Differential Diagnoses: The differential diagnosis associated with the presentation includes COVID-19, influenza, pneumonia Lab Data MDM Lab Attestation statement: I reviewed the patient's lab results. 02/24/22 09:21 02/24/22 09:21 Labs: Lab Results 02/24/22 02/24/22 02/24/22 Range/Units 09:21 09:21 09:21 WBC 6.7 (4.8-10.8) X10*3/uL RBC 4.60 (4.20-5.50) X10*6/uL Hgb 14.7 (12.0-16.0) g/dl Hct 42.3 (37.0-47.0) % MCV 92.0 (80.0-98.0) fL MCH 32.0 (27.0-33.0) pg MCHC 34.8 (31.0-35.0) g/dl RDW 13.2 (11.0-16.0) % Plt Count 301 (160-400) X10*3/uL MPV 8.8 L (9.4-12.3) fL Immature Gran % (Auto) 0.4 (0.0-0.4) % Neut % (Auto) 51.4 (45-73) % Lymph % (Auto) 37.5 (20-40) % Zapata % (Auto) 8.2 (2-11) % Eos % (Auto) 1.9 (0-4) % Baso % (Auto) 0.6 (0-2) % Lymph # (Auto) 2.5 (1.2-4.9) X10*3/uL Zapata # (Auto) 0.6 (0.1-1.2) X10*3/uL Eos # (Auto) 0.1 (0.0-0.4) X10*3/uL Baso # (Auto) 0.0 (0.0-0.2) X10*3/uL Abs Immat Gran (auto) 0.03 (0.00-0.03) X10*3/uL Absolute Neuts (auto) 3.5 (2.0-8.3) x10*3/uL Absolute Nucleated RBC 0.000 (0.0-0.012) X10*3/uL Nucleated RBC % (auto) 0.0 (0.0-0.2) /100WBC Sodium 139 (135-145) mmol/L Potassium 4.1 D (3.3-5.1) mmol/L Chloride 110 H (96-108) mmol/L Carbon Dioxide 22 (22-29) mmol/L Anion Gap 11 L (12-20) BUN 11 (9-16) mg/dL Creatinine 0.58 (0.5-1.4) mg/dL Estim Creat Clear Calc 104.6 Estimated GFR > 60 Random Glucose 96 (60-115) mg/dL Calcium 9.5 (8.4-10.2) mg/dL Magnesium 2.1 (1.6-2.6) mg/dL Total Bilirubin 0.3 (0.0-1.0) mg/dL AST 16 (5-31) U/L ALT 22 (0-31) U/L Alkaline Phosphatase 63 (39-117) U/L Troponin I High Sens < 3.5 (<3.5-17.0) ng/L B-Natriuretic Peptide (<100) pg/mL Total Protein 6.9 (6.5-8.0) g/dL Albumin 4.4 (3.5-5.0) g/dL Influenza Type A (PCR) (Negative) Influenza Type B (PCR) (Negative) RSV RNA Qual (PCR) (Negative) SARS-CoV-2 RNA (RT-PCR) (Negative) 02/24/22 02/24/22 Range/Units 09:21 09:21 WBC (4.8-10.8) X10*3/uL RBC (4.20-5.50) X10*6/uL Hgb (12.0-16.0) g/dl Hct (37.0-47.0) % MCV (80.0-98.0) fL MCH (27.0-33.0) pg MCHC (31.0-35.0) g/dl RDW (11.0-16.0) % Plt Count (160-400) X10*3/uL MPV (9.4-12.3) fL Immature Gran % (Auto) (0.0-0.4) % Neut % (Auto) (45-73) % Lymph % (Auto) (20-40) % Zapata % (Auto) (2-11) % Eos % (Auto) (0-4) % Baso % (Auto) (0-2) % Lymph # (Auto) (1.2-4.9) X10*3/uL Zapata # (Auto) (0.1-1.2) X10*3/uL Eos # (Auto) (0.0-0.4) X10*3/uL Baso # (Auto) (0.0-0.2) X10*3/uL Abs Immat Gran (auto) (0.00-0.03) X10*3/uL Absolute Neuts (auto) (2.0-8.3) x10*3/uL Absolute Nucleated RBC (0.0-0.012) X10*3/uL Nucleated RBC % (auto) (0.0-0.2) /100WBC Sodium (135-145) mmol/L Potassium (3.3-5.1) mmol/L Chloride (96-108) mmol/L Carbon Dioxide (22-29) mmol/L Anion Gap (12-20) BUN (9-16) mg/dL Creatinine (0.5-1.4) mg/dL Estim Creat Clear Calc Estimated GFR Random Glucose (60-115) mg/dL Calcium (8.4-10.2) mg/dL Magnesium (1.6-2.6) mg/dL Total Bilirubin (0.0-1.0) mg/dL AST (5-31) U/L ALT (0-31) U/L Alkaline Phosphatase (39-117) U/L Troponin I High Sens (<3.5-17.0) ng/L B-Natriuretic Peptide 20 (<100) pg/mL Total Protein (6.5-8.0) g/dL Albumin (3.5-5.0) g/dL Influenza Type A (PCR) NEGATIVE (Negative) Influenza Type B (PCR) NEGATIVE (Negative) RSV RNA Qual (PCR) NEGATIVE (Negative) SARS-CoV-2 RNA (RT-PCR) POSITIVE A (Negative) Radiology Impression Discussion of test interpretation with radiology: I have reviewed the radiologist's reading. Radiologist Impression: My interpretation is in agreement with the radiologist's impression of this imaging study. EXAMINATION: XR CHEST CLINICAL INFORMATION: Chest pain. COMPARISON: February 02, 2022. TECHNIQUE: 2 views of the chest were obtained. FINDINGS: No significant abnormality is noted involving the heart, lungs, mediastinum, bony thorax or soft tissues. Status post cholecystectomy. XR/XR chest 2V IMPRESSION: Unremarkable examination. Dictated By: Robert Mendoza Signed By: Electronically signed by Robert?Reji 02/24/22 1033 Discharge Plan Discharge Clinical Impression: COVID-19 Patient Disposition: Home, Self-Care Instructions: COVID-19 (Coronavirus Disease 2019) (ED) Additional Instructions: Follow up with your primary care provider. Return to the emergency department immediately if your symptoms worsen or if you develop any dizziness, shortness of breath, difficulty breathing, chest pain, blurry vision, loss of vision, nausea, vomiting, abdominal pain, fever, chills, back pain, or any other complaints. Willow un seguimiento con rai proveedor de atenci?n primaria. Regrese a la mariella de emergencias de inmediato si joselyn s?ntomas empeoran o si presenta mareos, dificultad para respirar, dolor de pecho, visi?n borrosa, p?rdida de la visi?n, n?useas, v?mitos, dolor abdominal, fiebre, escalofr?os, dolor de espalda o cualquier otras quejas. Prescriptions: New benzonatate 100 mg capsule 100 mg PO BID PRN (Reason: cough) 7 Days Qty: 14 0RF doxycycline hyclate 100 mg tablet 100 mg PO BID 7 Days Qty: 14 0RF No Action quetiapine 25 mg tablet 1 tab PO QAM atorvastatin 20 mg tablet 1 tab PO BEDTIME quetiapine 100 mg tablet 1 tab PO BEDTIME lidocaine 5 % adhesive patch,medicated 1 patch topical DAILY sertraline 25 mg tablet 1 tab PO QAM oxcarbazepine 600 mg tablet 1 tab PO BID nabumetone 500 mg tablet 1 tab PO BID cholecalciferol (vitamin D3) [Vitamin D3] 50 mcg (2,000 unit) tablet 1 tab PO DAILY ondansetron 4 mg tablet,disintegrating 4 mg PO Q8H PRN (Reason: nausea and vomiting) Qty: 20 0RF cyclobenzaprine 10 mg tablet 10 mg PO TID Qty: 10 0RF naproxen [Naprosyn] 500 mg tablet 500 mg PO BID Qty: 20 0RF simethicone [Gas Relief (simethicone)] 180 mg capsule 180 mg PO .Q.i.d. Qty: 120 4RF hydrocortisone [Proctosol HC] 2.5 % cream with perineal applicator 1 appl GA BID Qty: 30 3RF Linzess 72 mcg capsule 72 mcg PO QAM 30 Days Qty: 30 6RF Rx Instructions: Stop Amitiza pt had bad s/e omeprazole 20 mg capsule,delayed release(DR/EC) 20 mg PO BID Qty: 60 6RF Referrals: Mirian Altamirano, TELEPH[employer] ENGINEER [Primary Care Provider] - Interventions: Admission Worksheet (ED) Last Done: 02/24/22 10:07 ED Discharge Assessment Last Done: 02/24/22 10:30 Discharge Date/Time: 02/24/22 10:31 Print Language: Surinamese
[2022-02-24 08:50] VITALS: BP 138/70; PULSE 67; RESP 18; TEMP 36.8; O2SAT 98; BMI 24.9
--- NOTE | 2022-02-24 08:53 | ECG_ITS ---
Test Reason : CHEST PAIN Blood Pressure : / mmHG Vent. Rate : 066 BPM Atrial Rate : 066 BPM P-R Int : 158 ms QRS Dur : 084 ms QT Int : 396 ms P-R-T Axes : 062 005 -02 degrees QTc Int : 415 ms Normal sinus rhythm Low voltage QRS Borderline ECG When compared with ECG of 02-FEB-2022 06:16, Nonspecific T wave abnormality no longer evident in Anterior leads Referred By: Ani Linda Electronically Signed By:Jorge Hines
--- NOTE | 2022-02-24 09:06 | PC.NURSE ---
pt reports bilat flank pain, chest discomfort on inhalation, productive cough yellowish , sob x2 days. half pack daily smoker for many years. no exposure to anyone sick, no one sick in household. no fever/abd pain/n/v/patino/dizziness.
[2022-02-24 09:25] LABS: MANUAL DIFF FLAG NO
[2022-02-24 09:36] LABS: Basophils Percent Auto 0.6 % (0-2); Eosinophils Absolute Auto 0.1 X10*3/uL (0.0-0.4); Eosinophils Percent Auto 1.9 % (0-4); Hematocrit 42.3 % (37.0-47.0); Hemoglobin 14.7 g/dl (12.0-16.0); Imm Gran Abs Auto 0.03 X10*3/uL (0.00-0.03); Imm Gran Pct Auto 0.4 % (0.0-0.4); Lymphocytes Absolute Auto 2.5 X10*3/uL (1.2-4.9); Lymphocytes Percent Auto 37.5 % (20-40); Mean Corpuscular HGB Conc 34.8 g/dl (31.0-35.0); Mean Platelet Volume 8.8 fL (9.4-12.3); Monocytes Absolute Auto 0.6 X10*3/uL (0.1-1.2); Monocytes Percent Auto 8.2 % (2-11); Neutrophils Absolute Auto 3.5 x10*3/uL (2.0-8.3); Neutrophils Percent Auto 51.4 % (45-73); Platelet Count 301 X10*3/uL (160-400); Red Cell Distribution Width 13.2 % (11.0-16.0); White Blood Count 6.7 X10*3/uL (4.8-10.8)
[2022-02-24] MEDS: Ketorolac Tromethamine 15 MG/ML VIAL IM (09:44)
[2022-02-24] MEDS: Benzonatate 100 MG CAPSULE PO (09:44)
[2022-02-24 09:45] LABS: Alanine Aminotransferase 22 U/L (0-31); Albumin Level 4.4 g/dL (3.5-5.0); Alkaline Phosphatase 63 U/L (39-117); Anion Gap 11 (12-20); Aspartate Amino Transferase 16 U/L (5-31); Bilirubin Total 0.3 mg/dL (0.0-1.0); Blood Urea Nitrogen 11 mg/dL (9-16); Calcium 9.5 mg/dL (8.4-10.2); Carbon Dioxide 22 mmol/L (22-29); Chloride 110 mmol/L (96-108); Creatinine Clr Calc Pharmacy 104.6; Estimated Glomerular Filt Rate > 60; Glucose Random 96 mg/dL (60-115); Magnesium 2.1 mg/dL (1.6-2.6); Potassium 4.1 mmol/L (3.3-5.1); Sodium 139 mmol/L (135-145); Total Protein 6.9 g/dL (6.5-8.0)
[2022-02-24 09:50] LABS: B Type Natriuretic Peptide 20 pg/mL (<100)
[2022-02-24 10:01] LABS: Troponin-I High Sensitivity < 3.5 ng/L (<3.5-17.0)
[2022-02-24 10:05] LABS: Influenza A PCR NEGATIVE (Negative); Influenza B PCR NEGATIVE (Negative); Resp Syncy Virus RNA Qual PCR NEGATIVE (Negative); SARS COV2 PCR INHOUSE POSITIVE (Negative)
== END 2022-02-24 10:31 | disposition home or self-care (01) ==
PROVIDERS: Physician Assistant Medical; Emergency Provider Student in an Organized Health Care Education/Training Program; PCP Nurse Practitioner Primary Care
DX: U07.1 COVID-19 (principal); K21.9 Gastro-esophageal reflux disease without esophagitis; C18.9 Malignant neoplasm of colon, unspecified; F17.210 Nicotine dependence, cigarettes, uncomplicated; F12.90 Cannabis use, unspecified, uncomplicated; Z79.02 Long term (current) use of antithrombotics/antiplatelets; Z79.899 Other long term (current) drug therapy
CPT/HCPCS: 0241U; 71046; 80053; 83735; 83880; 84484; 85025; 93005; 96372; 99284; 99285; J1885

== ENCOUNTER 2022-03-02 08:29 | Emergency (ER) | payer MEDICAID, SELFPAY ==
--- NOTE | ~2022-03-02 | XR_ITS ---
EXAMINATION: XR CHEST CLINICAL INFORMATION: Cough COMPARISON: 02/24/2022 TECHNIQUE: 2 views of the chest were obtained. FINDINGS: Once again, no significant abnormality is noted involving the heart, lungs, mediastinum, bony thorax or soft tissues. XR/XR chest 2V IMPRESSION: Normal chest radiograph
[2022-03-02 08:49] VITALS: BP 133/61; PULSE 80; RESP 20; TEMP 36.5; O2SAT 96; BMI 24.0
--- NOTE | 2022-03-02 09:59 | ED.GENADULT ---
HPI - General Adult General Chief complaint: Back Pain/Injury Stated complaint: back pain vomiting diff breathing Time Seen by Provider: 03/02/22 09:48 Source: patient Mode of arrival: ambulatory Limitations: no limitations History of Present Illness HPI narrative: 51-year-old female recently diagnosed with COVID pneumonia, came in for increases shortness of breath and left upper back pain with taking a deep breath, no fever, no chills. Patient was seen in the emergency department diagnosed positive for COVID-19 patient also has a questionable pneumonia was sent home on doxycycline patient taking the medication as instructed but still have left upper back pain more with taking a deep breath or holding her breath. Related Data Home Medications Medication Instructions Recorded Confirmed atorvastatin 20 mg tablet 1 tab PO BEDTIME 09/04/20 12/06/20 cholecalciferol (vitamin D3) 50 1 tab PO DAILY 09/04/20 12/06/20 mcg (2,000 unit) tablet (Vitamin D3) lidocaine 5 % topical patch 1 patch topical DAILY 09/04/20 12/06/20 nabumetone 500 mg tablet 1 tab PO BID 09/04/20 12/06/20 oxcarbazepine 600 mg tablet 1 tab PO BID 09/04/20 12/06/20 quetiapine 100 mg tablet 1 tab PO BEDTIME 09/04/20 12/06/20 quetiapine 25 mg tablet 1 tab PO QAM 09/04/20 12/06/20 sertraline 25 mg tablet 1 tab PO QAM 09/04/20 12/06/20 Previous Rx's Medication Instructions Recorded simethicone 180 mg capsule (Gas 180 mg PO .Q.i.d. #120 caps 04/08/20 Relief (simethicone)) ondansetron 4 mg disintegrating 4 mg PO Q8H PRN nausea and 12/06/20 tablet vomiting #20 tabs cyclobenzaprine 10 mg tablet 10 mg PO TID #10 tabs 03/10/21 naproxen 500 mg tablet (Naprosyn) 500 mg PO BID #20 tabs 03/10/21 hydrocortisone 2.5 % topical cream 1 appl [place] BID hemorrhoids #30 grams 07/04/21 with perineal applicator (Proctosol HC) linaclotide 72 mcg capsule 72 mcg PO QAM 30 days #30 caps 07/04/21 (Linzess) omeprazole 20 mg capsule,delayed 20 mg PO BID #60 caps 10/03/21 release benzonatate 100 mg capsule 100 mg PO BID PRN cough 7 days #14 02/24/22 caps doxycycline hyclate 100 mg tablet 100 mg PO BID 7 days #14 tabs 02/24/22 Allergies Allergy/AdvReac Type Severity Reaction Status Date / Time aspirin [ASA] AdvReac Mild BRUISES Verified 02/02/22 06:09 Review of Systems Review of Systems: All other systems are reviewed and are negative Constitutional: Reports as per HPI and Reports no additional constitutional complaints Eyes: Reports as per HPI and Reports no additional eye complaints Reports system reviewed and no additional complaints, except as documented Cardiovascular: Reports as per HPI and Reports no additional cardiovascular complaints Respiratory: Reports as per HPI and Reports no additional respiratory complaints Gastrointestinal: Reports as per HPI and Reports no additional gastrointestinal complaints Genitourinary: Reports no additional female genitourinary complaints Musculoskeletal: Reports no additional musculoskeletal complaints Skin/Breast: Reports system reviewed and no additional complaints, except as docu Psychiatric: Reports no additional psychiatric complaints Endocrine: Reports no additional endocrine complaints Hematologic/Lymphatic: Reports no additional hematologic/lymphatic complaints Allergic/Immunologic: Reports no additional allergic/immunologic complaints Reports system reviewed and no additional complaints, except as documented and Reports Abnormal speech present PMFSH Past Medical History Medical History Anemia Chronic right shoulder pain Colon cancer Colon cancer screening Depression GERD (gastroesophageal reflux disease) Smoker Surgical History History of colon resection History of dilation and curettage History of excision of lesion History of exploratory laparotomy Hx of section Hx of cholecystectomy Hx of colonoscopy Hx of foot surgery Hx of hysterectomy Family History Family History Father FH: prostate cancer Paternal Aunt Breast cancer Social History Social History Household Members: Spouse Are you a primary career development coordinator/teacher to a significant other at home: No Do you presently have visiting nurse or other home services: No Alcohol intake: never Patient Tobacco Use Status: Current everyday Tobacco user Tobacco use type: Cigarette Cigarette Packs Per Day: 0.5 Cigarettes Per Day: 10.0 Years Smoked: ~30 Substance Use Type: Marijuana Advance Directives: No Advance Directives Information Provided: Yes Physical Exam ED Vital Signs: Vital Signs - 24 hr 03/02/22 08:49 03/02/22 10:36 03/02/22 11:16 Temperature 97.7 F Pulse Rate 80 59 60 Respiratory Rate 20 16 16 Blood Pressure 133/61 125/68 127/78 Pulse Oximetry 96 99 98 Oxygen Delivery Method Room Air Room Air Room Air BMI result Body Mass Index 24.0 Vital signs have been reviewed as appeared to be correct. Blood pressure normal. Heart rate normal. Respiration rate normal. Temperature normal. Oxygen saturation normal. Appearance: Alert. Oriented X3. No acute distress. Head: Normal external exam. Normocephalic. Atraumatic. No Vogel signs noted. No raccoon eyes noted Eyes: PERRLA. EOMI. Conjunctiva and sclera normal. Eyelids normal. ENT: TM's Normal. Pharynx normal. Uvula midline. Moist mucous membranes. No trismus noted. No drooling noted. No muffled voice noted. Neck: Normal inspection. Neck supple. FROM. No adenopathy. Thyroid Normal. No meningeal signs. No neck mass noted. CVS: Normal heart rate and rhythm. Heart sound normal. No murmurs noted. Pulses normal throughout. Respiratory: No respiratory distress. Painless inspiration. Breath sounds normal. No wheezes/rales/rhonchi noted. Chest nontender. No accessory muscle usage noted or decreased air movement noted. Abdomen: Soft and nontender. Bowel sounds normal in all 4 quadrants. No distention noted. No organomegaly noted. No visible injury noted. Back: No CVA tenderness. Full range of motion noted. Skin: Skin warm and dry. Normal skin color. Normal skin turgor. No rashes/lesions/lacerations noted. Extremities: No lower extremity edema. Extremities exhibit normal range of motion. Extremities nontender. Neuro: Oriented X 3. Cranial nerve exam: II-XII are grossly intact No motor deficit. No sensory deficit. Reflexes normal. Course Course Course Narrative: 51-year-old female recently diagnosed with COVID and pneumonia patient just finished a course of doxycycline complaining of pleuritic chest pain on the left upper chest area, no risk for PE patient has negative D-dimer with a normal O2 sat and a normal respiratory rate patient was instructed to take ibuprofen if needed for pain. Medications Administered Discontinued Medications Generic Name Dose Route Start Last Admin Trade Name Kandi PRN Reason Stop Dose Admin Ibuprofen 800 mg 03/02/22 09:58 03/02/22 10:43 Ibuprofen 800 Mg Tablet PO 03/02/22 09:59 800 mg ONCE ONE Administration Medical Decision Making Differential Diagnosis Differential Diagnoses: The differential diagnosis associated with the presentation includes Bacterial pneumonia, pleurisy, pulmonary embolism, pneumothorax, pleural effusion. Lab Data MDM Lab Attestation statement: I reviewed the patient's lab results. 03/02/22 10:25 03/02/22 10:25 Labs: Lab Results 03/02/22 03/02/22 03/02/22 Range/Units 10:25 10:25 10:42 WBC 8.2 (4.8-10.8) X10*3/uL RBC 4.84 (4.20-5.50) X10*6/uL Hgb 14.9 (12.0-16.0) g/dl Hct 44.2 (37.0-47.0) % MCV 91.3 (80.0-98.0) fL MCH 30.8 (27.0-33.0) pg MCHC 33.7 (31.0-35.0) g/dl RDW 13.2 (11.0-16.0) % Plt Count 304 (160-400) X10*3/uL MPV 8.9 L (9.4-12.3) fL Immature Gran % (Auto) 0.5 H (0.0-0.4) % Neut % (Auto) 56.1 (45-73) % Lymph % (Auto) 35.1 (20-40) % Humphreys % (Auto) 6.0 (2-11) % Eos % (Auto) 1.6 (0-4) % Baso % (Auto) 0.7 (0-2) % Lymph # (Auto) 2.9 (1.2-4.9) X10*3/uL Humphreys # (Auto) 0.5 (0.1-1.2) X10*3/uL Eos # (Auto) 0.1 (0.0-0.4) X10*3/uL Baso # (Auto) 0.1 (0.0-0.2) X10*3/uL Abs Immat Gran (auto) 0.04 H (0.00-0.03) X10*3/uL Absolute Neuts (auto) 4.6 (2.0-8.3) x10*3/uL Absolute Nucleated RBC 0.000 (0.0-0.012) X10*3/uL Nucleated RBC % (auto) 0.0 (0.0-0.2) /100WBC D-Dimer High Sensitivty < 150 NG/ML Sodium 140 (135-145) mmol/L Potassium 4.7 (3.3-5.1) mmol/L Chloride 106 (96-108) mmol/L Carbon Dioxide 25 (22-29) mmol/L Anion Gap 14 (12-20) BUN 13 (9-16) mg/dL Creatinine 0.65 (0.5-1.4) mg/dL Estim Creat Clear Calc 86.4 Estimated GFR > 60 Random Glucose 89 (60-115) mg/dL Calcium 10.0 (8.4-10.2) mg/dL Independent Interpretation I performed an independent interpretation of an: Plain X-Ray (Chest: No acute pathology.) Radiology Impression Discussion of test interpretation with radiology: I have reviewed the radiologist's reading. Discharge Plan Discharge Clinical Impression: Pleurisy Patient Disposition: Home, Self-Care Instructions: Pleurisy (ED) Additional Instructions: Take [id number] ibuprofen 200 mg tablet every 6 hours if needed for pain. Prescriptions: No Action quetiapine 25 mg tablet 1 tab PO QAM atorvastatin 20 mg tablet 1 tab PO BEDTIME quetiapine 100 mg tablet 1 tab PO BEDTIME lidocaine 5 % adhesive patch,medicated 1 patch topical DAILY sertraline 25 mg tablet 1 tab PO QAM oxcarbazepine 600 mg tablet 1 tab PO BID nabumetone 500 mg tablet 1 tab PO BID cholecalciferol (vitamin D3) [Vitamin D3] 50 mcg (2,000 unit) tablet 1 tab PO DAILY ondansetron 4 mg tablet,disintegrating 4 mg PO Q8H PRN (Reason: nausea and vomiting) Qty: 20 0RF cyclobenzaprine 10 mg tablet 10 mg PO TID Qty: 10 0RF naproxen [Naprosyn] 500 mg tablet 500 mg PO BID Qty: 20 0RF benzonatate 100 mg capsule 100 mg PO BID PRN (Reason: cough) 7 Days Qty: 14 0RF doxycycline hyclate 100 mg tablet 100 mg PO BID 7 Days Qty: 14 0RF simethicone [Gas Relief (simethicone)] 180 mg capsule 180 mg PO .Q.i.d. Qty: 120 4RF hydrocortisone [Proctosol HC] 2.5 % cream with perineal applicator 1 appl [place] BID Qty: 30 3RF Linzess 72 mcg capsule 72 mcg PO QAM 30 Days Qty: 30 6RF Rx Instructions: Stop Amitiza pt had bad s/e omeprazole 20 mg capsule,delayed release(DR/EC) 20 mg PO BID Qty: 60 6RF Referrals: Mirian Altamirano, ALARM FIELD TECHNICIAN [Primary Care Provider] -
[2022-03-02 10:29] LABS: MANUAL DIFF FLAG NO
[2022-03-02 10:30] LABS: Basophils Absolute Auto 0.1 X10*3/uL (0.0-0.2); Basophils Percent Auto 0.7 % (0-2); Eosinophils Absolute Auto 0.1 X10*3/uL (0.0-0.4); Eosinophils Percent Auto 1.6 % (0-4); Hematocrit 44.2 % (37.0-47.0); Hemoglobin 14.9 g/dl (12.0-16.0); Imm Gran Abs Auto 0.04 X10*3/uL (0.00-0.03); Imm Gran Pct Auto 0.5 % (0.0-0.4); Lymphocytes Absolute Auto 2.9 X10*3/uL (1.2-4.9); Lymphocytes Percent Auto 35.1 % (20-40); Mean Corpuscular HGB Conc 33.7 g/dl (31.0-35.0); Mean Corpuscular Hemoglobin 30.8 pg (27.0-33.0); Mean Corpuscular Volume 91.3 fL (80.0-98.0); Mean Platelet Volume 8.9 fL (9.4-12.3); Monocytes Absolute Auto 0.5 X10*3/uL (0.1-1.2); Neutrophils Absolute Auto 4.6 x10*3/uL (2.0-8.3); Neutrophils Percent Auto 56.1 % (45-73); Platelet Count 304 X10*3/uL (160-400); Red Blood Count 4.84 X10*6/uL (4.20-5.50); Red Cell Distribution Width 13.2 % (11.0-16.0); White Blood Count 8.2 X10*3/uL (4.8-10.8)
[2022-03-02 10:36] VITALS: BP 125/68; PULSE 59; RESP 16; O2SAT 99
[2022-03-02] MEDS: Ibuprofen 800 MG TABLET PO (10:43)
[2022-03-02 10:50] LABS: Anion Gap 14 (12-20); Blood Urea Nitrogen 13 mg/dL (9-16); Carbon Dioxide 25 mmol/L (22-29); Chloride 106 mmol/L (96-108); Creatinine Clr Calc Pharmacy 86.4; Estimated Glomerular Filt Rate > 60; Glucose Random 89 mg/dL (60-115); Potassium 4.7 mmol/L (3.3-5.1); Sodium 140 mmol/L (135-145)
[2022-03-02 11:10] LABS: D Dimer High Sensitivity < 150 NG/ML
[2022-03-02 11:16] VITALS: BP 127/78; PULSE 60; RESP 16; O2SAT 98
== END 2022-03-02 11:45 | disposition home or self-care (01) ==
PROVIDERS: Emergency Provider Emergency Medicine; PCP Nurse Practitioner Primary Care
DX: R09.1 Pleurisy (principal); R06.02 Shortness of breath; Z79.02 Long term (current) use of antithrombotics/antiplatelets; Z79.899 Other long term (current) drug therapy; F17.210 Nicotine dependence, cigarettes, uncomplicated; F12.90 Cannabis use, unspecified, uncomplicated
CPT/HCPCS: 36415; 71046; 80048; 85025; 85379; 99283

== ENCOUNTER → 2022-03-11 09:50 | Outpatient (BNVA) | payer MEDICAID, SELFPAY | PROVIDERS: PCP Nurse Practitioner Primary Care; Referring Provider Nurse Practitioner Primary Care; Visit Provider Internal Medicine Cardiovascular Disease | DX: R00.2 Palpitations (principal); R07.9 Chest pain, unspecified; I10 Essential (primary) hypertension | CPT/HCPCS: 99202 ==

== ENCOUNTER → 2022-03-16 13:49 | Outpatient (REF) | payer MEDICAID, SELFPAY ==
--- NOTE | 2022-03-16 14:13 | CA_ITS ---
Transthoracic Echocardiogram Patient (Last, First, Middle): Ciarra Finn, Gender: Female Date of : 1970 Age: 52 Procedure Date: 03/16/2022 Procedure Type: Transthoracic Echocardiogram Location: OP Height: 162.56 cm Weight: 65.77 kg BSA: 1.71 m2 Heart Rate: 66 bpm BP: 120 / 80 mmHg Wax Pot Tender: CL Christianson MD: Jorge Hines MD Portfolio Analyst: Jorge Hines MD Symptoms: R00.2 - Palpitations Study Quality: Adequate ECG Rhythm: Sinus Conclusions: - Normal left ventricular size, thickness, systolic function, and wall motion. The visually estimated ejection fraction is between 55-60%. Diastolic function is normal for age. - Normal right ventricular cavity size and systolic function. - There is mild mitral valve regurgitation. - There is mild tricuspid valve regurgitation. Findings Left Ventricle Normal left ventricular size, thickness, systolic function, and wall motion. The visually estimated ejection fraction is between 55-60%. Diastolic function is normal for age. Right Ventricle Normal right ventricular cavity size and systolic function. Atria Both atria are normal in size. Aortic Valve Normal aortic valve structure and function. There is no aortic valve stenosis. There is no aortic valve regurgitation. Mitral Valve The mitral valve appears normal. There is mild mitral valve regurgitation. There is no mitral valve stenosis. Pulmonic Valve The pulmonic valve is likely normal. Tricuspid Valve Normal tricuspid valve structure. There is mild tricuspid valve regurgitation. Normal right atrial pressure. There is no evidence of pulmonary hypertension. Great Vessels All visible segments of the aorta are normal in size. The visualized portions of the pulmonary artery and branches are normal. Venous The inferior vena cava is normal in size and collapses greater than 50% with inspiration. Pericardium/Pleural There is no evidence of pericardial effusion. Prior Study Comparison No prior study available for comparison. Measurements 2D Linear Measurements IVSd: 0.86 0.6-0.9/0.6-1.0 cm LVIDd: 4.50 3.9-5.3/4.2-5.9 cm LVIDd Index: 2.63 2.4-3.2/2.2-3.1 cm/m2 LVIDs: 2.86 2.0-3.6 cm LVPWd: 0.83 0.7-1.1 cm LA Diam: 3.10 2.7-3.8/3.0-4.0 cm LAIDs Index: 1.81 1.5-2.3 cm/m2 LV Mass: 151.89 67-162/88-224 g LV Mass Index: 88.83 43-95/49-115 g/m2 LVOT Diam: 1.80 3.0+(-)1.3 cm 2D Systolic Function EF 4C: 60.40 >55% EF 2C: 56.90 >55% EF BiP: 57.90 >55% Mitral Valve MV Pk E: 0.78 MV PK A: 0.92 MV Decel Time: 214.00 E/A: 0.80 E'Lateral: 9.14 E'Medial: 8.81 E/E' Med: 8.90 E/E' Lat: 8.60 PHT: 63.00 MVA PHT: 3.49 Decel Ripley: 3.66 Aortic Valve AoV Pk Sukhi: 1.34 AoV Mn Sukhi: 0.87 AoV VTI: 0.27 AoV Pk Grad: 7.00 Aov Mn Grad: 4.00 CONRAD Cont.VTI: 2.20 LVOT LVOT Pk Sukhi: 1.22 LVOT Mn Sukhi: 0.85 LVOT VTI: 0.23 LVOT Pk Grad: 6.00 LVOT Mn Grad: 3.00 LVOT Diam: 1.80 LVOT Area: 2.54 Diastolic Function MV Pk E: 0.78 MV Pk A: 0.92 E/A: 0.80 E'Medial: 8.81 E/E' Med: 8.90 E' Laterial: 9.14 E/E' Lat: 8.60 Right Ventricle TAPSE (mm): 19.50 TVS' Sukhi: 10.80 Tricuspid Valve TR Pk Sukhi: 2.36 TR Pk Grad: 22.00 RA Press: 3.00 RVSP: 25.00 Great Vessels Aorta Sinus of Valsalva: 3.10 2.0-3.5 cm Ao Asc: 2.90 2.1-3.4 cm Pulmonary Valve PV Pk Sukhi: 0.90 Peak PV Grad: 3.00 Updated in Other Vendor System with Status of Final Jorge Hines MD electronically signed on 03/19/2022 2:47:04 PM with status of Final
== END ==
LOC: HO.CARD 13:49
PROVIDERS: Visit Provider Internal Medicine Cardiovascular Disease
DX: R00.2 Palpitations (principal)
CPT/HCPCS: 93306

== ENCOUNTER → 2022-03-18 08:42 | Outpatient (REF) | payer MEDICAID, SELFPAY ==
--- NOTE | 2022-03-18 08:45 | HM_ITS ---
CARDIAC EVENT MONITOR Indication: Palpitations Technique: Patient was worked up to cardiac event monitor on 03/18/2022 for total period of 30 days. Compliance rate was about 55%. Quality of the data was adequate Findings: Baseline was normal sinus rhythm with no significant pauses or bradycardia noted. AV conduction appears satisfactory. Total isolated ventricular ectopy of 1% accounting for occasional PVCs Patient reported 11 times but symptoms reported only 1 time which chest pain. All of these episodes correlated with sinus rhythm Conclusion: 1. Baseline normal sinus rhythm with no pauses 2. Occasional isolated PVCs 3. Patient reported symptoms correlated with sinus rhythm MTDD
--- NOTE | 2022-03-18 08:45 | CA_ITS ---
Acquisition Time: 2022-03-18 08:54:56 Total Exercise Time: 00:06:17 Test Indications: R07.9 Chest Pain Medications: See H Protocol: TEOFILO Max HR: 127 BPM 76% of Pred: 166 BPM Max BP: 152/080 mmHG Max Work Load: 7.3 METS Exercise stress test with exercise 6 min 17 sec of Teofilo protocol, achieving 76% MPHR, with moderate sob and fatigue with need to stop, no chest discomfort, without arrythmia, with normotensive response to exercise, with nondiagnostic EKG for ischemia., with nonspecific T wave abnormalities noted. Test reviewed with Dr Hines Referred By: Jorge Hines Overread By: ELLEN LUU
== END ==
LOC: HO.CARD 08:42
PROVIDERS: Visit Provider Internal Medicine Cardiovascular Disease
DX: R07.9 Chest pain, unspecified (principal); R00.2 Palpitations
CPT/HCPCS: 93017; 93270

== ENCOUNTER 2022-04-16 08:06 | Outpatient (REF) | payer MEDICAID, SELFPAY ==
--- NOTE | ~2022-04-16 | MM_ITS ---
EXAMINATION: MM SCREENING DIGITAL BREAST TOMOSYNTHESIS, BILATERAL CLINICAL INFORMATION: Screening. Asymptomatic. The lifetime risk of breast cancer based on the Tyrer-Cuzick Model is 8.6%. COMPARISON: Mammography: April 10, 2021 and studies dating back to December 19, 2015 TECHNIQUE: Digital breast tomosynthesis is performed in both the craniocaudal and mediolateral oblique views along with computer-aided detection (CAD). Synthesized 2D images are generated from the tomosynthesis. FINDINGS: The breasts are heterogeneously dense, which may obscure small masses (ACR BI-RADS breast composition Category c). There are no significant masses, abnormal calcifications, or other abnormalities. MM/MM tomosynthesis screening BI IMPRESSION: No significant changes from prior exam. ASSESSMENT: BI-RADS 1: Negative RECOMMENDATION: Routine annual mammography screening. This patient's information was entered into a reminder system with a target due date for their next mammogram.
== END 2022-04-16 08:07 | disposition home or self-care (01) ==
LOC: HO.MAMMO 08:06
PROVIDERS: PCP Nurse Practitioner Primary Care; Visit Provider Nurse Practitioner Primary Care
DX: Z12.31 Encounter for screening mammogram for malignant neoplasm of breast (principal)
CPT/HCPCS: 77063; 77067

== ENCOUNTER 2022-04-16 13:51 | Outpatient (REF) | payer MEDICAID, SELFPAY ==
--- NOTE | ~2022-04-16 | US_ITS ---
EXAMINATION: US PELVIS CLINICAL INFORMATION: History of ovarian cysts; history of prior hysterectomy. COMPARISON: Pelvic ultrasound dated 10/10/2021. TECHNIQUE: Ultrasound of the pelvis is performed using both transabdominal and transvaginal transducers along with Doppler. Transvaginal imaging is performed due to inadequate visualization transabdominally. FINDINGS: Uterus: The uterus is surgically absent. Adnexa: Both ovaries are visualized. There is normal color flow to the adnexa. There is no ovarian torsion. There is a small amount free fluid adjacent to the right ovary. Right ovary measures 3.5 x 3.2 x 3.6 cm, volume 21.1 mL. The right ovary contains a 3.5 x 2.2 x 2.9 cm heterogeneous echotexture mass, with no associated color Doppler flow. There is an adjacent 2.3 x 1.5 x 1.7 cm benign, simple cyst. Left ovary measures 2.7 x 2.4 x 2.2 cm, volume 7.5 mL. The left ovary contains a 1.6 x 1.4 x 1.8, heterogeneous echotexture hemorrhagic cyst, with characteristic internal reticulated contents. US/US pelvic and transvaginal IMPRESSION: 1. There are bilateral ovarian cysts, as detailed. The dominant bilateral ovarian cysts are heterogeneous in echotexture and may represent a hemorrhagic cysts versus, less likely, endometriomas or dermoid tumors. As a precaution, repeat pelvic ultrasound examination is recommended in 6-12 weeks to ensure regression/resolution. 2. A small amount nonspecific free fluid seen adjacent to the right ovary. 3. The uterus is surgically absent.
== END 2022-04-16 13:52 | disposition home or self-care (01) ==
LOC: HO.US 13:51
PROVIDERS: PCP Nurse Practitioner Primary Care; Visit Provider Obstetrics & Gynecology
DX: N83.299 Other ovarian cyst, unspecified side (principal)
CPT/HCPCS: 76830; 76856

== ENCOUNTER 2022-04-29 08:08 | Outpatient (REF) | payer MEDICAID, SELFPAY ==
[2022-05-02 11:24] LABS: CA-125 7 U/mL (<35)
== END 2022-04-29 08:09 | disposition home or self-care (01) ==
LOC: HO.LAB 08:08
PROVIDERS: PCP Nurse Practitioner Primary Care; Visit Provider Obstetrics & Gynecology
DX: N83.299 Other ovarian cyst, unspecified side (principal)
CPT/HCPCS: 36415; 86304; 99212

== ENCOUNTER → 2022-05-06 15:11 | Outpatient (BNVA) | payer MEDICAID, SELFPAY | PROVIDERS: PCP Nurse Practitioner Primary Care; Visit Provider Physician Assistant | DX: M75.41 Impingement syndrome of right shoulder (principal) | CPT/HCPCS: 20610; 99212; J1040 ==

== ENCOUNTER → 2022-05-08 07:52 | Outpatient (BNVA) | payer MEDICAID, SELFPAY | PROVIDERS: PCP Nurse Practitioner Primary Care; Referring Provider Nurse Practitioner Primary Care; Visit Provider Nurse Practitioner | DX: K21.9 Gastro-esophageal reflux disease without esophagitis (principal); K59.00 Constipation, unspecified; R14.0 Abdominal distension (gaseous); K64.9 Unspecified hemorrhoids | CPT/HCPCS: 99212 ==

== ENCOUNTER 2022-05-29 12:36 | Outpatient (REF) | payer MEDICAID, SELFPAY ==
--- NOTE | ~2022-05-29 | XR_ITS ---
EXAMINATION: XR ANKLE, RIGHT CLINICAL INFORMATION: Ankle pain COMPARISON: None available. TECHNIQUE: AP, lateral, and mortise views of the right ankle. FINDINGS: Plate and screw fixation of the first metatarsal, suboptimally evaluated consider dedicated radiographs of the foot. No acute fracture or dislocation. Joint spaces are maintained. Soft tissues are unremarkable. No joint effusion. Well corticated osseous fragment adjacent to the medial malleolus may reflect sequelae of remote avulsion injury. XR/XR ankle RT min 3V IMPRESSION: 1. Plate and screw fixation of the first metatarsal, suboptimally evaluated consider dedicated radiographs of the foot. 2. No acute fracture or dislocation. Well corticated osseous fragment adjacent to the medial malleolus may reflect sequelae of remote avulsion injury.
== END 2022-05-29 12:37 | disposition home or self-care (01) ==
LOC: HO.HOSX 12:36
PROVIDERS: PCP Nurse Practitioner Primary Care; Visit Provider Physician Assistant
DX: S93.401A Sprain of unspecified ligament of right ankle, initial encounter (principal)
CPT/HCPCS: 73610; 99212

== ENCOUNTER 2022-06-15 07:55 | Emergency (ER) | payer MEDICAID, SELFPAY ==
--- NOTE | ~2022-06-15 | XR_ITS ---
EXAMINATION: XR CHEST CLINICAL INFORMATION: Productive cough COMPARISON: Previous chest x-ray most recent February 2022 TECHNIQUE: 2 views of the chest were obtained. FINDINGS: No significant abnormality is noted involving the heart, lungs, mediastinum, bony thorax or soft tissues. There are degenerative changes of the spine. XR/XR chest 2V IMPRESSION: No evidence for acute disease in the chest.
--- NOTE | 2022-06-15 07:59 | ECG_ITS ---
Test Reason : CP Blood Pressure : / mmHG Vent. Rate : 068 BPM Atrial Rate : 068 BPM P-R Int : 136 ms QRS Dur : 078 ms QT Int : 374 ms P-R-T Axes : 070 012 004 degrees QTc Int : 397 ms Normal sinus rhythm Possible Left atrial enlargement Borderline ECG When compared with ECG of 24-FEB-2022 08:59, No significant change was found Referred By: Generic ED Physician Electronically Signed By:CHRIS JOYCE MD
--- NOTE | 2022-06-15 08:17 | ED_ITS ---
HPI - Chest Pain General Chief Complaint: Chest Pain Stated Complaint: Chest pain/Back pain x3 days Time Seen by Provider: 06/15/22 08:05 Source: patient and old records reviewed Mode of arrival: ambulatory History of Present Illness HPI narrative: 52-year-old female with a past medical history of anemia, depression, GERD colon CA, cigarette smoker, presenting to the ED complaining of productive cough of deutsch phlegm, chest discomfort, back pain worse with coughing/deep breathing, and SOB x 3 days. Also reports subjective fever. Denies chills, abdominal pain, nausea/vomiting, hematuria, recent travel, sick contacts MD complaint: chest pain Related Data Home Medications Medication Instructions Recorded Confirmed cholecalciferol (vitamin D3) 50 1 tab PO DAILY 09/04/20 03/11/22 mcg (2,000 unit) tablet (Vitamin D3) atorvastatin 20 mg tablet 20 mg PO BEDTIME 03/11/22 03/11/22 clonazepam 0.5 mg tablet 0.25 mg PO DAILY PRN anxiety 03/11/22 03/11/22 nabumetone 500 mg tablet 500 mg PO BID 03/11/22 03/11/22 oxcarbazepine 600 mg tablet 600 mg PO BID 03/11/22 03/11/22 quetiapine 100 mg tablet 100 mg PO BEDTIME 03/11/22 03/11/22 quetiapine 25 mg tablet 25 mg PO QAM 03/11/22 03/11/22 Previous Rx's Medication Instructions Recorded naproxen 500 mg tablet (Naprosyn) 500 mg PO BID #20 tabs 03/10/21 hydrocortisone 2.5 % topical cream 1 appl RI BID hemorrhoids #30 grams 05/08/22 with perineal applicator (Proctosol HC) linaclotide 72 mcg capsule 72 mcg PO QAM 30 days #30 caps 05/08/22 (Linzess) omeprazole 20 mg capsule,delayed 20 mg PO BID #60 caps 05/08/22 release simethicone 180 mg capsule (Gas 180 mg PO .Q.i.d. #120 caps 05/08/22 Relief (simethicone)) albuterol sulfate 90 mcg/actuation 2 puff inhalation Q4-6H PRN 06/15/22 aerosol inhaler shortness of breath or wheezing #6.7 grams benzonatate 100 mg capsule 100 mg PO TID PRN cough #14 caps 06/15/22 prednisone 20 mg tablet 40 mg PO DAILY 5 days #10 tabs 06/15/22 Allergies Allergy/AdvReac Type Severity Reaction Status Date / Time aspirin [ASA] AdvReac Mild BRUISES Verified 06/15/22 08:33 Review of Systems Review of Systems: Constitutional: +subj Fever, No Chills, No Fatigue, No Malaise ENT/Mouth: No Hearing loss, No Ear Pain, No Nasal Congestion, No sore throat, No Rhinorrhea, No Swallowing Difficulty Eyes: No Eye Pain, No Swelling, No Redness, No Vision Changes Cardiovascular: + Chest Pain, + SOB, No Dyspnea on Exertion, No Orthopnea, No Edema, No Palpitations Respiratory: + Cough, + Sputum, No Wheezing, No Dyspnea Gastrointestinal: No Nausea, No Vomiting, No Diarrhea, No Constipation, No Abdominal pain Genitourinary: No Dysuria, No Urinary Frequency, No Hematuria, No Flank Pain Musculoskeletal: No joint pain, No Myalgias, No Joint Swelling Skin: No Skin Lesions, No rash Neuro: No Weakness, No Numbness, No Paresthesias Yes all other systems are reviewed and are negative Constitutional: Constitutional: Reports as per [facility] Past Medical History Attestation statement: The following information was validated with the patient. Medical History Anemia Chronic right shoulder pain Colon cancer Colon cancer screening Depression GERD (gastroesophageal reflux disease) Smoker Surgical History History of colon resection History of dilation and curettage History of excision of lesion History of exploratory laparotomy Hx of section Hx of cholecystectomy Hx of colonoscopy Hx of foot surgery Hx of hysterectomy Family History Family History Father FH: prostate cancer Paternal Aunt Breast cancer Social History Social History Household Members: Spouse Are you a primary lpn care manager to a significant other at home: No Do you presently have visiting nurse or other home services: No Alcohol intake: never Patient Tobacco Use Status: Current everyday Tobacco user Tobacco use type: Cigarette Cigarette Packs Per Day: 0.5 Cigarettes Per Day: 10.0 Years Smoked: 30 +/- Smoked in Last 30 Days: Yes Use of substances other than those prescribed or required for medical reasons: No Substance Use Type: Marijuana Advance Directives: No Advance Directives Information Provided: Yes Physical Exam Vital Signs: Vital Signs: Last Vital Signs Temp 97.8 F 06/15/22 10:41 Pulse 64 06/15/22 12:16 Resp 16 06/15/22 12:16 BP 127/73 06/15/22 12:16 Pulse Ox 98 06/15/22 10:41 O2 Del Method Room Air 06/15/22 10:41 BMI result Body Mass Index 23.1 Const: General: cooperative, healthy appearing and no acute distress Orientation/consciousness: patient oriented x3 Limitations: no limitations HEENT: Head: Yes normal to inspection and Yes atraumatic Ears: hearing grossly normal bilaterally General nose exam: Normal external nose present Face and sinus: Yes normal facial exam Eyes: General: appearance normal, both eyes and all related structures EOM: EOMs intact bilaterally Neck: Neck: Yes normal visual inspection and Yes no meningeal signs Chest: Chest palpation & inspection: normal inspection of the chest, no crepitus and no tenderness Resp: Effort & Inspection: normal respiratory effort and no respiratory distress Auscultation: clear to auscultation bilaterally, no crackles, no rhonchi and no wheezes Cardio: Rate: regular rate Heart sounds: S1 normal heart sound present and S2 normal heart sound present GI: Inspection: Yes normal to inspection Palpation (GI): Soft to palpation, nontender, no guarding and not rigid : General: Yes no CVA tenderness Back/Spine/Pelvis: Back: no CVA tenderness Skin: Rashes: no rashes Wounds: no wounds Neuro: General: patient oriented x3, tone normal and no meningeal signs Gait exam (Neuro): Normal gait present Extrem: General: Yes normal to inspection, Yes no pedal edema and Yes no calf tenderness Course Course Course Narrative: -no leukocytosis. Troponin WNL. D-dimer WNL. XR chest 2V IMPRESSION: No evidence for acute disease in the chest. -COVID & influenza negative Results discussed with patient including worrisome signs and symptoms and strict return precautions, and when to return to the emergency department. They verbalized understanding and feel safe for discharge at this time. Medical Decision Making Medical Decision Making MDM Narrative: 52-year-old female with a past medical history of anemia, depression, GERD colon CA, cigarette smoker, presenting to the ED complaining of productive cough of deutsch phlegm, chest discomfort, back pain worse with coughing/deep breathing, and SOB x 3 days. On exam vital signs stable, NAD, nontoxic appearing, lungs CTA, CP not reproducible, abdomen soft/nontender, no pedal edema. Concern for viral illness vs pneumonia vs PE. Lower suspicion for DVT, ACS, dissection, CHF Plan: EKG, labs, CXR, COVID/flu testing, re-evaluate Please refer to course for remaining clinical decision making, interpretation of labs/imaging results, and discussions with consultants and/or family members. Differential Diagnosis Differential Diagnoses: The differential diagnosis associated with the presentation includes As above Admission/Observation Consideration of admission/observation: Escalation of care including admission/observation considered Lab Data MDM Lab Attestation statement: I reviewed the patient's lab results. 06/15/22 09:03 06/15/22 09:03 Labs: Lab Results 06/15/22 06/15/22 06/15/22 Range/Units 09:03 09:03 09:03 WBC 9.7 (4.8-10.8) X10*3/uL RBC 4.90 (4.20-5.50) X10*6/uL Hgb 15.1 (12.0-16.0) g/dl Hct 44.9 (37.0-47.0) % MCV 91.6 (80.0-98.0) fL MCH 30.8 (27.0-33.0) pg MCHC 33.6 (31.0-35.0) g/dl RDW 13.1 (11.0-16.0) % Plt Count 305 (160-400) X10*3/uL MPV 8.7 L (9.4-12.3) fL Immature Gran % (Auto) 0.6 H (0.0-0.4) % Neut % (Auto) 63.5 (45-73) % Lymph % (Auto) 28.5 (20-40) % [place] % (Auto) 5.6 (2-11) % Eos % (Auto) 1.3 (0-4) % Baso % (Auto) 0.5 (0-2) % Lymph # (Auto) 2.8 (1.2-4.9) X10*3/uL [place] # (Auto) 0.5 (0.1-1.2) X10*3/uL Eos # (Auto) 0.1 (0.0-0.4) X10*3/uL Baso # (Auto) 0.1 (0.0-0.2) X10*3/uL Abs Immat Gran (auto) 0.06 H (0.00-0.03) X10*3/uL Absolute Neuts (auto) 6.1 (2.0-8.3) x10*3/uL Absolute Nucleated RBC 0.000 (0.0-0.012) X10*3/uL Nucleated RBC % (auto) 0.0 (0.0-0.2) /100WBC D-Dimer High Sensitivty < 150 NG/ML Sodium 141 (135-145) mmol/L Potassium 4.2 (3.3-5.1) mmol/L Chloride 109 H (96-108) mmol/L Carbon Dioxide 23 (22-29) mmol/L Anion Gap 13 (12-20) BUN 16 (9-16) mg/dL Creatinine 0.64 (0.5-1.4) mg/dL Estim Creat Clear Calc 86.7 Estimated GFR > 60 Random Glucose 87 (60-115) mg/dL Calcium 9.7 (8.4-10.2) mg/dL Total Bilirubin 0.7 (0.0-1.0) mg/dL Direct Bilirubin 0.2 (0.0-0.5) mg/dL AST 21 (5-31) U/L ALT 27 (0-31) U/L Alkaline Phosphatase 59 (39-117) U/L Troponin I High Sens (<3.5-17.0) ng/L B-Natriuretic Peptide (<100) pg/mL Total Protein 6.8 (6.5-8.0) g/dL Albumin 4.3 (3.5-5.0) g/dL COVID-19 ([facility]) (Negative) COVID-19 Clin Com Influenza Type A ([facility]) (Negative) Influenza A & B Note 06/15/22 06/15/22 06/15/22 Range/Units 09:03 09:03 09:03 WBC (4.8-10.8) X10*3/uL RBC (4.20-5.50) X10*6/uL Hgb (12.0-16.0) g/dl Hct (37.0-47.0) % MCV (80.0-98.0) fL MCH (27.0-33.0) pg MCHC (31.0-35.0) g/dl RDW (11.0-16.0) % Plt Count (160-400) X10*3/uL MPV (9.4-12.3) fL Immature Gran % (Auto) (0.0-0.4) % Neut % (Auto) (45-73) % Lymph % (Auto) (20-40) % [place] % (Auto) (2-11) % Eos % (Auto) (0-4) % Baso % (Auto) (0-2) % Lymph # (Auto) (1.2-4.9) X10*3/uL [place] # (Auto) (0.1-1.2) X10*3/uL Eos # (Auto) (0.0-0.4) X10*3/uL Baso # (Auto) (0.0-0.2) X10*3/uL Abs Immat Gran (auto) (0.00-0.03) X10*3/uL Absolute Neuts (auto) (2.0-8.3) x10*3/uL Absolute Nucleated RBC (0.0-0.012) X10*3/uL Nucleated RBC % (auto) (0.0-0.2) /100WBC D-Dimer High Sensitivty NG/ML Sodium (135-145) mmol/L Potassium (3.3-5.1) mmol/L Chloride (96-108) mmol/L Carbon Dioxide (22-29) mmol/L Anion Gap (12-20) BUN (9-16) mg/dL Creatinine (0.5-1.4) mg/dL Estim Creat Clear Calc Estimated GFR Random Glucose (60-115) mg/dL Calcium (8.4-10.2) mg/dL Total Bilirubin (0.0-1.0) mg/dL Direct Bilirubin (0.0-0.5) mg/dL AST (5-31) U/L ALT (0-31) U/L Alkaline Phosphatase (39-117) U/L Troponin I High Sens < 2.7 (<3.5-17.0) ng/L B-Natriuretic Peptide < 10 (<100) pg/mL Total Protein (6.5-8.0) g/dL Albumin (3.5-5.0) g/dL COVID-19 ([facility]) (Negative) COVID-19 Clin Com Influenza Type A ([facility]) Negative (Negative) Influenza A & B Note See Note 06/15/22 Range/Units 09:03 WBC (4.8-10.8) X10*3/uL RBC (4.20-5.50) X10*6/uL Hgb (12.0-16.0) g/dl Hct (37.0-47.0) % MCV (80.0-98.0) fL MCH (27.0-33.0) pg MCHC (31.0-35.0) g/dl RDW (11.0-16.0) % Plt Count (160-400) X10*3/uL MPV (9.4-12.3) fL Immature Gran % (Auto) (0.0-0.4) % Neut % (Auto) (45-73) % Lymph % (Auto) (20-40) % [place] % (Auto) (2-11) % Eos % (Auto) (0-4) % Baso % (Auto) (0-2) % Lymph # (Auto) (1.2-4.9) X10*3/uL [place] # (Auto) (0.1-1.2) X10*3/uL Eos # (Auto) (0.0-0.4) X10*3/uL Baso # (Auto) (0.0-0.2) X10*3/uL Abs Immat Gran (auto) (0.00-0.03) X10*3/uL Absolute Neuts (auto) (2.0-8.3) x10*3/uL Absolute Nucleated RBC (0.0-0.012) X10*3/uL Nucleated RBC % (auto) (0.0-0.2) /100WBC D-Dimer High Sensitivty NG/ML Sodium (135-145) mmol/L Potassium (3.3-5.1) mmol/L Chloride (96-108) mmol/L Carbon Dioxide (22-29) mmol/L Anion Gap (12-20) BUN (9-16) mg/dL Creatinine (0.5-1.4) mg/dL Estim Creat Clear Calc Estimated GFR Random Glucose (60-115) mg/dL Calcium (8.4-10.2) mg/dL Total Bilirubin (0.0-1.0) mg/dL Direct Bilirubin (0.0-0.5) mg/dL AST (5-31) U/L ALT (0-31) U/L Alkaline Phosphatase (39-117) U/L Troponin I High Sens (<3.5-17.0) ng/L B-Natriuretic Peptide (<100) pg/mL Total Protein (6.5-8.0) g/dL Albumin (3.5-5.0) g/dL COVID-19 ([facility]) Negative (Negative) COVID-19 Clin Com See Note Influenza Type A ([facility]) (Negative) Influenza A & B Note Independent Interpretation I performed an independent interpretation of an: EKG (EKG is normal sinus rhythm at a rate of 68. P.r.n. oval 136. QTC 397. No STEMI. No significant change when compared to priors) Radiology Impression Discussion of test interpretation with radiology: I have reviewed the radiologist's reading. External Record Review External record reviewed: Inpatient record, Office record, Outpatient record, Prior outpatient labs, Prior outpatient radiology, Primary care record and Outside ED record Discharge Plan Discharge Clinical Impression: Bronchitis Patient Disposition: Home, Self-Care Instructions: Acute Bronchitis (ED) Additional Instructions: Your blood work was reassuring. Her chest x-ray is unremarkable, no pneumonia you tested negative for COVID and flu Tessalon Perles for cough, take as needed Prednisone as a steroid use as prescribed In addition albuterol inhaler will help with shortness of breath/bronchospasms Please follow-up with her doctor An an?lisis de steve fue tranquilizador. An radiograf?a de t?rax es normal, sin neumon?a. tanner negativo para COVID y gripe Tessalon Perles para la tos, suad seg?n sea necesario Prednisona chuy un uso de esteroides seg?n lo prescrito Adem?s, el inhalador de albuterol ayudar? con la dificultad para respirar/bronco espasmos Por favor, abbi un seguimiento con an m?dico. Prescriptions: New prednisone 20 mg tablet 40 mg PO DAILY 5 Days Qty: 10 0RF benzonatate 100 mg capsule 100 mg PO TID PRN (Reason: cough) Qty: 14 0RF albuterol sulfate 90 mcg/actuation HFA aerosol inhaler 2 puff inhalation Q4-6H PRN (Reason: shortness of breath or wheezing) Qty: 6.7 0RF No Action cholecalciferol (vitamin D3) [Vitamin D3] 50 mcg (2,000 unit) tablet 1 tab PO DAILY atorvastatin 20 mg tablet 20 mg PO BEDTIME nabumetone 500 mg tablet 500 mg PO BID oxcarbazepine 600 mg tablet 600 mg PO BID quetiapine 25 mg tablet 25 mg PO QAM quetiapine 100 mg tablet 100 mg PO BEDTIME naproxen [Naprosyn] 500 mg tablet 500 mg PO BID Qty: 20 0RF clonazepam 0.5 mg tablet 0.25 mg PO DAILY PRN (Reason: anxiety) omeprazole 20 mg capsule,delayed release(DR/EC) 20 mg PO BID Qty: 60 6RF Linzess 72 mcg capsule 72 mcg PO QAM 30 Days Qty: 30 6RF Rx Instructions: Stop Amitiza pt had bad s/e simethicone [Gas Relief (simethicone)] 180 mg capsule 180 mg PO .Q.i.d. Qty: 120 4RF hydrocortisone [Proctosol HC] 2.5 % cream with perineal applicator 1 appl RI BID Qty: 30 3RF Referrals: Mirian Altamirano NP [Primary Care Provider] - Interventions: ED Discharge Assessment Last Done: 06/15/22 12:17 Discharge Date/Time: 06/15/22 12:17 Print Language: Armenian
[2022-06-15 08:31] VITALS: BP 138/78; PULSE 61; RESP 16; TEMP 36.9; O2SAT 97; BMI 23.1
[2022-06-15 09:19] LABS: MANUAL DIFF FLAG NO
[2022-06-15 09:23] LABS: Basophils Absolute Auto 0.1 X10*3/uL (0.0-0.2); Basophils Percent Auto 0.5 % (0-2); Eosinophils Absolute Auto 0.1 X10*3/uL (0.0-0.4); Eosinophils Percent Auto 1.3 % (0-4); Hematocrit 44.9 % (37.0-47.0); Hemoglobin 15.1 g/dl (12.0-16.0); Imm Gran Abs Auto 0.06 X10*3/uL (0.00-0.03); Imm Gran Pct Auto 0.6 % (0.0-0.4); Lymphocytes Absolute Auto 2.8 X10*3/uL (1.2-4.9); Lymphocytes Percent Auto 28.5 % (20-40); Mean Corpuscular HGB Conc 33.6 g/dl (31.0-35.0); Mean Corpuscular Hemoglobin 30.8 pg (27.0-33.0); Mean Corpuscular Volume 91.6 fL (80.0-98.0); Mean Platelet Volume 8.7 fL (9.4-12.3); Monocytes Absolute Auto 0.5 X10*3/uL (0.1-1.2); Monocytes Percent Auto 5.6 % (2-11); Neutrophils Absolute Auto 6.1 x10*3/uL (2.0-8.3); Neutrophils Percent Auto 63.5 % (45-73); Platelet Count 305 X10*3/uL (160-400); Red Cell Distribution Width 13.1 % (11.0-16.0); White Blood Count 9.7 X10*3/uL (4.8-10.8)
[2022-06-15 09:43] LABS: B Type Natriuretic Peptide < 10 pg/mL (<100); D Dimer High Sensitivity < 150 NG/ML
[2022-06-15 09:49] LABS: COVID-19 Test Negative (Negative); IDNOW Serial# 9DB6401D; IDNOW Serial# BCCEAD1C; Influenza A Negative (Negative)
[2022-06-15 09:52] LABS: Alanine Aminotransferase 27 U/L (0-31); Albumin Level 4.3 g/dL (3.5-5.0); Alkaline Phosphatase 59 U/L (39-117); Anion Gap 13 (12-20); Aspartate Amino Transferase 21 U/L (5-31); Bilirubin Direct 0.2 mg/dL (0.0-0.5); Bilirubin Total 0.7 mg/dL (0.0-1.0); Blood Urea Nitrogen 16 mg/dL (9-16); Calcium 9.7 mg/dL (8.4-10.2); Carbon Dioxide 23 mmol/L (22-29); Chloride 109 mmol/L (96-108); Creatinine Clr Calc Pharmacy 86.7; Estimated Glomerular Filt Rate > 60; Potassium 4.2 mmol/L (3.3-5.1); Sodium 141 mmol/L (135-145); Total Protein 6.8 g/dL (6.5-8.0)
[2022-06-15 09:55] VITALS: BP 116/71; PULSE 63; RESP 16; O2SAT 97
--- NOTE | 2022-06-15 09:59 | PC.NURSE ---
Pt is alert/oriented. States pain to b/l upper back and substernal chest pain since Wednesday with productive cough for deutsch sputum. LS clear throughout. Breathing even/unlabored. NSR on tele. Skin pwd. sat 95-97% on room air. Family at bedside. Speaking full sentences.
[2022-06-15 10:04] LABS: Troponin-I High Sensitivity < 2.7 ng/L (<3.5-17.0)
[2022-06-15 10:41] VITALS: BP 119/79; PULSE 67; RESP 19; TEMP 36.6; O2SAT 98
[2022-06-15 11:22] LABS: Glucose Random 87 mg/dL (60-115)
[2022-06-15 12:16] VITALS: BP 127/73; PULSE 64; RESP 16
[2022-06-16 00:28] LABS: Influenza B2 Negative (Negative)
== END 2022-06-15 12:17 | disposition home or self-care (01) ==
PROVIDERS: Physician Assistant; Emergency Provider Emergency Medicine; PCP Nurse Practitioner Primary Care
DX: J40 Bronchitis, not specified as acute or chronic (principal); R07.89 Other chest pain; R06.02 Shortness of breath; Z20.822 Contact with and (suspected) exposure to COVID-19; Z20.828 Contact with and (suspected) exposure to other viral communicable diseases; Z79.899 Other long term (current) drug therapy
CPT/HCPCS: 71046; 80048; 80076; 83880; 84484; 85025; 85379; 87502; 87635; 93005; 99283; 99285

== ENCOUNTER → 2022-06-18 09:17 | Outpatient (BNVA) | payer MEDICAID, SELFPAY | PROVIDERS: PCP Nurse Practitioner Primary Care; Visit Provider Obstetrics & Gynecology ==

== ENCOUNTER → 2022-07-15 10:16 | Outpatient (BNVA) | payer MEDICAID, SELFPAY | PROVIDERS: PCP Nurse Practitioner Primary Care; Referring Provider Nurse Practitioner Primary Care; Visit Provider Internal Medicine Cardiovascular Disease | DX: R00.2 Palpitations (principal); I10 Essential (primary) hypertension | CPT/HCPCS: 99212 ==

== ENCOUNTER 2022-10-13 09:08 | Emergency (ER) | payer MEDICAID, SELFPAY ==
--- NOTE | ~2022-10-13 | XR_ITS ---
EXAMINATION: XR ELBOW, LEFT CLINICAL INFORMATION: Left elbow pain. COMPARISON: None available. TECHNIQUE: AP, lateral, and oblique views of the left elbow. FINDINGS: The bones and soft tissues are normal. No fracture or joint effusion. Alignment is anatomic. Joint spaces are maintained. XR/XR elbow LT min 3V IMPRESSION: Unremarkable left elbow.
--- NOTE | ~2022-10-13 | XR_ITS ---
EXAMINATION: XR CHEST CLINICAL INFORMATION: Atypical chest pain COMPARISON: 06/15/2022 chest radiographs. TECHNIQUE: 2 views of the chest were obtained. FINDINGS: No significant abnormality is noted involving the heart, lungs, mediastinum, bony thorax or soft tissues. XR/XR chest 2V IMPRESSION: No acute cardiopulmonary process.
--- NOTE | ~2022-10-13 | XR_ITS ---
EXAMINATION: XR SHOULDER, LEFT CLINICAL INFORMATION: Left shoulder pain. COMPARISON: None available. TECHNIQUE: Three views of the left shoulder. FINDINGS: The bones and soft tissues are normal. No fracture. Glenohumeral and acromioclavicular alignment is anatomic with normal joint space. No abnormal soft tissue calcifications. XR/XR shoulder LT min 2V IMPRESSION: Unremarkable left shoulder.
[2022-10-13 09:14] VITALS: BP 128/71; PULSE 84; RESP 16; TEMP 37; O2SAT 98; BMI 28.4
--- NOTE | 2022-10-13 10:26 | PC.NURSE ---
staff research associate at bedside for rn/pa vaishnavi. reports pain to l shoulder/wrist/elbow/arm and reports pain w limited ROM. +strength to grasp. +CSM. aox4. anxious, cooperative. no respir distress
--- NOTE | 2022-10-13 10:29 | ECG_ITS ---
Test Reason : left shoulder pain Blood Pressure : / mmHG Vent. Rate : 068 BPM Atrial Rate : 068 BPM P-R Int : 138 ms QRS Dur : 076 ms QT Int : 406 ms P-R-T Axes : 044 000 -07 degrees QTc Int : 431 ms Normal sinus rhythm Normal ECG When compared with ECG of 15-JUN-2022 08:00, No significant change was found Referred By: Valerie Tao Electronically Signed By:ISSAC AGUIRRE
[2022-10-13 11:05] VITALS: BP 129/76; PULSE 66; RESP 12; O2SAT 99
[2022-10-13 11:05] LABS: MANUAL DIFF FLAG NO
[2022-10-13 11:07] LABS: Basophils Absolute Auto 0.1 X10*3/uL (0.0-0.2); Basophils Percent Auto 0.7 % (0-2); Eosinophils Absolute Auto 0.2 X10*3/uL (0.0-0.4); Eosinophils Percent Auto 1.5 % (0-4); Hematocrit 45.3 % (37.0-47.0); Imm Gran Abs Auto 0.03 X10*3/uL (0.00-0.03); Imm Gran Pct Auto 0.3 % (0.0-0.4); Lymphocytes Absolute Auto 3.2 X10*3/uL (1.2-4.9); Lymphocytes Percent Auto 31.5 % (20-40); Mean Corpuscular HGB Conc 33.1 g/dl (31.0-35.0); Mean Corpuscular Hemoglobin 30.6 pg (27.0-33.0); Mean Corpuscular Volume 92.4 fL (80.0-98.0); Mean Platelet Volume 8.7 fL (9.4-12.3); Monocytes Absolute Auto 0.9 X10*3/uL (0.1-1.2); Monocytes Percent Auto 8.8 % (2-11); Neutrophils Absolute Auto 5.8 x10*3/uL (2.0-8.3); Neutrophils Percent Auto 57.2 % (45-73); Platelet Count 287 X10*3/uL (160-400); Red Cell Distribution Width 12.9 % (11.0-16.0)
[2022-10-13 11:21] LABS: Alanine Aminotransferase 18 U/L (0-31); Albumin Level 4.6 g/dL (3.5-5.0); Alkaline Phosphatase 76 U/L (39-117); Anion Gap 12 (12-20); Aspartate Amino Transferase 19 U/L (5-31); Bilirubin Direct 0.3 mg/dL (0.0-0.5); Blood Urea Nitrogen 14 mg/dL (9-16); Calcium 10.1 mg/dL (8.4-10.2); Carbon Dioxide 27 mmol/L (22-29); Chloride 106 mmol/L (96-108); Creatinine Clr Calc Pharmacy 98.1; Estimated Glomerular Filt Rate > 60; Glucose Random 96 mg/dL (60-115); Magnesium 2.3 mg/dL (1.6-2.6); Potassium 4.3 mmol/L (3.3-5.1); Sodium 141 mmol/L (135-145); Total Protein 8.1 g/dL (6.5-8.0)
[2022-10-13 11:25] LABS: B Type Natriuretic Peptide 19 pg/mL (<100)
[2022-10-13 11:28] LABS: Troponin-I High Sensitivity < 2.7 ng/L (<3.5-17.0)
--- NOTE | 2022-10-13 12:07 | ED_ITS ---
HPI - Extremity Problem General Chief complaint: Extremity Injury, Upper Stated complaint: L shoulder/elbow/wrist pain Time Seen by Provider: 10/13/22 09:47 Source: patient and RN notes reviewed Mode of arrival: ambulatory Limitations: no limitations History of Present Illness HPI Narrative: This is a 52-year-old female, with a past medical history of anemia, depression, GERD, colon cancer, presenting to the emergency department for evaluation of left shoulder and left elbow pain x2 days. Patient denies any recent trauma or injury. She admits that the pain worsens with movement and with palpation of her left shoulder and left elbow. She denies any recent trauma, injury, heavy lifting or falls. She does admit that she takes care of her grandchild which often requires her to lift the child up. She denies any fevers, chills, chest pain, shortness of breath, palpitations, abdominal pain, nausea, vomiting or diarrhea. Denies taking any medications at home to treat her current symptoms. Denies any other complaints or concerns at this time. MD Complaint: extremity pain and extremity swelling Onset (ago): day(s) Pain Consistency: constant Location: left and upper extremity Quality: constant Relieving factors: immobilization Associated symptoms: denies other symptoms Related Data Home Medications Medication Instructions Recorded Confirmed cholecalciferol (vitamin D3) 50 1 tab PO DAILY 09/04/20 07/15/22 mcg (2,000 unit) tablet (Vitamin D3) atorvastatin 20 mg tablet 20 mg PO DAILY 07/15/22 07/15/22 Previous Rx's Medication Instructions Recorded hydrocortisone 2.5 % topical cream 1 appl IN BID hemorrhoids #30 grams 05/08/22 with perineal applicator (Proctosol HC) omeprazole 20 mg capsule,delayed 20 mg PO BID #60 caps 05/08/22 release simethicone 180 mg capsule (Gas 180 mg PO .Q.i.d. #120 caps 05/08/22 Relief (simethicone)) acetaminophen 650 mg 650 mg PO Q8H PRN pain #45 tabs 10/13/22 tablet,extended release (Tylenol 8 Hour) lidocaine 5 % topical patch 1 patch topical DAILY #30 ea 10/13/22 (Lidoderm) prednisone 20 mg tablet 40 mg PO DAILY 5 days #10 tabs 10/13/22 Allergies Allergy/AdvReac Type Severity Reaction Status Date / Time aspirin [ASA] AdvReac Mild BRUISES Verified 07/15/22 10:28 Review of Systems Review of Systems: Yes all other systems are reviewed and are negative Constitutional: Constitutional: Reports as per HPI [facility] Past Medical History Medical History Anemia Chronic right shoulder pain Colon cancer Colon cancer screening Depression GERD (gastroesophageal reflux disease) Smoker Surgical History History of colon resection History of dilation and curettage History of excision of lesion History of exploratory laparotomy Hx of section Hx of cholecystectomy Hx of colonoscopy Hx of foot surgery Hx of hysterectomy Family History Family History Father FH: prostate cancer Paternal Aunt Breast cancer Social History Social History Household Members: Spouse Are you a primary long term acute care registered nurse to a significant other at home: No Do you presently have visiting nurse or other home services: No Alcohol intake: never Patient Tobacco Use Status: Current everyday Tobacco user Tobacco use type: Cigarette Cigarette Packs Per Day: 0.5 Cigarettes Per Day: 10.0 Years Smoked: 30 +/- Smoked in Last 30 Days: Yes Use of substances other than those prescribed or required for medical reasons: Yes Substance Use Type: Marijuana Advance Directives: No Advance Directives Information Provided: Yes Physical Exam Vital Signs: Vital Signs: Last Vital Signs Temp 98.6 F 10/13/22 09:14 Pulse 66 10/13/22 11:05 Resp 12 10/13/22 11:05 BP 129/76 10/13/22 11:05 Pulse Ox 99 10/13/22 11:05 O2 Del Method Room Air 10/13/22 11:05 BMI result Body Mass Index 28.4 Const: General: cooperative, comfortable and no acute distress Orientation/consciousness: patient oriented x3 Limitations: no limitations HEENT: Head: Yes normal to inspection, Yes normocephalic and Yes atraumatic Ears: hearing grossly normal bilaterally General nose exam: Normal external nose present Face and sinus: Yes normal facial exam Mouth: Normal oral and palatal mucosa present, oropharynx normal and moist mucous membranes Throat: Yes posterior oropharynx normal Eyes: General: appearance normal, both eyes and all related structures Eyelids: Yes eyelids normal Conjunctivae: conjunctivae normal Sclerae: sclerae normal Pupils: Equal, round and reactive pupils present EOM: EOMs intact bilaterally Neck: Other: No midline cervical spine tenderness to palpation. Neck: Yes normal visual inspection, Yes full ROM and Yes no lymphadenopathy Lymphatic: no lymphadenopathy noted Chest: Chest palpation & inspection: normal inspection of the chest Resp: Effort & Inspection: normal respiratory effort and able to speak in complete sentences Auscultation: clear to auscultation bilaterally, no crackles, no rales, no rhonchi and no wheezes Cardio: Rate: regular rate Rhythm: regular rhythm Heart sounds: S1 normal heart sound present and S2 normal heart sound present GI: Inspection: Yes normal to inspection Skin: General skin exam: no rashes or lesions noted Trauma: no lacerations or abrasions Wounds: no wounds Neuro: General: patient oriented x3 and moves all extremities Cranial nerves: Yes Equal, round and reactive pupils present Extrem: Other: Left shoulder normal to inspection, no overlying erythema or edema noted. Diffusely tender throughout all joint, worse over the left AC joint. Limited range of motion of the left shoulder secondary to pain. Passive range of motion of the left elbow intact. No overlying erythema or edema noted. Radial pulses 2+. Rehab Spec strength equal bilaterally. General: Yes normal to inspection Right upper extremity: normal to ins pection Left upper extremity: normal to inspection Right lower extremity: normal to inspection Left lower extremity: normal to inspection Course Reevaluation(s) Reevaluation #1: CBC within normal limits, H&H stable, no leukocytosis, BNP without any acute findings. Shoulder, elbow, and chest x-ray unremarkable, EKG normal sinus rhythm with no acute ischemic changes. Troponin is negative. Given symptoms have been occurring for 2 days consistently, does not need repeat troponin. Patient's heart score is a 2. Given presentation, musculoskeletal injury is suspected. Will treat with Tylenol and prednisone. Encouraged to follow-up with primary care physician regarding this visit. Discussed all these findings with translator interpreter at bedside. Answered all questions asked by patient. Patient understands and agrees with plan. Patient stable for discharge. Time: 12:11 Medical Decision Making Medical Decision Making MDM Narrative: This is a 52-year-old female presenting to the emergency department for evaluation of left shoulder and left elbow pain. On arrival, all vital signs within normal limits. Given patient has had no known trauma or injury to her left shoulder and left elbow, cardiac etiology cannot be ruled out. Differential diagnosis sees include ACS, left shoulder muscle strain, sprain, bursitis, arthritis. On examination, patient has tenderness palpation along the left elbow and left shoulder. Diminished range of motion of the left shoulder secondary to pain. Given decreased range of motion, frozen shoulder is also considered. Plan: Labs, EKG, shoulder x-ray, elbow x-ray, chest x-ray obtained Differential Diagnosis Differential Diagnoses: The differential diagnosis associated with the presentation includes See above Admission/Observation Consideration of admission/observation: Escalation of care including admission/observation considered Patient would have been admitted to the hospital had her work up had any fi ndings where hospital admission was appropriate and her clinical presentation warranted hospital admission. Lab Data MDM Lab Attestation statement: I reviewed the patient's lab results. See above 10/13/22 11:01 10/13/22 11:01 Labs: Lab Results 10/13/22 10/13/22 10/13/22 Range/Units 11:01 11:01 11:01 WBC 10.0 (4.8-10.8) X10*3/uL RBC 4.90 (4.20-5.50) X10*6/uL Hgb 15.0 (12.0-16.0) g/dl Hct 45.3 (37.0-47.0) % MCV 92.4 (80.0-98.0) fL MCH 30.6 (27.0-33.0) pg MCHC 33.1 (31.0-35.0) g/dl RDW 12.9 (11.0-16.0) % Plt Count 287 (160-400) X10*3/uL MPV 8.7 L (9.4-12.3) fL Immature Gran % (Auto) 0.3 (0.0-0.4) % Neut % (Auto) 57.2 (45-73) % Lymph % (Auto) 31.5 (20-40) % Terrell % (Auto) 8.8 (2-11) % Eos % (Auto) 1.5 (0-4) % Baso % (Auto) 0.7 (0-2) % Lymph # (Auto) 3.2 (1.2-4.9) X10*3/uL Terrell # (Auto) 0.9 (0.1-1.2) X10*3/uL Eos # (Auto) 0.2 (0.0-0.4) X10*3/uL Baso # (Auto) 0.1 (0.0-0.2) X10*3/uL Abs Immat Gran (auto) 0.03 (0.00-0.03) X10*3/uL Absolute Neuts (auto) 5.8 (2.0-8.3) x10*3/uL Absolute Nucleated RBC 0.000 (0.0-0.012) X10*3/uL Nucleated RBC % (auto) 0.0 (0.0-0.2) /100WBC Sodium 141 (135-145) mmol/L Potassium 4.3 (3.3-5.1) mmol/L Chloride 106 (96-108) mmol/L Carbon Dioxide 27 (22-29) mmol/L Anion Gap 12 (12-20) BUN 14 (9-16) mg/dL Creatinine 0.65 (0.5-1.4) mg/dL Estim Creat Clear Calc 98.1 Estimated GFR > 60 Random Glucose 96 (60-115) mg/dL Calcium 10.1 (8.4-10.2) mg/dL Magnesium 2.3 (1.6-2.6) mg/dL Total Bilirubin 1.0 (0.0-1.0) mg/dL Direct Bilirubin 0.3 (0.0-0.5) mg/dL AST 19 (5-31) U/L ALT 18 (0-31) U/L Alkaline Phosphatase 76 (39-117) U/L Troponin I High Sens (<3.5-17.0) ng/L B-Natriuretic Peptide 19 (<100) pg/mL Total Protein 8.1 H (6.5-8.0) g/dL Albumin 4.6 (3.5-5.0) g/dL 10/13/22 Range/Units 11:01 WBC (4.8-10.8) X10*3/uL RBC (4.20-5.50) X10*6/uL Hgb (12.0-16.0) g/dl Hct (37.0-47.0) % MCV (80.0-98.0) fL MCH (27.0-33.0) pg MCHC (31.0-35.0) g/dl RDW (11.0-16.0) % Plt Count (160-400) X10*3/uL MPV (9.4-12.3) fL Immature Gran % (Auto) (0.0-0.4) % Neut % (Auto) (45-73) % Lymph % (Auto) (20-40) % Terrell % (Auto) (2-11) % Eos % (Auto) (0-4) % Baso % (Auto) (0-2) % Lymph # (Auto) (1.2-4.9) X10*3/uL Terrell # (Auto) (0.1-1.2) X10*3/uL Eos # (Auto) (0.0-0.4) X10*3/uL Baso # (Auto) (0.0-0.2) X10*3/uL Abs Immat Gran (auto) (0.00-0.03) X10*3/uL Absolute Neuts (auto) (2.0-8.3) x10*3/uL Absolute Nucleated RBC (0.0-0.012) X10*3/uL Nucleated RBC % (auto) (0.0-0.2) /100WBC Sodium (135-145) mmol/L Potassium (3.3-5.1) mmol/L Chloride (96-108) mmol/L Carbon Dioxide (22-29) mmol/L Anion Gap (12-20) BUN (9-16) mg/dL Creatinine (0.5-1.4) mg/dL Estim Creat Clear Calc Estimated GFR Random Glucose (60-115) mg/dL Calcium (8.4-10.2) mg/dL Magnesium (1.6-2.6) mg/dL Total Bilirubin (0.0-1.0) mg/dL Direct Bilirubin (0.0-0.5) mg/dL AST (5-31) U/L ALT (0-31) U/L Alkaline Phosphatase (39-117) U/L Troponin I High Sens < 2.7 (<3.5-17.0) ng/L B-Natriuretic Peptide (<100) pg/mL Total Protein (6.5-8.0) g/dL Albumin (3.5-5.0) g/dL Independent Interpretation I performed an independent interpretation of an: EKG Interpretation: EKG normal sinus rhythm at a ventricular rate of 60 beats per minute, no ST elevation or depression IN interval 138, QTC 431. Radiology Impression Discussion of test interpretation with radiology: I have reviewed the radiologist's reading. Radiologist Impression: EXAMINATION: XR SHOULDER, LEFT CLINICAL INFORMATION: Left shoulder pain.? COMPARISON: None available.? TECHNIQUE: Three views of the left shoulder. FINDINGS: The bones and soft tissues are normal. No fracture. Glenohumeral and acromioclavicular alignment is anatomic with normal joint space. No abnormal soft tissue calcifications.? XR/XR shoulder LT min 2V IMPRESSION: Unremarkable left shoulder. Dictated By: Javier Rankin MD EXAMINATION: XR ELBOW, LEFT CLINICAL INFORMATION: Left elbow pain.? COMPARISON: None available.? TECHNIQUE: AP, lateral, and oblique views of the left elbow. FINDINGS: The bones and soft tissues are normal. No fracture or joint effusion. Alignment is anatomic. Joint spaces are maintained.? XR/XR elbow LT min 3V IMPRESSION: Unremarkable left elbow. Dictated By: Javier Rankin MD EXAMINATION: XR CHEST CLINICAL INFORMATION: Atypical chest pain COMPARISON: 06/15/2022 chest radiographs. TECHNIQUE: 2 views of the chest were obtained. FINDINGS: No significant abnormality is noted involving the heart, lungs, mediastinum, bony thorax or soft tissues. XR/XR chest 2V IMPRESSION: No acute cardiopulmonary process. Dictated By: Javier Rankin MD Signed By: <Electronically signed by Javier Rankin MD in OV> Scores Heart Score History: -0- slightly suspicious ECG: -0- normal Age: -1- >45 - <65 Risk factory: -1- 1 or 2 risk factors Troponin: -0- < or = normal limit Score: 2 Risk: 1.7% Discharge Plan Discharge Clinical Impression: Left shoulder pain, Elbow pain, left Patient Disposition: Home, Self-Care Instructions: Adhesive Capsulitis (ED), Shoulder Pain (ED), Arm Pain (ED) Additional Instructions: Your left shoulder x-ray and elbow x-ray did not show any bony abnormalities. Your chest x-ray was normal today. Your EKG and blood work was reassuring. You likely have muscle spasms and a muscle strain in your arm causing you to have this pain. It is very important that he continually move your elbow in your shoulder to prevent something called adhesive capsulitis, which can cause worsening pain and limited range of motion. Gentle stretching, massage, heat or ice can also help with your symptoms. Given your level of discomfort and decreased range of motion of your shoulder, I am prescribing you Tylenol and prednisone. Please take Tylenol as needed, take prednisone as prescribed. Do not take prednisone and ibuprofen or naproxen as this increases your likelihood to develop ulcers or bleeding. I am also prescribing lidocaine patches to help with your pain. Please call Orthopedics for follow-up and further treatment and management. If any other new or worsening symptoms occur including but not limited to chest pain, shortness of breath, worsening pain, please return for re-evaluation. Las radiograf?as del hombro tonie y del codo no mostraron ninguna anomal?a ?sea. An radiograf?a de t?rax fue normal hoy. An electrocardiograma y an?lisis de steve fueron tranquilizadores. Es probable que tenga espasmos musculares y yohana distensi?n muscular en el brazo que le cause jayde dolor. Es muy importante que mueva continuamente el codo en el hombro para prevenir algo llamado capsulitis adhesiva, que puede empeorar el dolor y limitar el rango de movimiento. Los estiramientos suaves, los masajes, el calor o el hielo tambi?n pueden ayudar con joselyn s?ntomas. Dado an nivel de malestar y la disminuci?n del rango de movimiento de an hombro, le recetar? Tylenol y prednisona. [place] Tylenol seg?n sea necesario y prednisona seg?n lo recetado. No tome prednisona ni ibuprofeno ni naproxeno, ya que esto aumenta la probabilidad de desarrollar ?lceras o sangrado. Tambi?n le estoy recetando parches de lidoca?na para aliviar an dolor. Llame a [employer] para seguimiento y tratamiento y manejo adicionales. Si se presenta alg?n otro s?ntoma nuevo o que empeora, incluidos, entre otros, dolor en el pecho, dificultad para respirar o empeoramiento del dolor, regrese p kalani yohana reevaluaci?n. Prescriptions: New lidocaine [Lidoderm] 5 % adhesive patch,medicated 1 patch topical DAILY Qty: 30 0RF Rx Instructions: leave on most painful area for up to 12 hrs prednisone 20 mg tablet 40 mg PO DAILY 5 Days Qty: 10 0RF acetaminophen [Tylenol 8 Hour] 650 mg tablet extended release 650 mg PO Q8H PRN (Reason: pain) Qty: 45 0RF No Action cholecalciferol (vitamin D3) [Vitamin D3] 50 mcg (2,000 unit) tablet 1 tab PO DAILY omeprazole 20 mg capsule,delayed release(DR/EC) 20 mg PO BID Qty: 60 6RF simethicone [Gas Relief (simethicone)] 180 mg capsule 180 mg PO .Q.i.d. Qty: 120 4RF hydrocortisone [Proctosol HC] 2.5 % cream with perineal applicator 1 appl IN BID Qty: 30 3RF atorvastatin 20 mg tablet 20 mg PO DAILY Referrals: [facility] [Provider Group] Print Language: Welsh
--- NOTE | 2022-10-13 12:31 | PC.NURSE ---
no respir distress/cp/sob. talking well. health science writer to bedside for dc
[2022-10-13 12:37] VITALS: BP 136/85; PULSE 77; RESP 18; TEMP 36.6; O2SAT 97
== END 2022-10-13 12:41 | disposition home or self-care (01) ==
PROVIDERS: Physician Assistant Medical; Emergency Provider Student in an Organized Health Care Education/Training Program; PCP Nurse Practitioner Primary Care
DX: M25.512 Pain in left shoulder (principal); R06.02 Shortness of breath; R07.89 Other chest pain; F17.210 Nicotine dependence, cigarettes, uncomplicated; Z71.6 Tobacco abuse counseling; Z79.899 Other long term (current) drug therapy
CPT/HCPCS: 36415; 71046; 73030; 73080; 80048; 80076; 83735; 83880; 84484; 85025; 93005; 99283; 99284

== ENCOUNTER 2022-12-23 09:22 | Outpatient (AMB) | payer MEDICAID, SELFPAY ==
[2022-12-23 09:26] VITALS: BP 120/80; PULSE 68; BMI 25.4
--- NOTE | 2022-12-23 09:26 | A.OFFVIS_ITS ---
Intake Vital Signs 12/23/22 09:26 Height 5 ft 4 in Weight 147 lb 11.355 oz BMI 25.4 BP 120/80 Blood Pressure Location Lt brachial Position Sitting Pulse 68 Intake Visit Reasons: 6 month follow-up Intake Note: 6 month follow-up feeling good Allergies aspirin [ASA] Adverse Reaction (Mild, Verified 07/15/22 10:28) BRUISES Medication List - Last Reconciled 12/23/22 by Jorge Hines MD acetaminophen ER (Tylenol 8 Hour) 650 mg PO Q8H PRN atorvastatin 20 mg PO DAILY cholecalciferol (vitamin D3) (Vitamin D3) 1 tab PO DAILY hydrocortisone 2.5% (Proctosol HC) 1 appl [place] BID lidocaine 5% (Lidoderm) 1 patch topical DAILY omeprazole 20 mg PO BID simethicone (Gas Relief (simethicone)) 180 mg PO .Q.i.d. HPI HPI Comments History of Present Illness Details 52-year-old female who is here for follo w-up. She has background of hypertension. She also had palpitations in the past. She underwent cardiac event monitor which did not show any significant arrhythmia. She actually had palpitations in sinus rhythm. It appears she also had stress testing done in the last few months. She is denying any chest discomfort. She said she had bronchitis which she has recovered from. No palpitations on follow-up. 12/23/2022: She returns for follow-up. S he is denying chest pain or palpitations. She continues to smoke 1 pack in 3 days. No chest discomfort shortness of breath overall feeling better. PFSH Medical History Anemia Chronic right shoulder pain Colon cancer Colon cancer screening Depression GERD (gastroesophageal reflux disease) Smoker Surgical History History of colon resection History of dilation and curettage History of excision of lesion History of exploratory laparotomy Hx of section Hx of cholecystectomy Hx of colonoscopy Hx of foot surgery Hx of hysterectomy Family History Father FH: prostate cancer Paternal Aunt Breast cancer Social History Household Members: Spouse Are you a primary animal care service worker to a significant other at home: No Do you presently have visiting nurse or other home services: No Alcohol intake: never Patient Tobacco Use Status: Current everyday Tobacco user Tobacco use type: Cigarette Cigarette Packs Per Day: 0.5 Cigarettes Per Day: 10.0 Years Smoked: 30 +/- Substance Use Type: Marijuana Female Reproductive History Menstrual Age of Menarche: 11 Review of Systems Const Denies chills, Denies fatigue, Denies fever(s), Denies frequent falls, Denies weakness, Denies weight gain and Denies weight loss ENT Denies dizziness Card Denies chest pain, Denies leg edema, Denies lightheadedness, Denies palpitations, Denies dyspnea, Denies dyspnea on exertion, Denies orthopnea and Denies other (loss of consciousness) Resp Denies cough, Denies dyspnea and Denies dyspnea on exertion GI Denies hematochezia and Denies change in stool character Musc Denies abnormal gait, Denies muscle weakness, Denies numbness, Denies radiating pain into limb and Denies tingling Neuro Denies abnormal gait, Denies dizziness, Denies frequent falls, Denies numbness, Denies tingling and Denies weakness Endo Denies fatigue and Denies palpitations Physical Exam Vital Signs: Last Vital Signs Pulse 68 12/23/22 09:26 BP 120/80 12/23/22 09:26 BMI result Body Mass Index 25.4 GENERAL APPEARANCE: in no acute distress, pleasant. NECK: no carotid bruit, no jugular venous distention. SKIN: no suspicious lesions, warm and dry. HEART: no murmurs, regular rate and rhythm. LUNGS: clear to auscultation bilaterally. ABDOMEN: soft, nontender. EXTREMITIES: no edema. PERIPHERAL PULSES: equal. NEUROLOGIC: No gross deficits, AAO X 3 Assessment & Plan Assessment & Plan (1) Tobacco use: Code(s): Z72.0 - Tobacco use (2) Essential hypertension: Code(s): I10 - Essential (primary) hypertension Plan 52-year-old female who is here for follow-up. She has background history of hypertension and palpitations. She is denying palpitations on follow-up and is saying that they were due to anxiety. She continues to smoke. We discussed about Chantix and she is interested and I will send a script for her. Blood pressure control is good. She will see us back in 1 year. Thank you for allowing me to participate in the care of your patient. Please feel free to contact me if you have any questions. Medications: New varenicline (Chantix Starting Month Box) PO PER PKG DIR 53 ea 0RF Z72.0 - Tobacco use Coding Level of Care Code Est Pt Level 3 (13247) Diagnoses Tobacco use Z72.0 Essential hypertension I10
== END 2022-12-23 09:44 | disposition home or self-care (01) ==
PROVIDERS: Visit Provider Internal Medicine Cardiovascular Disease
DX: Z72.0 Tobacco use (principal); I10 Essential (primary) hypertension
CPT/HCPCS: 99213

== ENCOUNTER → 2022-12-23 09:22 | Outpatient (BNVA) | payer MEDICAID, SELFPAY | PROVIDERS: Visit Provider Internal Medicine Cardiovascular Disease | DX: I10 Essential (primary) hypertension (principal); F17.210 Nicotine dependence, cigarettes, uncomplicated | CPT/HCPCS: 99212 ==

== ENCOUNTER 2023-10-15 10:56 | Outpatient (REF) | payer MEDICAID, SELFPAY ==
--- NOTE | ~2023-10-15 | MM_ITS ---
EXAMINATION: MM SCREENING DIGITAL BREAST TOMOSYNTHESIS, BILATERAL CLINICAL INFORMATION: Screening. Asymptomatic. COMPARISON: Mammography: Comparison is made with available priors TECHNIQUE: Digital breast tomosynthesis is performed in both the craniocaudal and mediolateral oblique views along with computer-aided detection (CAD). Synthesized 2D images are generated from the tomosynthesis. FINDINGS: The breasts are heterogeneously dense, which may obscure small masses (ACR BI-RADS breast composition Category c). There are no significant masses, abnormal calcifications, or other abnormalities. MM/MM tomosynthesis screening BI IMPRESSION: No mammographic evidence of malignancy. ASSESSMENT: BI-RADS BI-RADS 1 - Negative RECOMMENDATION: Routine annual mammography screening. 1 year F/U This examination should not preclude the clinical evaluation of a suspicious palpable abnormality. This patient's information was entered into a reminder system with a target due date for their next mammogram. Electronically signed by: Ilene Pruett DO 11/05/2023 10:54 PM EDT
== END 2023-10-15 10:57 | disposition home or self-care (01) ==
LOC: HO.MAMMO 10:56
PROVIDERS: PCP Nurse Practitioner Primary Care; Visit Provider Nurse Practitioner Primary Care
DX: Z12.31 Encounter for screening mammogram for malignant neoplasm of breast (principal)
CPT/HCPCS: 77063; 77067

== ENCOUNTER → 2023-10-15 11:15 | Outpatient (BNV) | payer MEDICAID, SELFPAY | PROVIDERS: PCP Nurse Practitioner Primary Care; Visit Provider Internal Medicine | DX: Z12.31 Encounter for screening mammogram for malignant neoplasm of breast (principal) | CPT/HCPCS: 77063; 77067 ==

== ENCOUNTER 2023-10-25 12:42 | Outpatient (AMB) | payer MEDICAID, SELFPAY ==
[2023-10-25 12:55] VITALS: BMI 25.2
--- NOTE | 2023-10-25 12:55 | A.OFFVIS_ITS ---
Vital Signs 10/25/23 12:55 Height 5 ft 4 in Weight 147 lb BMI 25.2 Intake Visit Reasons: OV - Right Shoulder Pain; Last Rt Shdr INJ 05/06/22 Intake Note: Ciarra is a 53 year old patient that presents herself today with pain in the right shoulder pain, patient states that she still has pain but its bearable, Patient completed her PT. She would like to get another cortisone injection today. Allergies aspirin [ASA] Adverse Reaction (Mild, Verified 10/25/23 13:00) BRUISES Medication List - Last Reconciled 10/25/23 by Sander Khan PA-C acetaminophen ER (Tylenol 8 Hour) 650 mg PO Q8H PRN atorvastatin 20 mg PO DAILY cholecalciferol (vitamin D3) (Vitamin D3) 1 tab PO DAILY hydrocortisone 2.5% (Proctosol HC) 1 appl [place] BID lidocaine 5% (Lidoderm) 1 patch topical DAILY omeprazole 20 mg PO BID simethicone (Gas Relief (simethicone)) 180 mg PO .Q.i.d. varenicline (Chantix Starting Month Box) PO PER PKG DIR HPI HPI OV - Right Shoulder Pain; Last Rt Shdr INJ 05/06/22: Details: 53-year-old Taiwanese speaking female who returns to the office today for a follow-up of right shoulder pain. She states she has pain in her right shoulder that has been tolerable. She has completed physical therapy as instructed. She had her last injection on 05/06/22 which provided her relief until recently. She would like to repeat the injection. PFSH Medical History Anemia Chronic right shoulder pain Colon cancer Colon cancer screening Depression GERD (gastroesophageal reflux disease) Smoker Surgical History History of colon resection History of dilation and curettage History of excision of lesion History of exploratory laparotomy Hx of section Hx of cholecystectomy Hx of colonoscopy Hx of foot surgery Hx of hysterectomy Family History Father FH: prostate cancer Paternal Aunt Breast cancer Social History Household Members: Spouse Are you a primary client care coordinator to a significant other at home: No Do you presently have visiting nurse or other home services: No Alcohol intake: never Patient Tobacco Use Status: Current everyday Tobacco user Tobacco use type: Cigarette Cigarette Packs Per Day: 0.5 Cigarettes Per Day: 10.0 Years Smoked: 30 +/- Substance Use Type: Marijuana Female Reproductive History Menstrual Age of Menarche: 11 Review of Systems Const All systems reviewed & are unremarkable except as noted in HPI and below Physical Exam Vital Signs: BMI result Body Mass Index 25.2 Extrem Other: Right shoulder: Normal to inspection. Tenderness over the bicipital groove and along the deltoid region of the shoulder. Forward flexion to 175, external rotation to 90, internal rotation to S1. 5/5 RTC strength. Negative Mckeon and cross body abduction. NVI. Office Procedures Joint Injection/Aspiration Joint Injection/Aspiration Primary Site: right shoulder Prep: site was prepped using aseptic technique, ethochloride spray was applied and injection warnings given Injected: 80 mg of, DepoMedrol, with 8 mL of, 1% plain lidocaine and in the subcromial space Approach Used: posterolateral Procedure: The patient tolerated the procedure well and there was some relief with the local anesthesia Coding 34718 - Glenohumeral/Tronchanteric Bursa/Intraarticular Procedure code (CPT) selection complete Assessment & Plan Assessment & Plan (1) Subacromial impingement of right shoulder: Code(s): M75.41 - Impingement syndrome of right shoulder Category: Medical Plan We discussed options today, which include steroid injection. The patient did consent to move forward with the right shoulder injection, which was tolerated well. I recommended rest, ice, and elevation and OTC anti-inflammatories as needed for discomfort. If symptoms persist or worsen over the next 6-8 weeks, patient will contact the office, otherwise follow-up as needed. ? Patient Instructions: Scribed for Sander Khan PA-C, by Andrea Robles medical sales representative, on 10/25/2023 at 1:00 PM EST.? I, Sander Khan PA-C, have personally reviewed and agree with the information entered by the scribe. Coding Level of Care Code Est Pt Level 3 (45773) Complex EM visit Add On G2211 Diagnoses Subacromial impingement of right shoulder M75.41 CPT Codes Coding - Joint 7: 21691 - Glenohumeral/Tronchanteric Bursa/Intraarticular ([id number])
== END 2023-10-25 13:39 | disposition home or self-care (01) ==
PROVIDERS: PCP Nurse Practitioner Primary Care; Visit Provider Physician Assistant
DX: M75.41 Impingement syndrome of right shoulder (principal)
CPT/HCPCS: 20610; 99213

== ENCOUNTER → 2023-10-25 12:42 | Outpatient (BNVA) | payer MEDICAID, SELFPAY | PROVIDERS: PCP Nurse Practitioner Primary Care; Visit Provider Physician Assistant | DX: M75.41 Impingement syndrome of right shoulder (principal) | CPT/HCPCS: 20610; 99212; J1010 ==

== ENCOUNTER 2024-03-13 09:20 | Outpatient (AMB) | payer MEDICAID, SELFPAY ==
[2024-03-13 09:24] VITALS: BP 110/62; PULSE 80; BMI 25.3
--- NOTE | 2024-03-13 09:24 | A.OFFVIS_ITS ---
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 She has background of hypertension. She also had palpitations in the past. She underwent cardiac event monitor which did not show any significant arrhythmia. She actually had palpitations in sinus rhythm. It appears she also had stress testing done in the last few months. She is denying any chest discomfort. She said she had bronchitis which she has recovered from. No palpitations on follow-up. 12/23/2022: She returns for follow-up. She is denying chest pain or palpitation s. She continues to smoke 1 pack in 3 days. No chest discomfort shortness of breath overall feeling better. 03/13/2024: She returns for follow-up. She continues to smoke and pack is lasting her 1 week. We discussed about smoking cessation again. Last time I gave her Chantix but she said she did not use it. She is saying palpitations are improved. No other symptoms currently. [facility] Medical History GERD (gastroesophageal reflux disease) Chronic right shoulder pain Smoker Colon cancer Anemia Depression Colon cancer screening Surgical History Hx of cholecystectomy History of colon resection History of exploratory laparotomy History of excision of lesion History of dilation and curettage Hx of hysterectomy Hx of foot surgery Hx of section Hx of colonoscopy Family History Father FH: prostate cancer Paternal Aunt Breast cancer Social History Household Members: Spouse Are you a primary intensive care unit registered nurse to a significant other at home: No Do you presently have visiting nurse or other home services: No Alcohol intake: never Patient Tobacco Use Status: Current everyday Tobacco user Tobacco use type: Cigarette Cigarette Packs Per Day: 0.5 Cigarettes Per Day: 10.0 Years Smoked: 30 +/- Substance Use Type: Marijuana Female Reproductive History Menstrual Age of Menarche: 11 Review of Systems Const Denies chills, Denies fatigue, Denies fever(s), Denies frequent falls, Denies weakness, Denies weight gain and Denies weight loss ENT Denies dizziness Card Denies chest pain, Denies leg edema, Denies lightheadedness, Denies palpitations, Denies dyspnea and Denies dyspnea on exertion Resp Denies cough, Denies dyspnea and Denies dyspnea on exertion GI Denies hematochezia Musc Denies abnormal gait, Denies muscle weakness, Denies numbness, Denies radiating pain into limb and Denies tingling Neuro Denies abnormal gait, Denies dizziness, Denies frequent falls, Denies numbness, Denies tingling and Denies weakness Endo Denies fatigue and Denies palpitations Physical Exam Vital Signs: Last Vital Signs Pulse 80 03/13/24 09:24 BP 110/62 03/13/24 09:24 BMI result Body Mass Index 25.3 GENERAL APPEARANCE: in no acute distress, pleasant. NECK: no carotid bruit, no jugular venous distention. SKIN: no suspicious lesions, warm and dry. HEART: no murmurs, regular rate and rhythm. LUNGS: clear to auscultation bilaterally. ABDOMEN: soft, nontender. EXTREMITIES: no edema. PERIPHERAL PULSES: equal. NEUROLOGIC: No gross deficits, AAO X 3 Office Procedures EKG Details: Sinus rhythm 80 beats per minute, nonspecific ST segment changes, QTC 424 milliseconds. [id number], Complete Assessment & Plan Assessment & Plan (1) Tobacco use: Code(s): Z72.0 - Tobacco use Category: Social Hx (2) Palpitations: Code(s): R00.2 - Palpitations Category: Medical Plan Pleasant 54-year-old female with background history of hypertension and palpitations. She is currently on no medications for hypertension and blood pressure is well controlled. Palpitations are also improved and she is denying any symptoms currently. We discussed about smoking cessation on last visit and I gave her script for Chantix but she is saying she did not use it. We discussed again and she is interested. I will recent Chantix for her. She will see us back in 1 year. Thank you for allowing me to participate in the care of your patient. Please feel free to contact me if you have any questions. Medications: New varenicline (Chantix Starting Month Box) PO PER PKG DIR 53 ea 0RF Z72.0 - Tobacco use Coding Level of Care Code Est Pt Level 4 (52123) Diagnoses Tobacco use Z72.0 Palpitations R00.2 CPT Codes EKG - CPT: 02785-Xlaebfftnporwjecr, Complete ([id number])
== END 2024-03-13 09:47 | disposition home or self-care (01) ==
PROVIDERS: PCP Nurse Practitioner Primary Care; Visit Provider Internal Medicine Cardiovascular Disease
DX: Z72.0 Tobacco use (principal); R00.2 Palpitations
CPT/HCPCS: 93010; 99214

== ENCOUNTER → 2024-03-13 09:20 | Outpatient (BNVA) | payer MEDICAID, SELFPAY | PROVIDERS: PCP Nurse Practitioner Primary Care; Visit Provider Internal Medicine Cardiovascular Disease | DX: I10 Essential (primary) hypertension (principal); R00.2 Palpitations; F17.210 Nicotine dependence, cigarettes, uncomplicated | CPT/HCPCS: 93005; 99212 ==

== ENCOUNTER 2024-05-31 09:43 | Emergency (ER) | payer MEDICAID, SELFPAY ==
--- NOTE | ~2024-05-31 | XR_ITS ---
EXAMINATION: XR CHEST CLINICAL INFORMATION: Cough, SOB, CP COMPARISON: 10/13/2022 TECHNIQUE: 2 views of the chest were obtained. FINDINGS: The cardiac, hilar, and mediastinal contours are normal. The lungs are clear bilaterally. There is no pneumothorax or pleural effusion. There is no focal osseous or soft tissue abnormality. XR/XR chest 2V IMPRESSION: Normal chest. Electronically signed by: Jonathan Wilcox MD 05/31/2024 10:32 AM EDT
--- NOTE | 2024-05-31 09:46 | ECG_ITS ---
Test Reason : CHEST PAIN Blood Pressure : */* mmHG Vent. Rate : 81 BPM Atrial Rate : 81 BPM P-R Int : 140 ms QRS Dur : 80 ms QT Int : 364 ms P-R-T Axes : -12 33 47 degrees QTcB Int : 422 ms Normal sinus rhythm Normal ECG When compared with ECG of 13-Oct-2022 10:34, T wave inversion no longer evident in Inferior leads Referred By: Generic ED Physician Electronically Signed By: CHRIS JOYCE MD
[2024-05-31 09:55] VITALS: BP 154/79; PULSE 81; RESP 18; TEMP 36.7; O2SAT 96; BMI 23.8
[2024-05-31 10:10] LABS: MANUAL DIFF FLAG NO
[2024-05-31 10:11] LABS: Basophils Absolute Auto 0.1 X10*3/uL (0.0-0.2); Basophils Percent Auto 0.4 % (0-2); Eosinophils Absolute Auto 0.3 X10*3/uL (0.0-0.4); Eosinophils Percent Auto 1.8 % (0-4); Hematocrit 42.2 % (37.0-47.0); Hemoglobin 14.7 g/dl (12.0-16.0); Imm Gran Abs Auto 0.07 X10*3/uL (0.00-0.03); Imm Gran Pct Auto 0.5 % (0.0-0.4); Lymphocytes Absolute Auto 3.8 X10*3/uL (1.2-4.9); Lymphocytes Percent Auto 27.8 % (20-40); Mean Corpuscular HGB Conc 34.8 g/dl (31.0-35.0); Mean Corpuscular Hemoglobin 30.9 pg (27.0-33.0); Mean Corpuscular Volume 88.7 fL (80.0-98.0); Mean Platelet Volume 8.4 fL (9.4-12.3); Monocytes Absolute Auto 0.9 X10*3/uL (0.1-1.2); Monocytes Percent Auto 6.2 % (2-11); Neutrophils Absolute Auto 8.7 x10*3/uL (2.0-8.3); Neutrophils Percent Auto 63.3 % (45-73); Platelet Count 308 X10*3/uL (160-400); Red Blood Count 4.76 X10*6/uL (4.20-5.50); White Blood Count 13.8 X10*3/uL (4.8-10.8)
--- NOTE | 2024-05-31 10:17 | ED_ITS ---
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 (all interactions with this patient were facilitated with an [facility] state farm agent team member) Mode of arrival: ambulatory Limitations: language barrier (all interactions with this patient were facilitated with an [facility] state farm agent team member) History of Present Illness ED Provider: Ani Linda PA-C HPI narrative: Patient is a 54 year old assigned female at with a history of tobacco use, HTN, diverticulitis, and ovarian cysts presenting to the emergency department today with nasal congestion, cough, and intermittent chest pain. Patient states that yesterday she began to feel congested and having intermittent chest pain when coughing. Patient denies any dizziness, lightheadedness, abdominal pain, nausea, vomiting, fever, chills, blurry vision, double vision, loss of vision, difficulty breathing, shortness of breath, back pain, night sweats, pain with urination, increased urinary frequency, increased urinary urgency, blood in her urine or stool, syncope or a near syncopal episode, recent trauma or falls, bowel incontinence, bladder incontinence, or any other complaints at this time. Onset (ago): day(s) (1) Relieving factors: none Exacerbating factors: none Associated symptoms: chest pain (with coughing) and cough Treatments prior to arrival: none Related Data Home Medications ?Medication ?Instructions ?Recorded ?Confirmed atorvastatin 20 mg tablet 20 mg PO DAILY 07/15/22 03/13/24 docusate sodium 100 mg capsule 100 mg PO DAILY 03/13/24 03/13/24 (Colace) Previous Rx's ?Medication ?Instructions ?Recorded omeprazole 20 mg capsule,delayed 20 mg PO BID #60 caps 05/08/22 release acetaminophen 650 mg 650 mg PO Q8H PRN pain #45 tabs 10/13/22 tablet,extended release (Tylenol 8 Hour) varenicline tartrate 0.5 mg (11)-1 See Rx Instructions PO PER PKG DIR 03/13/24 mg (42) tablets in a dose pack #53 ea (Chantix Starting Month Box) Allergies Allergy/AdvReac Type Severity Reaction Status Date / Time aspirin [ASA] AdvReac Mild BRUISES Verified 05/31/24 09:59 Review of Systems 2 Constitutional: Constitutional: Reports no additional constitutional complaints, Denies chills, Denies fever(s) and Denies night sweats Eyes: Eyes: Reports no additional eye complaints, Denies blurry vision, Denies change in vision, Denies diplopia, Denies eye discharge, Denies loss of vision and Denies eye pain ENT: Denies dizziness and Reports nasal congestion Cardiovascular: Cardiovascular: Reports no additional cardiovascular complaints, Reports chest pain (with coughing), Denies lightheadedness, Denies Loss of Consciousness and Denies dyspnea Respiratory: Respiratory: Reports no additional respiratory complaints, Reports cough and Denies dyspnea Gastrointestinal: Gastrointestinal: Reports no additional gastrointestinal complaints, Denies abdominal pain, Denies melena, Denies hematochezia, Denies change in bowel habits and Denies change in stool character Genitourinary: Genitourinary: Denies hematuria, Denies urinary frequency, Denies dysuria, Denies urinary incontinence, Denies urinary hesitancy and Denies urinary urgency Musculoskeletal: Musculoskeletal: Reports no additional musculoskeletal complaints, Denies numbness and Denies tingling Neurologic: Denies dizziness, Denies loss of vision, Denies numbness and Denies tingling Psychiatric: Psychiatric: Reports no additional psychiatric complaints Endocrine: Endocrine: Reports no additional endocrine complaints Hematologic/Lymphatic: Hematologic/Lymphatic: Reports no additional hematologic/lymphatic complaints Allergic/Immunologic: Allergic/Immunologic: Reports no additional allergic/immunologic complaints PMF Past Medical History Attestation statement: The following information was validated with the patient. Source: old records reviewed and nursing notes reviewed Medical History GERD (gastroesophageal reflux disease) Chronic right shoulder pain Smoker Colon cancer Anemia Depression Colon cancer screening Surgical History Hx of cholecystectomy History of colon resection History of exploratory laparotomy History of excision of lesion History of dilation and curettage Hx of hysterectomy Hx of foot surgery Hx of section Hx of colonoscopy Family History Family History Father FH: prostate cancer Paternal Aunt Breast cancer Social History Social History Household Members: Spouse Are you a primary critical care unit nurse to a significant other at home: No Do you presently have visiting nurse or other home services: No Alcohol intake: never Patient Tobacco Use Status: Current everyday Tobacco user Tobacco use type: Cigarette Cigarette Packs Per Day: 0.5 Cigarettes Per Day: 10.0 Years Smoked: 30 +/- Substance Use Type: Marijuana Advance Directives: No Advance Directives Information Provided: Yes Physical Exam ED Vital Signs: Vital Signs - 24 hr 05/31/24 09:55 05/31/24 11:05 05/31/24 11:36 Temperature 98.0 F 97.6 F Pulse Rate 81 73 70 Respiratory Rate 18 18 18 Blood Pressure 154/79 H 128/76 121/74 Pulse Oximetry 96 97 96 Oxygen Delivery Method Room Air Room Air Room Air BMI result Body Mass Index 23.8 Const General: cooperative, no acute distress, alert and awake Nutritional Appearance: well nourished Orientation/consciousness: patient oriented x3 Limitations: no limitations HENMT Head: Yes normal to inspection and Yes atraumatic Ears: hearing grossly normal bilaterally and external ears normal General nose exam: Normal external nose present, no nasal discharge noted and no epistaxis Face and sinus: Yes normal facial exam, No abrasion and No laceration Mouth: Normal oral and palatal mucosa present, no drooling and no muffled voice Eyes General: appearance normal, both eyes and all related structures Periorbital: periorbital findings normal Eyelids: Yes eyelids normal Conjunctivae: conjunctivae normal Pupils: Equal, round and reactive pupils present EOM: EOMs intact bilaterally Neck Neck: Yes normal visual inspection, Yes full ROM and Yes no lymphadenopathy Chest Chest palpation & inspection: normal inspection of the chest Resp Effort & Inspection: normal respiratory effort and able to speak in complete sentences GI Inspection: Yes normal to inspection Neuro General: patient oriented x3, moves all extremities and CN's II-XI intact bilaterally Cranial nerves: Yes Equal, round and reactive pupils present Cognition (Neuro): normal cognition Extrem General: Yes normal to inspection, Yes full ROM and Yes capillary refill normal Psych Appearance: grossly normal Mental Status: mental status grossly normal Affect: normal affect Attitude: cooperative Thought process: Normal thought process present Thought content: Normal thought content present Insight: Good insight present (Psych) Medical Decision Making Medical Decision Making MDM Narrative: Patient is a 54 year old assigned female at with a history of tobacco use, HTN, diverticulitis, and ovarian cysts presenting to the emergency department today with nasal congestion, cough, and intermittent chest pain. Patient's physical exam was unremarkable. Patient's blood work showed a mild elevation of WBC at 13.8 but were otherwise unremarkable. Patient's EKG was unremarkable. Patient's chest x-ray showed no acute process. I explained my physical exam findings as well as all test results to the patient. I answered all questions asked by the patient. Patient's clinical presentation is most consistent with a viral illness. I stressed the importance of the patient taking her medication as directed (either prescribed or as the over the counter packaging recommends). I stressed the importance of the patient following up with her primary care provider. I stressed the importance of the patient returning to the emergency department immediately if her symptoms were to worsen or if she were to develop any dizziness, shortness of breath, difficulty breathing, chest pain, blurry vision, loss of vision, nausea, vomiting, abdominal pain, fever, chills, back pain, or any other complaints. Patient verbalized agreement and understanding with this treatment plan and discharge. Differential Diagnosis Differential Diagnoses: The differential diagnosis associated with the presentation includes Chest pain NSTEMI STEMI Viral illness COVID-19 Influenza RSV Admission/Observation Consideration of admission/observation: Escalation of care including admission/observation considered Patient would have been admitted to the hospital had her work up had any findings where hospital admission was appropriate and her clinical presentation warranted hospital admission. Lab Data [facility] Lab Attestation statement: I reviewed the patient's lab results. My interpretation of these results are in the [facility] Rationale portion of this note. 05/31/24 10:06 05/31/24 10:06 Labs: Lab Results 05/31/24 05/31/24 Range/Units 10:03 10:06 WBC 13.8 H (4.8-10.8) X10*3/uL RBC 4.76 (4.20-5.50) X10*6/uL Hgb 14.7 (12.0-16.0) g/dl Hct 42.2 (37.0-47.0) % MCV 88.7 (80.0-98.0) fL MCH 30.9 (27.0-33.0) pg MCHC 34.8 (31.0-35.0) g/dl RDW 13.0 (11.0-16.0) % Plt Count 308 (160-400) X10*3/uL MPV 8.4 L (9.4-12.3) fL Immature Gran % (Auto) 0.5 H (0.0-0.4) % Neut % (Auto) 63.3 (45-73) % Lymph % (Auto) 27.8 (20-40) % [place] % (Auto) 6.2 (2-11) % Eos % (Auto) 1.8 (0-4) % Baso % (Auto) 0.4 (0-2) % Lymph # (Auto) 3.8 (1.2-4.9) X10*3/uL [place] # (Auto) 0.9 (0.1-1.2) X10*3/uL Eos # (Auto) 0.3 (0.0-0.4) X10*3/uL Baso # (Auto) 0.1 (0.0-0.2) X10*3/uL Abs Immat Gran (auto) 0.07 H (0.00-0.03) X10*3/uL Absolute Neuts (auto) 8.7 H (2.0-8.3) x10*3/uL Absolute Nucleated RBC 0.000 (0.0-0.012) X10*3/uL Nucleated RBC % (auto) 0.0 (0.0-0.2) /100WBC Sodium 137 (135-145) mmol/L Potassium 3.7 (3.3-5.1) mmol/L Chloride 107 (96-108) mmol/L Carbon Dioxide 22 (22-29) mmol/L Anion Gap 12 (12-20) BUN 14 (9-16) mg/dL Creatinine 0.63 (0.5-1.4) mg/dL Estim Creat Clear Calc 86.0 Estimated GFR > 60 Random Glucose 106 (60-115) mg/dL Calcium 10.1 (8.4-10.2) mg/dL Troponin I High Sens < 2.7 (<3.5-17.0) ng/L Influenza Type A (PCR) NEGATIVE (Negative) Influenza Type B (PCR) NEGATIVE (Negative) RSV RNA Qual (PCR) NEGATIVE (Negative) SARS-CoV-2 RNA (RT-PCR) NEGATIVE (Negative) S. pyogenes GrpA HARVEY Negative (Negative) Independent Interpretation I performed an independent interpretation of an: EKG and Plain X-Ray Interpretation: My interpretation is in agreement with the radiologist's impression of this imaging study. L EXAMINATION: XR CHEST CLINICAL INFORMATION: Cough, SOB, CP COMPARISON: 10/13/2022 TECHNIQUE: 2 views of the chest were obtained. FINDINGS: The cardiac, hilar, and mediastinal contours are normal. The lungs are clear bilaterally. There is no pneumothorax or pleural effusion. There is no focal osseous or soft tissue abnormality. XR/XR chest 2V IMPRESSION: Normal chest. Electronically signed by: Jonathan Wilcox MD 05/31/2024 10:32 AM EDT RP Dictated By: Jonathan Wilcox MD Signed By: Electronically signed by Jonathan Wilcox MD 05/31/24 1032 I independently interpreted this EKG and am in agreement with the below findings: Vent. Rate: 81 BPM Atrial Rate: 81 BPM P-R Int: 140 ms QRS Dur: 80 ms QT Int: 364 ms P-R-T Axes: -12 33 47 degrees QTcB Int: 422 ms Normal sinus rhythm Normal ECG When compared with ECG of 13-Oct-2022 10:34, T wave inversion no longer evident in Inferior leads Electronically Signed By: PETER JOYCE MD Dictated By: Peter Joyce MD Signed By: Electronically signed by Peter Joyce MD 05/31/24 1107 Radiology Impression Discussion of test interpretation with radiology: I have reviewed the radiologist's reading. Discharge Plan Discharge Clinical Impression: Viral illness Patient Disposition: Home, Self-Care Instructions: Viral Syndrome (ED) Additional Instructions: Follow up with your primary care provider. Return to the emergency department immediately if your symptoms worsen or if you develop any dizziness, shortness of breath, difficulty breathing, chest pain, blurry vision, loss of vision, nausea, vomiting, abdominal pain, fever, chills, back pain, or any other complaints. Willow?seguimiento?con an m?dico de atenci?n primaria. Acuda inmediatamente al servicio de urgencias si joselyn s?ntomas empeoran o si presenta falta de aliento, dificultad para respirar, dolor tor?cico, mareos, aturdimiento, dolor de espalda, dolor abdominal, fiebre, escalofr?os o cualquier otro s?ntoma. Please see the information below about our Patient Portal. If you are not yet enrolled in the [facility] Patient Portal, you will receive an enrollment email invitation following your visit to any [facility] care setting. You may also self-enroll in the Patient Portal by visiting our website: [email or web address] The following information is required to access the Patient Portal: - Your [facility] Medical Record Number - Your personal home email address (must match what is in your electronic medical record, Registration staff can assist with this) - Name - Date of Capabilities of the Patient Portal: - Message some providers - View upcoming appointments - Access your health summary, medical history, and visit history - View current conditions and allergies - View procedure and lab results - View your medications, including guidelines, side effects, and precautions - Complete pre-appointment questionnaires requested by your provider - Ready summary reports of your office visits and procedures To access the Patient Portal Mobile [employer], follow these directions: - Search [employer] in the [employer] Store or [facility] - Download the [employer] - Search for [facility] - Enter your login/password Portal del paciente Si usted no esta inscrito en el portal de pacientes de [facility], recibira yohana invitacion de inscripcion despues de an visita al [facility] o al [facility] via correo electronico. Tambien puede inscribirse voluntariamente en el portal de pacientes visitando nuestra pagina web: [email or web address] La siguiente informacion sera requerida para acceder al portal: - An hong de historia medica de [facility] - An direccion de correo electronico personal - Nombre - Fecha de nacimiento Capacidades: Las siguientes capacidades estan disponibles en el portal de pacientes: - Enviar mensajes a algunos doctores - Verificar proximas citas - Acceso a an historial de beka, registro medico e historial de visitas - Jose Luis las condiciones actuales y alergias jose luis procedimientos y resultados del laboratorio - Jose Luis joselyn medicamentos, incluyendo las pautas - Efectos secundarios y precauciones - Completar o llenar formularios / cuestionarios de - Citas solicitadas por an doctor - Leer los resumenes de reportes medicos de joselyn visitas y procedimientos [place] acceder a la aplicacion movil: - [employer] en la [employer] Store o [facility] - Descargue la aplicacion - [facility] - Ingrese an nombre de usuario / Contrasena Prescriptions: No Action acetaminophen [Tylenol 8 Hour] 650 mg tablet extended release 650 mg PO Q8H PRN (Reason: pain) Qty: 45 0RF omeprazole 20 mg capsule,delayed release(DR/EC) 20 mg PO BID Qty: 60 6RF atorvastatin 20 mg tablet 20 mg PO DAILY docusate sodium [Colace] 100 mg capsule 100 mg PO DAILY varenicline tartrate [Chantix Starting Month Box] 0.5 mg (11)- 1 mg (42) tablets,dose pack See Rx Instructions PO PER PKG DIR Qty: 53 0RF Rx Instructions: PO PER PKG DIR Referrals: Mirian Altamirano NP [Primary Care Provider] - Interventions: ED Discharge Assessment Last Done: 05/31/24 11:36 Discharge Date/Time: 05/31/24 11:45 Print Language: Hungarian
[2024-05-31 10:23] LABS: IDNOW Serial# 58CA691E; Strep A Nucleic Acid Negative (Negative)
[2024-05-31 10:37] LABS: Anion Gap 12 (12-20); Blood Urea Nitrogen 14 mg/dL (9-16); Calcium 10.1 mg/dL (8.4-10.2); Carbon Dioxide 22 mmol/L (22-29); Chloride 107 mmol/L (96-108); Estimated Glomerular Filt Rate > 60; Glucose Random 106 mg/dL (60-115); Potassium 3.7 mmol/L (3.3-5.1); Sodium 137 mmol/L (135-145)
[2024-05-31 11:05] VITALS: BP 128/76; PULSE 73; RESP 18; O2SAT 97
[2024-05-31 11:20] LABS: Influenza A PCR NEGATIVE (Negative); Influenza B PCR NEGATIVE (Negative); Resp Syncy Virus RNA Qual PCR NEGATIVE (Negative); SARS COV2 PCR INHOUSE NEGATIVE (Negative)
[2024-05-31 11:27] LABS: Troponin-I High Sensitivity < 2.7 ng/L (<3.5-17.0)
[2024-05-31 11:36] VITALS: BP 121/74; PULSE 70; RESP 18; TEMP 36.4; O2SAT 96
--- OUTSIDE RECORDS SUMMARY | 2024-05-31 12:23 | XMS_ITS | Clinical Summary ---
Author Organization [employer] Address [address] [place] [address] Care Team Providers Care Financial Analysis Advisor Name Role Phone Isai Caba Primary Care Provider [phone] Allergies Active Allergy Reactions Criticality Noted Date Comments Aspirin Low 03/18/2016 Other reaction(s): BRUISES, Bruising, rash/bruising Medications lidocaine (Lidoderm) 5 % patch apply 1 patch by transdermal route every day (May wear up to 12hours.) 01/31/20 21 Active nicotine (Nicoderm, Step 2) 14 MG/24HR patch apply 1 patch by transdermal route every day 11/13/19 21 Active nicotine (Nicoderm, Step 3) 7 MG/24HR patch apply 1 patch by transdermal route every day 11/13/19 21 Active Varenicline Tartrate, Starter, (Chantix Starting Month ) 0.5 MG X 11 & 1 MG X 42 tablet therapy pack Take 1 (0.5mg) tablet oral route day 1-3; take 1 (0.5mg) tablet days 4-7 twice a day, then take 1 (1mg) tablet twice a day for 11 weeks. 01/21/20 20 Active zoster vaccine-recombinan t adjuvanted (Shingrix) 50 MCG/0.5ML vaccine inject 0.5 milliliter by intramuscular route once 01/03/20 20 Active cholecalciferol (Vitamin D-3) 50 MCG (1999) tabletIndications: Vitamin D deficiency TOME ROX TABLETA TODOS [place] 90 tablet 03/13/19 23 Active atorvastatin (Lipitor) 20 MG tabletIndications: Hyperlipidemia, unspecified hyperlipidemia type Take 1 tablet (20 mg) by mouth in the morning. 90 tablet 3 07/03/19 23 Active nicotine (Nicoderm CQ) 14 MG/24HR patch Place 1 patch on the skin 1 (one) time each day at the same time. 42 patch 12/15/19 24 Active nicotine (Nicoderm CQ) 7 MG/24HR patch Place 1 patch on the skin 1 (one) time each day at the same time. 14 patch 12/15/19 24 Active nicotine polacrilex (Commit) 2 MG lozenge Dissolve 1 lozenge (2 mg) in the mouth if needed for smoking cessation. 100 lozenge 12/15/19 24 Active albuterol 108 (90 Base) MCG/ACT inhaler Inhale 2 puffs every 4 (four) hours if needed for wheezing or shortness of breath. 18 g 1 12/15/19 24 025 Active Spacer/Aero-Holdin g Chambers (OptiChamber Ibis) misc 1 each every 4 (four) hours if needed (asthma). 1 each 12/15/19 24 Active Active Problems Problem Noted Date Diagnosed Date Tobacco dependence 12/15/2023 Hot flashes 07/02/2022 Hemorrhoids 07/02/2022 GERD (gastroesophageal reflux disease) 3 Diverticulitis 07/02/2022 Abdominal bloating 07/02/2022 Complex ovarian cyst 07/02/2022 Colon cancer 07/02/2022 Overview (07/02/2022): [id number] arising in a villous adenoma Chest pain 07/02/2022 Bronchitis 07/02/2022 Adnexal fullness 07/02/2022 Essential hypertension 05/04/2022 Anemia 04/27/2012 Depressive disorder 04/27/2012 Menometrorrhagia 04/27/2012 Encounters Date Type Department Care Team Description 05/31/2024 Orders Only [facility] External Provider, [facility] 04/28/2024 Population Health Risk Score [facility] Department [address] [place] [address] Provider, Population Health Generic from Last 3 Months Immunizations Name Administration Dates Next Due Influenza Injectable Quadriv alant Preservative Free IIV4 MDCK 01/04/2020 Influenza injectable quadriv alent preservative free 12/15/2021,11/12/2020,03/18/2016 Influenza, IIV3, injectable 12/06/2013, 9 Influenza, Split (incl. lalita fied surface antigen) 12/06/2012 Moderna Covid-19 Vaccine 12+ 07/03/2020,06/06/19 21 Pfizer Covid-19 Vaccine 12+ 03/03/2021 Pfizer Covid-19 Vaccine 12+ Bivalent 12/15/2021 Pneumococcal Polysaccharide PPSV23 12/06/2013 TD (adult), 2 Lf tetanus tox oid, preservative free, adsorbed 08/29/2002 Tdap 03/18/2016 Zoster, Recombinant 03/05/2020,01/04/2020 Social History Tobacco Use Types Packs/Day Years Used Date Smoking Tobacco: Every Day Cigarettes Smokeless Tobacco: Never Tobacco Cessation:Ready to Q uit: Not Asked; Counseling Given: Not Answered Alcohol Use Standard Drinks/Week Comments Not Currently 0 (1 standard drink = 0.6 oz pur e alcohol) Comments Unknown Sex and Gender Information Value Date Recorded Sex Assigned at Female 12/15/2021 10:17 AM EDT Legal Sex Female 10:17 AM EDT Gender Identity Female 12/15/2021 10:17 AM EDT Sexual Orientation Straight 12/15/2021 10 :17 AM EDT Last Filed Vital Signs Vital Sign Reading Time Taken Comments Blood Pressure 121/78 12/15/2023 10:55 AM EDT Pulse 95 12/15/2023 10:55 AM EDT Temperature 36.1 ??C (96.9 ??F) 12/15/2023 10:55 AM E DT Respiratory Rate 18 12/15/2023 10:55 AM EDT Oxygen Saturation 95% 12/15/2023 10:55 AM EDT Inhaled Oxygen Concentration - - Weight 62.9 kg (138 lb 9.6 oz) 12/15/2023 10:55 AM EDT Height 162.6 cm (5' 4 ) 07/02/2022 9:30 AM EDT Body Mass Index 23.79 07/02/2022 9:30 AM EDT Plan of Treatment Health Maintenance Due Date Last Done Comments CT Colonography 1968 Depression Screening 1968 FIT DNA/Cologuard 1968 FIT 1968 FOBT 1968 SDOH Screening 1968 Sigmoidoscopy 1968 Alcohol/Substance Use Screening 1980 Hepatitis B Vaccines (1 of 3 - 19+ 3-dose series) 1987 Pap Smear 1989 Cervical Cancer Screening 1998 HPV/Cotest 1998 Pneumococcal Vaccine: 50+ Years (2 of 2 - PCV) 12/06/2014 12/06/2013 COVID-19 Vaccine ( - season) 2023 12/15/2021, 03/03/2021, 07/03/2020, Additional history exists Influenza Vaccine (#1) 2023 , 11/12/2020, 01/04/2020, Additional history exists Mammogram 10/14/2024 10/15/2023, 09/17, 04/16/2022, Additional history exists Tobacco Screening 12/14/2024 12/15/2023 DTaP/Tdap/Td Vaccines (2 - Td or Tdap) 03/18/2026 03/18/2016, 08/29/2002 Colonoscopy 12/16/2026 Colorectal Cancer Screening 12/16/2026 Lipid Panel 12/25/2026 12/25/2021, 11/15, 01/10/2020 RSV Patients and Patients Aged 60 years or older (1 - 1-dose 75+ series) 2043 Zoster Vaccines Completed 03/05/2020, 01/04/2020 HIV Screening Completed 12/25/2021, 06/16, 11/28/2020 Hepatitis C Screening Completed 12/25/2021, 020 HIB Vaccines Aged Out No longer eligi ble based on patient's age to complete this topic HPV Vaccines Aged Out No longer eligi ble based on patient's age to complete this topic Hepatitis A Vaccines Aged Out No long er eligible based on patient's age to complete this topic IPV Vaccines Aged Out No longer eligi ble based on patient's age to complete this topic Meningococcal Vaccine Aged Out No tim suad eligible based on patient's age to complete this topic RSV under 20 months Aged Out No longe r eligible based on patient's age to complete this topic Rotavirus Vaccines Aged Out No longer eligible based on patient's age to complete this topic Procedures Procedure Name Priority Date/Time Associated Diagnosis Comments HIGH SENSITIVITY TROPONIN I Routine 05/31/2024 10:06 AM EDT BASIC METABOLIC PANEL Routine 05/31/2024 10:06 AM EDT CBC WITH AUTO DIFFERENTIAL Routine 05/31/2024 10:06 AM EDT SARS COV2/INFLUENZA A/B AND RSV RNA QL NAAT Routine 05/31/2024 10:03 AM EDT STREP A NUCLEIC ACID Routine 05/31/2024 10:03 AM EDT XR CHEST 2 VIEWS Routine 05/31/2024 10:0 0 AM EDT BI MAMMOGRAM SCREENING TOMOSYNTHESIS BILATERAL Routine 10/15/2023 11:02 AM EDT ZZZ HISTORICAL HEPATITIS C AB W/REFL TO HCV RNA, QN, PCR Routine 12/25/2021 8:14 AM EST HIV 1/2 ANTIGEN/ANTIBODY, FOURTH GENERATION W/RFL Routine 12/25/2021 8:14 AM EST LIPID PANEL, STANDARD Routine 12/25/2021 8:14 AM EST from Last 3 Months or Most Recently Relevant to Health Maintenance Results * High Sensitivity Troponin I (05/31/2024 10:06 AM EDT) TROPONIN I HIGH SENSITIVITY <2.7 <3.5 - 17.0 ng/L [facility] Comment:The [place] high sens itivity Troponin-I results should beused in conjunction with other diagnostic information suchas ECG, clinical observations and information, and patientsymptoms to aid in the diagnosis of AR. 05/31/2024 10:0 6 AM EDT 05/31/2024 11:01 AM EDT us Generic External Data Provider LAB BLOOD ORDERAB LES Final Result [facility] [address] [place] [phone] * (ABNORMAL) CBC auto differential (05/31/2024 10:06 AM EDT) White Blood Count 13.8(H) 4.8 - 10.8 X10*3/uL [facility] Red Blood Count 4.76 4.20 - 5.50 X10*6/uL [facility] Hemoglobin 14.7 12.0 - 16.0 g/dl [facility] Hematocrit 42.2 37.0 - 47.0 % [facility] Mean Corpuscular Volume 88.7 80.0 - 98.0 fL [facility] Mean Corpuscular Hemoglobin 30.9 27.0 - 33.0 pg [facility] Mean Corpuscular HGB Conc 34.8 31.0 - 35.0 g/dl [facility] Red Cell Distribution Width 13.0 11.0 - 16.0 % [facility] Platelet Count 308 160 - 400 X10*3/uL [facility] Mean Platelet Volume 8.4(L) 9.4 - 12.3 fL [facility] Neutrophils Percent Auto 63.3 45 - 73 % [facility] Imm Gran Pct Auto 0.5(H) 0.0 - 0.4 % [facility] Lymphocytes Percent Auto 27.8 20 - 40 % [facility] Monocytes Percent Auto 6.2 2 - 11 % [facility] Eosinophils Percent Auto 1.8 0 - 4 % [facility] Basophils Percent Auto 0.4 0 - 2 % [facility] NRBC Pct Auto 0.0 0.0 - 0.2 /100WBC [facility] Neutrophils Absolute Auto 8.7(H) 2.0 - 8.3 x10*3/uL [facility] Imm Gran Abs Auto 0.07(H) 0.00 - 0.03 X10*3/uL [facility] Lymphocytes Absolute Auto 3.8 1.2 - 4.9 X10*3/uL [facility] Monocytes Absolute Auto 0.9 0.1 - 1.2 X10*3/uL [facility] Eosinophils Absolute Auto 0.3 0.0 - 0.4 X10*3/uL [facility] Basophils Absolute Auto 0.1 0.0 - 0.2 X10*3/uL [facility] NRBC Abs Auto 0.000 0.0 - 0.012 X10*3/uL [facility] 05/31/2024 10:0 6 AM EDT 05/31/2024 10:08 AM EDT us Generic External Data Provider LAB BLOOD ORDERAB LES Final Result [facility] [address] [place] [address] [phone] * Basic Metabolic Panel (05/31/2024 10:06 AM EDT) Sodium 137 135 - 145 mmol/L [facility] Potassium 3.7 3.3 - 5.1 mmol/L [facility] Chloride 107 96 - 108 mmol/L [facility] Carbon Dioxide 22 22 - 29 mmol/L [facility] Anion Gap 12 12 - 20 [facility] Urea Nitrogen (BUN) 14 9 - 16 mg/dL [facility] Creatinine, Serum 0.63 0.5 - 1.4 mg/dL [facility] Creatinine Clr Calc Pharmacy 86.0 [facility] Comment:Provided height and weight: 162.56 cm,63 kg.eGFR (calculated from the MDRD study equation) and eCrCl(calculated from the Cockcroft-Gault equation) are based ondifferent parameters and may not yield comparable results.If eCrCl result is absurd, please check patient'sheight/weight. Estimated Glomerular Filt Rate >60 [facility] Comment:Chronic Kidney Disea se: Estimated GFR < 60 mL/min/1.07a9[place]onk Kidney Disease: Estimated GFR < 15 mL/min/1.73m2 Glucose 106 60 - 115 mg/dL [facility] Calcium 10.1 8.4 - 10.2 mg/dL [facility] 05/31/2024 10:0 6 AM EDT 05/31/2024 10:08 AM EDT Generic External Data Provider LAB BLOOD ORDERAB LES Final Result Performing Organization Address [facility] Co de Phone Number [facility] [address] [place] [phone] * Strep A Nucleic Acid (05/31/2024 10:03 AM EDT) IDNOW SERIAL# [id number] [facility] Strep A Nucleic Acid Negative Negative [facility] Comment:All test results mus t be correlated with clinical findings.This test has not been evaluated for monitoring treatment ofinfection.Additional follow-up testing using the culture method isrequired if the result is negative and clinical symptomspersist, or in the event of an acute rheumatic feveroutbreak. 05/31/2024 10:0 3 AM EDT 05/31/2024 10:08 AM EDT Generic External Data Provider LAB MICROBIOLOGY - GENERAL ORDERABLES Final Result Performing Organization Address [facility] de Phone Number [facility] [address] [place] [phone] * SARS-CoV-2 RNA, Influenza A/B, and RSV RNA, Ql NAAT (05/31/2024 10:03 AM EDT) Influenza A PCR NEGATIVE Negative [facility] Influenza B PCR NEGATIVE Negative [facility] Resp Syncy Virus RNA Qual PCR NEGATIVE Negative [facility] SARS COV2 PCR NEGATIVE Negative [facility] Comment:All test results mus t be correlated with clinical findings.Negative results do not preclude SARS-CoV2, influenza Avirus, influenza B virus and/or RSV infectionand should not be used as the sole basis for treatment orother patient management decisions. Negative results must becombined with clinical observations, patient history, andepidemiological information.This test has not been evaluated for monitoring treatment ofinfection.This test has been authorized by the FDA under an EmergencyUse Authorization (EUA) for use by authorized laboratories.Testing performed on the Bazari GeneXpert utilizingreal-time RT-PCR.All SARS CoV2 and positive influenza A/B results arereported to [facility]. 05/31/2024 10:0 3 AM EDT 05/31/2024 10:08 AM EDT us Generic External Data Provider LAB MICROBIOLOGY - GENERAL ORDERABLES Final Result Performing Organization Address City/State/[facility] Co de Phone Number [facility] [address] [place] [address] [phone] * XR Chest 2 Views (05/31/2024 10:00 AM EDT) Anatomical Region Laterality Modality Chest Radiographic Edith ging 05/31/2024 10:0 0 AM EDT Narrative 05/31/2024 10:34 AM EDT ? [facility] ?[address] ?[place] [address] ?XRay Report ? Signed ? Patient: Gaetan,Ciarra ?MR#: [id number] ?? 716 ? : 1970 ?Acct:[id number] ? Age/Sex: 54 / F ?ADM Date: 05/31/24 ? Loc: HO.ED ? Attending Dr: ? Ordering Physician: Generic ED Physician ?? Date of Service: 05/31/24 ?? Procedure(s): XR chest 2V ?? Accession Number(s): [id number] ? cc: Generic ED Physician; ISAI CABA NP ? EXAMINATION: ?? XR CHEST ? CLINICAL INFORMATION: ?? Cough, SOB, CP ? COMPARISON: ?? 10/13/2022 ? TECHNIQUE: ?? 2 views of the chest were obtained. ? FINDINGS: ?? The cardiac, hilar, and mediastinal contours are normal. ? The lungs are clear bilaterally. There is no pneumothorax or pleural ?? effusion. ? There is no focal osseous or soft tissue abnormality. ? XR/XR chest 2V ?? IMPRESSION: ?? Normal chest. ? Electronically signed by: ??Jonathan Wilcox MD ??05/31/2024 10:32 AM EDT RP ? Dictated By: ?Jonathan Wilcox MD ? Signed By: ?<Electronically signed by Jonathan Wilcox MD in OV> ?05/31/24 1032 ? DD/ 1000 ? TD/TT: 05/31/24 1019 ? Contact Center Manager: ? Procedure Note Santos, David - 05/31/[address] [address] XRay Report Signed Patient: Gumaro Finn#: [id number] 716 : 1970Acct:[id number] Age/Sex: 54 / FADM Date: 05/31/24 Loc: HO.ED Attending Dr: Ordering Physician: Generic ED Physician Date of Service: 05/31/24 Procedure(s): XR chest 2V Accession Number(s): [id number] cc: Generic ED Physician; ISAI CABA NP EXAMINATION: XR CHEST CLINICAL INFORMATION: Cough, SOB, CP COMPARISON: 10/13/2022 TECHNIQUE: 2 views of the chest were obtained. FINDINGS: The cardiac, hilar, and mediastinal contours are normal. The lungs are clear bilaterally. There is no pneumothorax or pleural effusion. There is no focal osseous or soft tissue abnormality. XR/XR chest 2V IMPRESSION: Normal chest. Electronically signed by: Jonathan Wilcox MD 05/31/2024 10:32 AM EDT RP Dictated By: Jonathan Wilcox MD Signed By: <Electronically signed by Jonathan Wilcox MD in OV> 05/31/24 1032 DD/ 1000 TD/TT: 05/31/24 1019 Contact Center Manager: [facility] External Provider IMG XR PROCEDURES Final Result * BI Mammogram Screening Tomosynthesis Bilateral (10/15/2023 11:02 AM EDT) Anatomical Region Laterality Modality Breast Bilateral Mammography 10/15/2023 11:0 2 AM EDT Narrative 11/05/2023 10:57 PM EDT ? [facility] ? [address] ?[place] [address] ? Mammography Report ? Signed ? Patient: Gaetan,Ciarra ?MR#: [id number] ?? 716 ? : 1970 ?Acct:[id number] ? Age/Sex: 53 / F ?ADM Date: 10/15/23 ? Loc: HO.MAMMO ? Attending Dr: Isai Caba CAN MARKER ? Ordering Physician: GERTRUDIS,ISAI MORGAN ?Results: 1Negative ? Date of Service: 10/15/23 ?Follow Up: 1 Year From Orig ?? inal Mammogram ? Procedure(s): MM tomosynthesis screening BI ?? Accession Number(s): [id number] ? cc: GERTRUDIS,ISAI MORGAN ? EXAMINATION: ?? MM SCREENING DIGITAL BREAST TOMOSYNTHESIS, BILATERAL ? CLINICAL INFORMATION: ? Screening. Asymptomatic. ? COMPARISON: ?? Mammography: Comparison is made with available priors ? TECHNIQUE: ?? Digital breast tomosynthesis is performed in both the craniocaudal and ?? mediolateral oblique views along with computer-aided detection (CAD). ? Synthesized 2D images are generated from the tomosynthesis. ? FINDINGS: ?? The breasts are heterogeneously dense, which may obscure small masses ?? (ACR BI-RADS breast composition Category c). ? There are no significant masses, abnormal calcifications, or other ?? abnormalities. ? MM/MM tomosynthesis screening BI ?? IMPRESSION: ?? No mammographic evidence of malignancy. ? ASSESSMENT: ? BI-RADS BI-RADS 1 - Negative ? RECOMMENDATION: ?? Routine annual mammography screening. ? 1 year F/U ? This examination should not preclude the clinical evaluation of a ?? suspicious palpable abnormality. ? This patient's information was entered into a reminder system with a ?? target due date for their next mammogram. ? Electronically signed by: ??Ilene Pruett DO ??11/05/2023 10:54 PM EDT ? Dictated By: ?Ilene Pruett DO ? Signed By: ?<Electronically signed by Ilene Pruett, DO in OV> ? 11/05/23 2254 ? DD/ 1102 ? TD/TT: 10/15/23 1114 ? Contact Center Manager: ? Procedure Note Santos, Image - 11/05/2023 [facility] [address] [place] [address] Mammography Report Signed Patient: Gumaro Finn#: [id number] 716 : 1970Acct:[id number] Age/Sex: 53 / FADM Date: 10/15/23 Loc: HO.MAMMO Attending Dr: Isai Caba CAN MARKER Ordering Physician: ISAI CABAesults: 1Negative Date of Service: 10/15/23Follow Up: 1 Year From Orig inal Mammogram Procedure(s): MM tomosynthesis screening BI Accession Number(s): [id number] cc: ISAI CABA NP EXAMINATION: MM SCREENING DIGITAL BREAST TOMOSYNTHESIS, BILATERAL CLINICAL INFORMATION: Screening. Asymptomatic. COMPARISON: Mammography: Comparison is made with available priors TECHNIQUE: Digital breast tomosynthesis is performed in both the craniocaudal and mediolateral oblique views along with computer-aided detection (CAD). Synthesized 2D images are generated from the tomosynthesis. FINDINGS: The breasts are heterogeneously dense, which may obscure small masses (ACR BI-RADS breast composition Category c). There are no significant masses, abnormal calcifications, or other abnormalities. MM/MM tomosynthesis screening BI IMPRESSION: No mammographic evidence of malignancy. ASSESSMENT: BI-RADS BI-RADS 1 - Negative RECOMMENDATION: Routine annual mammography screening. 1 year F/U This examination should not preclude the clinical evaluation of a suspicious palpable abnormality. This patient's information was entered into a reminder system with a target due date for their next mammogram. Electronically signed by: Ilene Pruett DO 11/05/2023 10:54 PM EDT RP Dictated By: Ilene Pruett DO Signed By: <Electronically signed by Ilene Pruett DO in OV> 11/05/23 2254 DD/ 1102 TD/TT: 10/15/23 1114 Contact Center Manager: us Isai Caba ANP IMG BI PROCEDURES Edited Result - Final * HEPATITIS C AB W/REFL TO HCV RNA, QN, PCR (12/25/2021 8:14 AM EST) HEPATITIS C ANTIBODY NON-REACTI VE NON-REACT NIC [facility] INDEX 0.04 <1.00 [facility] Comment: ?? HCV antibody was non-reactive. There is no laboratory ?? evidence of HCV infection. ?? In most cases, no further action is required. However, if recent HCV exposure is suspected, a test for HCV RNA (test code 75166) is suggested. ?? For additional information please refer to http://education.AudioCaseFiles.[employer]/faq/QGN17v8 (This link is being provided for informational/ educational purposes only.) ?? 12/25/2021 8:14 AM EST us Isai Caba ANP HISTORICAL/NON ORDERABLE LABS Fi nal Result [facility] * HIV 1/2 ANTIGEN/ANTIBODY,FOURTH GENERATION W/RFL (12/25/2021 8:14 AM EST) Pathologist [facility] HIV-1/2 ANTIGEN AND ANTIBODIES, 4TH GENERATION W/ REFLEX NON-REACT NIC NON-REACT NIC [facility] Comment: HIV-1 antigen and HIV-1/HIV-2 antibodies were not detected. There is no laboratory evidence of HIV infection. ?? PLEASE NOTE: This information has been disclosed to you from records whose confidentiality may be protected by state law. ??If your state requires such protection, then the state law prohibits you from making any further disclosure of the information without the specific written consent of the person to whom it pertains, or as otherwise permitted by law. A general authorization for the release of medical or other information is NOT sufficient for this purpose. ? For additional information please refer to http://Conformity.Google/faq/SDQ478 (This link is being provided for informational/ educational purposes only.) ? The performance of this assay has not been clinically validated in patients less than 2 years old. ?? 12/25/2021 8:14 AM EST [facility] LAB BLOOD ORDERABLES Final Resul t [facility] * (ABNORMAL) LIPID PANEL, STANDARD (12/25/2021 8:14 AM EST) Pathologist [facility] Chol/HDLC Ratio 4.0 <5.0 (calc) [facility] Cholesterol, Total 181 <200 mg/dL [facility] HDL Cholesterol 45(L) > OR = 50 mg/dL [facility] LDL Cholesterol 116(H) mg/dL (calc) [facility] Comment: Reference range: <100 ?? Desirable range <100 mg/dL for primary prevention; ?? <70 mg/dL for patients with CHD or diabetic patients ?? with > or = 2 CHD risk factors. ?? LDL-C is now calculated using the Kierra ?? calculation, which is a validated novel method providing ?? better accuracy than the Friedewald equation in the ?? estimation of LDL-C. ?? Mainor CORONA et al. SHELLI. 2013;310(19): 7581-6036 ?? (http://education.StartBull.[employer]/faq/JTM366) Non-HDL Cholesterol 136(H) <130 mg/dL (calc) [facility] Comment: For patients with diabetes plus 1 major ASCVD risk ?? factor, treating to a non-HDL-C goal of <100 mg/dL ?? (LDL-C of <70 mg/dL) is considered a therapeutic ?? option. Triglycerides 92 <150 mg/dL [facility] 12/25/2021 8:14 AM EST [facility] LAB BLOOD ORDERABLES Final Resul t [facility] from Last 3 Months or Most Recently Relevant to Health Maintenance Insurance [employer] Care Teams Financial Analysis Advisor Relationship Specialty Start Date End Date Isai Caba ANP [address] [facility] [place] [phone] PCP - General Family Medicine 10/03/20
--- OUTSIDE RECORDS SUMMARY | 2024-05-31 12:23 | XMS_ITS | Encounter Summary ---
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 Operator Name Role Phone Isai Caba Primary Care Provider [phone] Encounter Details Date Type Department Care Team ([facility] st Contact Info) Description 05/31/2024 Orders Only [facility] External Provider, [facility] Social History Tobacco Use Types Packs/Day Years Used Date Smoking Tobacco: Every Day Cigarettes Smokeless Tobacco: Never Alcohol Use Standard Drinks/Week Comments Not Currently 0 (1 standard drink = 0.6 oz pur e alcohol) Comments Unknown Sex and Gender Information Value Date Recorded Sex Assigned at Female 12/15/2021 10:17 AM EDT Legal Sex Female 10:17 AM EDT Gender Identity Female 12/15/2021 10:17 AM EDT Sexual Orientation Straight 12/15/2021 10 :17 AM EDT documented as of this encounter Plan of Treatment Not on file documented as of this encounter Procedures Procedure Name Priority Date/Time Associated Diagnosis Comments HIGH SENSITIVITY TROPONIN I Routine 05/31/2024 10:06 AM EDT BASIC METABOLIC PANEL Routine 05/31/2024 10:06 AM EDT SARS COV2/INFLUENZA A/B AND RSV RNA QL NAAT Routine 05/31/2024 10:03 AM EDT XR CHEST 2 VIEWS Routine 05/31/2024 10:0 0 AM EDT documented in this encounter Results * High Sensitivity Troponin I (05/31/2024 10:06 AM EDT) Pathologist [facility] TROPONIN I HIGH SENSITIVITY <2.7 <3.5 - 17.0 ng/L [facility] Comment:The [place] high sens itivity Troponin-I results should beused in conjunction with other diagnostic information suchas ECG, clinical observations and information, and patientsymptoms to aid in the diagnosis of NM. 05/31/2024 10:0 6 AM EDT 05/31/2024 11:01 AM EDT us Generic External Data Provider LAB BLOOD ORDERAB LES Final Result [facility] [address] [place] [phone] * Basic Metabolic Panel (05/31/2024 10:06 AM EDT) [facility] Sodium 137 135 - 145 mmol/L [facility] Potassium 3.7 3.3 - 5.1 mmol/L [facility] Chloride 107 96 - 108 mmol/L [facility] Carbon Dioxide 22 22 - 29 mmol/L [facility] Anion Gap 12 12 - 20 [facility] Urea Nitrogen (BUN) 14 9 - 16 mg/dL [facility] Creatinine, Serum 0.63 0.5 - 1.4 mg/dL [facility] Creatinine Clr Calc Pharmacy 86.0 [facility] Comment:Provided height and weight: 162.56 cm,63 kg.eGFR (calculated from the MDRD study equation) and eCrCl(calculated from the Cockcroft-Gault equation) are based ondifferent parameters and may not yield comparable results.If eCrCl result is absurd, please check patient'sheight/weight. Estimated Glomerular Filt Rate >60 [facility] Comment:Chronic Kidney Disea se: Estimated GFR < 60 mL/min/[id number] Kidney Disease: Estimated GFR < 15 mL/min/1.73m2 Glucose 106 60 - 115 mg/dL [facility] Calcium 10.1 8.4 - 10.2 mg/dL [facility] 05/31/2024 10:0 6 AM EDT 05/31/2024 10:08 AM EDT Generic External Data Provider LAB BLOOD ORDERAB LES Final Result Performing Organization Address [facility] Co de Phone Number [facility] [address] [place] [phone] * SARS-CoV-2 RNA, Influenza A/B, and RSV RNA, Ql NAAT (05/31/2024 10:03 AM EDT) Influenza A PCR NEGATIVE Negative [facility] Influenza B PCR NEGATIVE Negative [facility] Resp Syncy Virus RNA Qual PCR NEGATIVE Negative [facility] SARS COV2 PCR NEGATIVE Negative [facility] Comment:All test results mus t be [...] use by authorized laboratories.Testing performed on the [employer] GeneXpert utilizingreal-time RT-PCR.All SARS CoV2 and positive influenza A/B results arereported to [facility]. 05/31/2024 10:0 3 AM EDT 05/31/2024 10:08 AM EDT Generic External Data Provider LAB MICROBIOLOGY - GENERAL ORDERABLES Final Result Performing Organization Address [facility]/ZIP Co de Phone Number [facility] [address] [place] [phone] * XR Chest 2 Views (05/31/2024 10:00 AM EDT) Anatomical Region Laterality Modality Chest Radiographic Edith ging 05/31/2024 10:0 0 AM EDT Narrative 05/31/2024 10:34 AM EDT ? [facility] ?[address] ?[place] [address] ?XRay Report ? Signed ? Patient: Gaetan,Ciarra ?MR#: [id number] ?? [id number] ? : 1970 ?Acct:[id number] ? Age/Sex: 54 / F ?ADM Date: 05/31/24 ? Loc: HO.ED ? Attending Dr: ? Ordering Physician: Generic ED Physician ?? Date of Service: 05/31/24 ?? Procedure(s): XR chest 2V ?? Accession Number(s): [id number] ? cc: Generic ED Physician; ISAI CABA [...] DD/ 1000 ? TD/TT: 05/31/24 1019 ? Cement Patcher: ? Procedure Note David Graham - 05/31/[address] [address] XRay Report Signed Patient: Gumaro Finn#: [id number] : 1970Acct:[id number] Age/Sex: 54 / FADM Date: 05/31/24 Loc: HO.ED Attending Dr: Ordering Physician: Generic ED Physician Date of Service: 05/31/24 Procedure(s): XR chest 2V Accession Number(s): [id number] cc: Generic ED Physician; CABA,ISAI BI DATA ARCHITECT EXAMINATION: XR CHEST CLINICAL INFORMATION: Cough, SOB, [...] 05/31/24 1032 DD/ 1000 TD/TT: 05/31/24 1019 Cement Patcher: [facility] External Provider IMG XR PROCEDURES Final Result documented in this encounter Visit Diagnoses Not on filedocumented in this encounter Care Teams Cnc Wood Lathe Operator Relationship Specialty Start Date End Date Isai Caba, CLAU [address] [place] [phone] PCP - General Family Medicine 10/03/20 documented as of this encounter
== END 2024-05-31 11:45 | disposition home or self-care (01) ==
PROVIDERS: Physician Assistant Medical; Emergency Provider Emergency Medicine; PCP Nurse Practitioner Primary Care
DX: B34.9 Viral infection, unspecified (principal); R06.02 Shortness of breath; R05.9 Cough, unspecified; R07.9 Chest pain, unspecified; Z03.818 Encounter for observation for suspected exposure to other biological agents ruled out; I10 Essential (primary) hypertension; F17.210 Nicotine dependence, cigarettes, uncomplicated; F12.90 Cannabis use, unspecified, uncomplicated; Z79.899 Other long term (current) drug therapy
CPT/HCPCS: 0241U; 71046; 80048; 84484; 85025; 87651; 93005; 99283; 99284

== ENCOUNTER → 2024-05-31 09:46 | Outpatient (BNV) | payer MEDICAID, SELFPAY | PROVIDERS: Emergency Provider Emergency Medicine; PCP Nurse Practitioner Primary Care; Visit Provider Internal Medicine Cardiovascular Disease | DX: R07.9 Chest pain, unspecified (principal) | CPT/HCPCS: 93010 ==

== ENCOUNTER → 2024-05-31 10:00 | Outpatient (BNV) | payer MEDICAID, SELFPAY | PROVIDERS: PCP Nurse Practitioner Primary Care; Visit Provider Radiology Diagnostic Radiology | DX: R06.02 Shortness of breath (principal); R07.9 Chest pain, unspecified | CPT/HCPCS: 71046 ==

== ENCOUNTER 2024-10-20 11:19 | Outpatient (REF) | payer MEDICAID, SELFPAY ==
--- NOTE | ~2024-10-20 | MM_ITS ---
EXAMINATION: MM SCREENING DIGITAL BREAST TOMOSYNTHESIS, BILATERAL CLINICAL INFORMATION: Screening. Asymptomatic. COMPARISON: Mammography: Comparison is made with available priors TECHNIQUE: Digital breast mammography with tomosynthesis is performed in both the craniocaudal and mediolateral oblique views along with computer-aided detection (CAD). FINDINGS: The breasts are heterogeneously dense, which may obscure small masses (ACR BI-RADS breast composition Category c). There are no significant masses, abnormal calcifications, or other abnormalities. MM/MM tomosynthesis screening BI IMPRESSION: No mammographic evidence of malignancy. ASSESSMENT: BI-RADS BI-RADS 1 - Negative RECOMMENDATION: Routine annual mammography screening. 1 year F/U This examination should not preclude the clinical evaluation of a suspicious palpable abnormality. This patient's information was entered into a reminder system with a target due date for their next mammogram. Electronically signed by: Ilene Pruett DO 10/23/2024 05:40 PM EDT
== END 2024-10-20 11:20 | disposition home or self-care (01) ==
LOC: HO.MAMMO 11:19
PROVIDERS: PCP Nurse Practitioner Primary Care; Visit Provider Nurse Practitioner Primary Care
DX: Z12.31 Encounter for screening mammogram for malignant neoplasm of breast (principal)
CPT/HCPCS: 77063; 77067

== ENCOUNTER → 2024-10-20 11:45 | Outpatient (BNV) | payer MEDICAID, SELFPAY | PROVIDERS: PCP Nurse Practitioner Primary Care; Visit Provider Internal Medicine | DX: Z12.31 Encounter for screening mammogram for malignant neoplasm of breast (principal) | CPT/HCPCS: 77063; 77067 ==